=== PATIENT | male | born 1935 | race African-American/Black ===

== ENCOUNTER 2019-01-09 16:48 | Observation (INO) | payer OTHER ==
--- NOTE | 2019-01-09 17:31 | ER ---
Nurse's Notes [facility] Name: Cliff Aguilar Age: 83 yrs Sex: Male : 1935 Arrival Date: 01/09/2019 Time: 16:55 Bed 5 Private MD: Festus Vences Diagnosis: Weakness;Fever, unspecified;Pneumonia due to other specified bacteria;Cough;Elevated white blood cell count;Unspecified kidney failure;Urinary tract infection, site not specified Presentation: 01/09 17:17 Presenting complaint: states: cough, congestion, fever since yesterday. Transition iw of care: patient was not received from another setting of care. Onset of symptoms was January 08, 2019. Risk Assessment: Do you want to hurt yourself or someone else? Patient reports no desire to harm self or others. Initial Sepsis Screen: Does the patient meet any 2 criteria? Temp <36.0*C (96.8*F)) or > 38.3*C (100.9*F). Initial Sepsis Screen: Does the patient have a suspected source of infection? Yes: Productive cough/pneumonia. Care prior to arrival: None. 17:17 Method Of Arrival: Wheelchair iw 17:17 Acuity: SHA 3 iw Triage Assessment: 17:20 General: Appears in no apparent distress. comfortable, Behavior is cooperative, bp appropriate for age, anxious. Pain: Denies pain. EENT: No deficits noted. Neuro: No deficits noted. Cardiovascular: No deficits noted. Respiratory: No deficits noted. GI: No signs and/or symptoms were reported involving the gastrointestinal system. : No signs and/or symptoms were reported regarding the genitourinary system. Derm: No deficits noted. Musculoskeletal: No deficits noted. Historical: - Allergies: 17:25 No Known Allergies; iw - Home Meds: 17:19 amlodipine 10 mg tab 1 tab once daily [Active]; aspirin 81 mg Oral TbEC 1 tab once iw daily [Active]; chlorthalidone 25 mg Oral tab 1 tab once daily [Active]; Coreg 12.5 mg Oral tab 1 tab 2 times per day [Active]; glipizide 10 mg Oral tab 1 tab once daily [Active]; ranitidine HCl 150 mg Oral cap 1 cap once daily [Active]; tamsulosin 0.4 mg Oral cp24 1 cap twice a day [Active]; - PMHx: 17:19 BPH; Diabetes - NIDDM; GERD; High Cholesterol; Hypertension; iw - PSHx: 17:19 Knee surgery; iw - Immunization history:: Adult Immunizations up to date. - Family history:: not pertinent. - Ebola Screening: : Patient negative for fever greater than or equal to 101.5 degrees Fahrenheit, and additional compatible Ebola Virus Disease symptoms Patient denies exposure to infectious person Patient denies travel to an Ebola-affected area in the 21 days before illness onset No symptoms or risks identified at this time. - Social history:: Smoking status: Patient/guardian denies using tobacco. Screenin:16 Abuse screen: Denies threats or abuse. Denies injuries from another. Nutritional bp screening: No deficits noted. Tuberculosis screening: No symptoms or risk factors identified. Fall Risk None identified. Assessment: 17:20 General: SEE TRIAGE NOTE. bp 18:15 Reassessment: ADMIT IN PROCESS, VS STABLE ON MONITOR. bp 18:50 Reassessment: PER MD, ADMIT ON HOLD FOR LAB RESULTS. bp 19:19 Reassessment: Patient and/or family updated on plan of care and expected duration. Pain tr5 level reassessed. Patient is alert, oriented x 3, equal unlabored respirations, skin warm/dry/pink. 20:27 Reassessment: Patient and/or family updated on plan of care and expected duration. Pain tr5 level reassessed. Patient is alert, oriented x 3, equal unlabored respirations, skin warm/dry/pink. Patient states feeling better. Vital Signs: 17:10 BP 118 / 59 LA Sitting (auto/lg); Pulse 82; Resp 20; Temp 102.8(O); Pulse Ox 99% ; jp3 Weight 106.59 kg (R); Height 5 ft. 10 in. (177.80 cm) (R); Pain 0/10; 18:18 BP 131 / 62; Pulse 70; Resp 22; Pulse Ox 98% ; bp 18:51 BP 122 / 87; Pulse 78; Resp 16; Pulse Ox 98% ; bp 19:55 BP 125 / 52; Pulse 74; Resp 16; Temp 98.6(O); Pulse Ox 100% on R/A; tr5 20:56 BP 122 / 63; Pulse 64; Resp 19; Pulse Ox 99% on R/A; tr5 17:10 Body Mass Index 33.72 (106.59 kg, 177.80 cm) jp3 17:10 patient complains of weakness jp3 ED Course: 16:55 Patient arrived in ED. dl4 16:55 Festus Vences MD is Private Physician. dl4 16:57 Fortino Nielsen MD is Attending Physician. brianna 17:07 Shamir Gonzalez, RAZIA is Primary Nurse. hj 17:11 Patient has correct armband on for positive identification. Placed in gown. Bed in low jp3 position. Call light in reach. Pillow given. Verbal reassurance given. equipment monitor phototypesetting on. Pulse ox on. NIBP on. 17:11 Patient maintains SpO2 saturation greater than 95% on room air. jp3 17:18 Triage completed. iw 17:20 Arm band placed on. bp 17:29 Festus Vences MD is Hospitalizing Provider. brianna 17:56 EKG done, by technician trainee. reviewed by Fortino Nielsen MD. sm3 18:10 Inserted saline lock: 20 gauge in right forearm, using aseptic technique. Blood bp collected. 18:16 No provider procedures requiring assistance completed. Patient admitted, IV remains in bp place. 18:30 Martin Salinas, RN is Primary Nurse. bp 19:19 Awaiting lab results. tr5 19:19 Report received from Martin RANDLE. equipment monitor phototypesetting on. Pulse ox on. NIBP on. tr5 19:40 Straight cath inserted, using sterile technique, 16 Fr. Specimen obtained. lp1 20:27 Report given to Dylan RANDLE. tr5 Administered Medications: 18:10 Drug: NS 0.9% 1000 ml Route: IV; Rate: 1 bolus; Site: right forearm; bp 20:29 Follow up: IV Status: Completed infusion; IV Intake: 1000ml tr5 18:10 Drug: NS 0.9% 1000 ml Route: IV; Rate: 125 ml/hr; Site: right forearm; bp 19:52 Follow up: IV Status: Infusion continued upon admission lp1 20:29 Follow up: IV Status: Infusion continued upon admission tr5 18:49 Drug: Tylenol 650 mg Route: PO; bp 19:52 Follow up: Response: Temperature is decreased lp1 18:50 Drug: NS 0.9% 1000 ml Route: IV; Rate: 1 bolus; Site: right forearm; bp 20:45 Follow up: IV Status: Completed infusion; IV Intake: 800ml lp1 19:45 Drug: Rocephin 2 grams Route: IV; Rate: per protocol; Site: right hand; lp1 20:30 Follow up: Response: No adverse reaction; IV Status: Completed infusion tr5 19:53 Drug: Zithromax 500 mg Route: IVPB; Infused Over: 1 hrs; Site: right hand; lp1 20:30 Follow up: Response: No adverse reaction; IV Status: Completed infusion; IV Intake: tr5 250ml Intake: 20:29 IV: 1000ml; Total: 1000ml. tr5 20:30 IV: 250ml; Total: 1250ml. tr5 20:45 IV: 800ml; Total: 2050ml. lp1 Outcome: 17:30 Decision to Hospitalize by Provider. brianna 19:53 Condition: stable lp1 19:53 Instructed on the need for admit. 20:27 Admitted to Med/surg accompanied by tech, via stretcher, with chart, Report called to trCarlos Richardson RN 21:05 Patient left the ED. tr5 Signatures: Fortino Nielsen MD MD cha Williams, Irene, RN RAZIA iw Lolita De Paz, RAZIA RN lp1 Shamir Gonzalez RN Martin Hernandez RN RN bp Montes, Shakira 3 Rubin Skinner jp3 Brandon Davey dl4 Polo Carnes, RAZIA RN tr5 Corrections: (The following items were deleted from the chart) 19:56 19:55 BP 125 / 52; Pulse 74bpm; Resp 16bpm; Pulse Ox 100% RA; tr5 tr5
--- NOTE | 2019-01-09 17:32 | EDPHYS ---
Physician Documentation [facility] Name: Cliff Aguilar Age: 83 yrs Sex: Male : 1935 Arrival Date: 01/09/2019 Time: 16:55 Bed 5 Private MD: Festus Vences ED Physician Fortino Nielsen HPI: 01/09 17:17 This 83 yrs old Black Male presents to ER via Unassigned with complaints of General brianna Weakness. 17:17 fever and cough. The patient or guardian reports cough. Onset: The symptoms/episode brianna began/occurred 1 day(s) ago. Severity of symptoms: At their worst the symptoms were mild, in the emergency department the symptoms are unchanged. Modifying factors: The symptoms are alleviated by cool environment, the symptoms are aggravated by exertion. The patient reports fever, that was measured at 102 degrees Fahrenheit. Modifying factors: there are no obvious modifying factors. 17:19 Associated signs and symptoms: Pertinent positives: fever. brianna Historical: - Allergies: 17:25 No Known Allergies; iw - Home Meds: 17:19 amlodipine 10 mg tab 1 tab once daily [Active]; aspirin 81 mg Oral TbEC 1 tab once iw daily [Active]; chlorthalidone 25 mg Oral tab 1 tab once daily [Active]; Coreg 12.5 mg Oral tab 1 tab 2 times per day [Active]; glipizide 10 mg Oral tab 1 tab once daily [Active]; ranitidine HCl 150 mg Oral cap 1 cap once daily [Active]; tamsulosin 0.4 mg Oral cp24 1 cap twice a day [Active]; - PMHx: 17:19 BPH; Diabetes - NIDDM; GERD; High Cholesterol; Hypertension; iw - PSHx: 17:19 Knee surgery; iw - Immunization history:: Adult Immunizations up to date. - Family history:: not pertinent. - Ebola Screening: : Patient negative for fever greater than or equal to 101.5 degrees Fahrenheit, and additional compatible Ebola Virus Disease symptoms Patient denies exposure to infectious person Patient denies travel to an Ebola-affected area in the 21 days before illness onset No symptoms or risks identified at this time. - Social history:: Smoking status: Patient/guardian denies using tobacco. ROS: 17:17 Eyes: Negative for injury, pain, redness, and discharge, ENT: Negative for injury, brianna pain, and discharge, Neck: Negative for injury, pain, and swelling, Cardiovascular: Negative for chest pain, palpitations, and edema, Abdomen/GI: Negative for abdominal pain, nausea, vomiting, diarrhea, and constipation, Back: Negative for injury and pain, : Negative for injury, bleeding, discharge, and swelling, MS/Extremity: Negative for injury and deformity, Skin: Negative for injury, rash, and discoloration, Neuro: Negative for headache, weakness, numbness, tingling, and seizure, Psych: Negative for depression, anxiety, suicide ideation, homicidal ideation, and hallucinations, Allergy/Immunology: Negative for hives, rash, and allergies, Endocrine: Negative for neck swelling, polydipsia, polyuria, polyphagia, and marked weight changes, Hematologic/Lymphatic: Negative for swollen nodes, abnormal bleeding, and unusual bruising. 17:17 Constitutional: Positive for body aches, chills, fatigue, fever, malaise. 17:17 Respiratory: Positive for cough, with no reported sputum. Exam: 17:17 Head/Face: Normocephalic, atraumatic. Eyes: Pupils equal round and reactive to light, brianna extra-ocular motions intact. Lids and lashes normal. Conjunctiva and sclera are non-icteric and not injected. Cornea within normal limits. Periorbital areas with no swelling, redness, or edema. ENT: Nares patent. No nasal discharge, no septal abnormalities noted. Tympanic membranes are normal and external auditory canals are clear. Oropharynx with no redness, swelling, or masses, exudates, or evidence of obstruction, uvula midline. Mucous membranes moist. Neck: Trachea midline, no thyromegaly or masses palpated, and no cervical lymphadenopathy. Supple, full range of motion without nuchal rigidity, or vertebral point tenderness. No Meningismus. Chest/axilla: Normal chest wall appearance and motion. Nontender with no deformity. No lesions are appreciated. Cardiovascular: Regular rate and rhythm with a normal S1 and S2. No gallops, murmurs, or rubs. Normal PMI, no JVD. No pulse deficits. Respiratory: Lungs have equal breath sounds bilaterally, clear to auscultation and percussion. No rales, rhonchi or wheezes noted. No increased work of breathing, no retractions or nasal flaring. Abdomen/GI: Soft, non-tender, with normal bowel sounds. No distension or tympany. No guarding or rebound. No evidence of tenderness throughout. Back: No spinal tenderness. No costovertebral tenderness. Full range of motion. Skin: Warm, dry with normal turgor. Normal color with no rashes, no lesions, and no evidence of cellulitis. MS/ Extremity: Pulses equal, no cyanosis. Neurovascular intact. Full, normal range of motion. Neuro: Awake and alert, GCS 15, oriented to person, place, time, and situation. Cranial nerves II-XII grossly intact. Motor strength 5/5 in all extremities. Sensory grossly intact. Cerebellar exam normal. Normal gait. Psych: Awake, alert, with orientation to person, place and time. Behavior, mood, and affect are within normal limits. 17:17 Constitutional: The patient appears febrile, lethargic. Vital Signs: 17:10 BP 118 / 59 LA Sitting (auto/lg); Pulse 82; Resp 20; Temp 102.8(O); Pulse Ox 99% ; jp3 Weight 106.59 kg (R); Height 5 ft. 10 in. (177.80 cm) (R); Pain 0/10; 18:18 BP 131 / 62; Pulse 70; Resp 22; Pulse Ox 98% ; bp 18:51 BP 122 / 87; Pulse 78; Resp 16; Pulse Ox 98% ; bp 19:55 BP 125 / 52; Pulse 74; Resp 16; Temp 98.6(O); Pulse Ox 100% on R/A; tr5 20:56 BP 122 / 63; Pulse 64; Resp 19; Pulse Ox 99% on R/A; tr5 17:10 Body Mass Index 33.72 (106.59 kg, 177.80 cm) jp3 17:10 patient complains of weakness 3 MDM: 16:57 Patient medically screened. [facility] 17:17 Data reviewed: vital signs, nurses notes, lab test result(s), EKG, radiologic studies, [facility] plain films. 01/09 17:16 Order name: Basic Metabolic Panel; Complete Time: 19:01 [facility] 01/09 17:16 Order name: CBC with Diff; Complete Time: 18:29 [facility] 01/09 17:16 Order name: LFT's; Complete Time: 19:01 [facility] 01/09 17:16 Order name: Magnesium; Complete Time: 19:01 [facility] 01/09 17:16 Order name: NT PRO-BNP; Complete Time: 19:01 [facility] 01/09 17:16 Order name: PT-INR; Complete Time: 19: [facility] 01/09 17:16 Order name: Troponin (emerg Dept Use Only); Complete Time: 19:01 [facility] 01/09 17:16 Order name: Blood Culture Adult (2) [facility] 01/09 17:16 Order name: Urine Culture [facility] 01/09 17:16 Order name: Lipase; Complete Time: 19:01 [facility] 01/09 17:16 Order name: Influenza Screen (a \T\ B); Complete Time: 19: [facility] 01/09 17:16 Order name: Lactate; Complete Time: 19: [facility] 01/09 17:16 Order name: Procalcitonin [facility] 01/09 19:43 Order name: Urine Dipstick--Ancillary (enter results) mw2 01/09 17:16 Order name: XRAY Chest (1 view) [facility] 01/09 17:16 Order name: EKG; Complete Time: 17:20 [facility] 01/09 17:16 Order name: Cardiac monitoring; Complete Time: 18:14 [facility] 01/09 17:16 Order name: EKG - Nurse/Tech; Complete Time: 18:14 [facility] 01/09 17:16 Order name: IV Saline Lock; Complete Time: 18:14 [facility] 01/09 17:16 Order name: Labs collected and sent; Complete Time: 18:14 [facility] 01/09 17:16 Order name: O2 Per Protocol; Complete Time: 18:14 [facility] 01/09 17:16 Order name: O2 Sat Monitoring; Complete Time: 18:14 [facility] 01/09 18:12 Order name: RAD; Complete Time: 18:29 [facility] 01/09 20:14 Order name: Urine Dipstick-Ancillary [facility] 01/09 17:16 Order name: Urine Dipstick-Ancillary (obtain specimen); Complete Time: 19:56 [facility] Administered Medications: 18:10 Drug: NS 0.9% 1000 ml Route: IV; Rate: 1 bolus; Site: right forearm; bp 20:29 Follow up: IV Status: Completed infusion; IV Intake: 1000ml tr5 18:10 Drug: NS 0.9% 1000 ml Route: IV; Rate: 125 ml/hr; Site: right forearm; bp 19:52 Follow up: IV Status: Infusion continued upon admission lp1 20:29 Follow up: IV Status: Infusion continued upon admission tr5 18:49 Drug: Tylenol 650 mg Route: PO; bp 19:52 Follow up: Response: Temperature is decreased lp1 18:50 Drug: NS 0.9% 1000 ml Route: IV; Rate: 1 bolus; Site: right forearm; bp 20:45 Follow up: IV Status: Completed infusion; IV Intake: 800ml lp1 19:45 Drug: Rocephin 2 grams Route: IV; Rate: per protocol; Site: right hand; lp1 20:30 Follow up: Response: No adverse reaction; IV Status: Completed infusion tr5 19:53 Drug: Zithromax 500 mg Route: IVPB; Infused Over: 1 hrs; Site: right hand; lp1 20:30 Follow up: Response: No adverse reaction; IV Status: Completed infusion; IV Intake: tr5 250ml Disposition: 01/09/19 17:30 Hospitalization ordered by Festus Vences for Inpatient Admission. Preliminary diagnosis are Weakness, Fever, unspecified, Pneumonia due to other specified bacteria, Cough, Elevated white blood cell count, Unspecified kidney failure, Urinary tract infection, site not specified. - Bed requested for Telemetry/MedSurg (Inpatient). - Status is Inpatient Admission. tr5 - Condition is Stable. - Problem is new. - Symptoms have improved. UTI on Admission? Yes Signatures: Dispatcher [employer] Whitney Ochoa RN RN dw Anderson, Corey, MD MD cha Williams, Irene, RN RN Lolita De Paz RN RN [facility] Martin Salinas RN RN bp Rodriguez, Tommie, RN RN tr5 Corrections: (The following items were deleted from the chart) 17:48 17:30 Hospitalization Ordered by Festus Vences MD for Inpatient Admission. Preliminary dw diagnosis is Weakness; Fever, unspecified; Pneumonia due to other specified bacteria; Cough. Bed requested for Telemetry/MedSurg (Inpatient). Status is Inpatient Admission. Condition is Stable. Problem is new. Symptoms have improved. UTI on Admission? No. brianna 17:52 17:48 01/09/2019 17:30 Hospitalization Ordered by Festus Vences MD for Inpatient Admission. Preliminary diagnosis is Weakness; Fever, unspecified; Pneumonia due to other specified bacteria; Cough. Bed requested for Telemetry/MedSurg (Inpatient). Status is Inpatient Admission. Condition is Stable. Problem is new. Symptoms have improved. UTI on Admission? No. 18:30 17:52 01/09/2019 17:30 Hospitalization Ordered by Festus Vences MD for Inpatient brianna Admission. Preliminary diagnosis is Weakness; Fever, unspecified; Pneumonia due to other specified bacteria; Cough. Bed requested for Telemetry/MedSurg (Inpatient). Status is Inpatient Admission. Condition is Stable. Problem is new. Symptoms have improved. UTI on Admission? No. 18:59 18:30 01/09/2019 17:30 Hospitalization Ordered by Festus Vences MD for Inpatient brianna Admission. Preliminary diagnosis is Weakness; Fever, unspecified; Pneumonia due to other specified bacteria; Cough; Elevated white blood cell count. Bed requested for Telemetry/MedSurg (Inpatient). Status is Inpatient Admission. Condition is Stable. Problem is new. Symptoms have improved. UTI on Admission? No. [facility] 19:42 18:59 01/09/2019 17:30 Hospitalization Ordered by Festus Vences MD for Inpatient brianna Admission. Preliminary diagnosis is Weakness; Fever, unspecified; Pneumonia due to other specified bacteria; Cough; Elevated white blood cell count; Unspecified kidney failure. Bed requested for Telemetry/MedSurg (Inpatient). Status is Inpatient Admission. Condition is Stable. Problem is new. Symptoms have improved. UTI on Admission? No. [facility] 21:05 19:42 01/09/2019 17:30 Hospitalization Ordered by Festus Vences MD for Inpatient tr5 Admission. Preliminary diagnosis is Weakness; Fever, unspecified; Pneumonia due to other specified bacteria; Cough; Elevated white blood cell count; Unspecified kidney failure; Urinary tract infection, site not specified. Bed requested for Telemetry/MedSurg (Inpatient). Status is Inpatient Admission. Condition is Stable. Problem is new. Symptoms have improved. UTI on Admission? Yes. brianna
[2019-01-09] MEDS ORDERED: GLUCAGON 1 MG/VIAL IM PRN (17:38)
[2019-01-09] MEDS ORDERED: D50W 25 GM/50 ML SYRINGE IV PRN (17:38)
--- NOTE | 2019-01-09 18:07 | RAD REPORT ---
EXAM DESCRIPTION: [place] Single View01/09/2019 5:55 pm CLINICAL HISTORY: Cough COMPARISON: December 2017 FINDINGS: The lungs appear clear of acute infiltrate. The heart is mildly enlarged IMPRESSION: No acute abnormalities displayed
[2019-01-09 18:22] LABS: Absolute Lymphocytes (CBC) 3.4 K/uL (0.7-4.9); Basophils % 0.2 % (0-1.3); Hematocrit 38.6 % (39.6-49.0); Lymphocytes % 19.4 % (15.3-44.8); MPV 8.2 fL (7.6-11.3); RBC Red Blood Cell Count 4.27 M/uL (4.33-5.43)
[2019-01-09 18:29] LABS: Protime INR 1.12
[2019-01-09 18:47] LABS: ALT/SGPT 16 U/L (12-78); AST/SGOT 15 U/L (15-37); Albumin 3.7 g/dL (3.4-5.0); Alkaline Phosphatase 93 U/L (45-117); BUN Blood Urea Nitrogen 22 mg/dL (7-18); Bicarbonate 25 mmol/L (21-32); Bilirubin Direct 0.5 mg/dL (0-0.2); Bilirubin Total 2.4 mg/dL (0.2-1.0); Glucose Level 96 mg/dL (74-106); Lipase 111 U/L (73-393); NT PRO-BNP 635 pg/mL (<450); Potassium 4.1 mmol/L (3.5-5.1); Protein, Total 7.9 g/dL (6.4-8.2); Sodium Level 135 mmol/L (136-145); Troponin (Emerg Dept Use Only) < 0.02 ng/mL (0.0-0.045)
[2019-01-09] MEDS ORDERED: NA CHLORIDE 0.9% 2,000 ML ONE (18:55)
[2019-01-09] MEDS ORDERED: ACETAMINOPHEN 325 MG TABLET ONE (18:55)
[2019-01-09] MEDS ORDERED: CEFTRIAXONE/SWI 2gm 2 GM/20 ML SYR IV ONE (19:00)
[2019-01-09] MEDS ORDERED: AZITHROMYCIN IV 500 MG in NA CHLORIDE 0.9% 250 ML IVPB ONE (19:00)
[2019-01-09 20:11] LABS: Urine Blood TRACE (NEG); Urine Glucose NEGATIVE (NEG); Urine Protein 2+ (NEG); Urine pH 5.5 (5.0-7.0)
[2019-01-09] MEDS ORDERED: INSULIN -REGULAR HUMAN 50 UNIT/0.5 ML ML SQ SCH (21:00)
[2019-01-09] MEDS ORDERED: ONDANSETRON 4 MG/2 ML VIAL IV PRN (21:29)
[2019-01-09] MEDS: NA CHLORIDE 0.9% 1,000 ML IV SCH (21:29)
[2019-01-09] MEDS ORDERED: ALBUTEROL 2.5 MG/3 ML NEB SOL NEB PRN (21:29)
[2019-01-09] MEDS ORDERED: MORPHINE 4 MG/ML SYR IV PRN (21:29)
[2019-01-09] MEDS ORDERED: IPRATROPIUM BROM 0.5MG/2.5ML NEB PRN (21:29)
[2019-01-09 22:08] VITALS: BMI 33.1
[2019-01-09] MEDS: FAMOTIDINE 20 MG/2 ML VIAL IV SCH (22:22)
[2019-01-10] MEDS: NA CHLORIDE 0.9% 1,000 ML IV SCH ×3 (05:40→21:07)
[2019-01-10 05:46] LABS: Absolute Lymphocytes (CBC) 3.4 K/uL (0.7-4.9); Basophils % 0.4 % (0-1.3); Hematocrit 34.5 % (39.6-49.0); Lymphocytes % 18.1 % (15.3-44.8); MPV 8.5 fL (7.6-11.3); RBC Red Blood Cell Count 3.85 M/uL (4.33-5.43)
[2019-01-10] MEDS: ACETAMINOPHEN 500 MG TAB PO PRN ×2 (05:47→17:11)
[2019-01-10 06:01] LABS: Potassium 3.9 mmol/L (3.5-5.1)
[2019-01-10] MEDS ORDERED: PNEUMOCOCCAL VACCINE 0.5 ML IMVAC ONE (08:00)
--- NOTE | 2019-01-10 08:31 | RAD REPORT ---
EXAM DESCRIPTION: RAD - Chest Single View - 01/10/2019 6:22 am CLINICAL HISTORY: Chest Pain Chest pain. COMPARISON: Chest Single View dated 01/09/2019; Chest Pa And Lat (2 Views) dated 01/07/2018; Chest Pa And Lat (2 Views) dated 03/26/2017; Chest Single View dated 03/01/2017 FINDINGS: Portable technique limits examination quality. The lungs are grossly clear. The heart is moderately enlarged in size. No displaced fractures.
[2019-01-10] MEDS ORDERED: CEFTRIAXONE 1 GM/NS 50 ML 1 GM/50 ML BAG IV SCH (09:00)
[2019-01-10] MEDS: CEFTRIAXONE/SWI 1gm 1 GM/10 ML SYR IV SCH ×2 (09:00→21:00)
[2019-01-10] MEDS ORDERED: AZITHROMYCIN IV 500 MG in NA CHLORIDE 0.9% 250 ML IVPB SCH ×2 (09:00→21:00)
[2019-01-10] MEDS: FAMOTIDINE 20 MG/2 ML VIAL IV SCH (10:17)
--- NOTE | 2019-01-10 13:35 | EKG ---
Test Date: 2019-01-10 Test Time: 07:59:13 Heel Room Supervisor: RICHA MEASUREMENT RESULTS: Intervals: Rate: 74 NV: 180 QRSD: 92 QT: 408 QTc: 452 [place]: P: 35 NV: 180 QRS: -43 T: 40 INTERPRETIVE STATEMENTS: Normal sinus rhythm Possible Left atrial enlargement Left axis deviation Anterior infarct, age undetermined Abnormal ECG Compared to ECG 01/09/2019 17:49:27 Left-axis deviation now present Left anterior fascicular block no longer present Myocardial infarct finding still present Electronically Signed On 01-10-19 13:34:02 CDT by Noe Brown
--- NOTE | 2019-01-10 13:38 | EKG ---
Test Date: 2019-01-09 Test Time: 17:49:27 [employer] Supervisor: RICHA MEASUREMENT RESULTS: Intervals: Rate: 70 RI: 186 QRSD: 94 QT: 388 QTc: 419 [place]: P: 39 RI: 186 QRS: -54 T: 42 INTERPRETIVE STATEMENTS: Normal sinus rhythm Possible Left atrial enlargement Left anterior fascicular block Inferior infarct, age undetermined Anterior infarct, age undetermined Abnormal ECG Compared to ECG 03/01/2017 00:33:36 Left anterior fascicular block now present Myocardial infarct finding now present Electronically Signed On 01-10-19 13:34:23 CDT by Noe Brown
[2019-01-10] MEDS ORDERED: ALBUTEROL 2.5 MG/3 ML NEB SOL NEB PRN (14:30)
[2019-01-10] MEDS ORDERED: IPRATROPIUM BROM 0.5MG/2.5ML NEB PRN (14:31)
[2019-01-10] MEDS: CARVEDILOL 12.5 MG TAB PO SCH (21:05)
[2019-01-10] MEDS: CIPROFLOXACIN 400mg IV 400 MG/200 ML BAG IV SCH (21:06)
[2019-01-10] MEDS: TAMSULOSIN 0.4 MG SR CAP PO SCH (21:06)
--- NOTE | 2019-01-11 00:11 | PN ---
Date of Progress Note: 01/10/2019 The patient states he feels somewhat better today. His temperature has dropped down, although he sti ll running a low-grade fever. His urinalysis was 4+ E coli. Chest x-ray x2 showed no evidence of pn eumonia and patient states he has a minimal amount of cough. Antibiotics will be changed from Zithro max to Cipro and continue with Rocephin. He was also started on physical therapy. Had a vascular wo rkup, which was scheduled for today will be rescheduled possibly prior to discharge depending on his physical status. HR/MODL Voice ID: [id number] Report ID: [id number]
--- NOTE | 2019-01-11 00:11 | HP ---
Date of Admission: 01/09/2019 Entrance Complaint: Cough, chills, fever. History Of Present Illness: The patient presented to the emergency room with a rather sudden onset o f what was described as shaking, unsteadiness following going to the bathroom. The patient had an im pression that it was congestion and cough and the possibility of this being the source of the fever a nd some general malaise. The patient has had some altered mental status over the past few months and was recently seen in the office where a vascular workup is in process. Past Medical History: As mentioned above significant altered mental status according to family membe rs over the past few months, also has a history of hypertension and has been in relatively good contr ol on medication and has had some renal insufficiency. He has been seen by urologist and nephrologis t for a number of years. Also has an IDDM, which has been in good control on diet and medication. Family History: Noncontributory. Social History: Nonsmoker, nondrinker. Physical Examination: General: He is somewhat disorientated elderly male. Vital Signs: Stable vital signs. Head and Neck: Normocephalic. Pupils equal, reactive to light and accommodation. Fundi negative. Trachea midline. Thyroid not palpable. ENT: Negative. Chest: Occasional high-pitched rhonchi and rales at both bases. Adequate air entry and movement francisca aterally. Cardiovascular: PMI midclavicular line. Heart sounds normal. Peripheral pulses present and equal b ilaterally. Abdomen: No organomegaly. Bowel sounds present. Extremities: Moderately dehydrated. Good tone and movement bilaterally. Reflexes physiologic. Rectal: Deferred. Impression: Fever of unknown origin, possible pneumonitis, possible urinary tract infection. Plan: Patient will be admitted, placed on IV antibiotics. Depending on results of culture, further treatment will be given. HR/MODL Voice ID: [id number]
[2019-01-11 06:39] LABS: Absolute Lymphocytes (CBC) 4.2 K/uL (0.7-4.9); Basophils % 0.2 % (0-1.3); Hematocrit 33.5 % (39.6-49.0); Lymphocytes % 24.2 % (15.3-44.8); MPV 8.5 fL (7.6-11.3); RBC Red Blood Cell Count 3.69 M/uL (4.33-5.43)
[2019-01-11 08:34] LABS: Urine Appearance CLEAR; Urine Bilirubin NEGATIVE (NEG); Urine Blood TRACE (NEG); Urine Color YELLOW; Urine Glucose NEGATIVE (NEG); Urine Protein NEGATIVE (NEG); Urine pH 5.5 (5.0-7.0)
[2019-01-11 08:37] LABS: Urine Microscopic Reflex ORDER UMIC
[2019-01-11 08:49] LABS: Urine RBC <5 /HPF (NONE SEEN)
[2019-01-11 08:50] LABS: Urine Bacteria <20 /HPF (NONE SEEN)
[2019-01-11 08:53] LABS: Urine Culture Reflex Order NOT NEEDED
[2019-01-11] MEDS: CARVEDILOL 12.5 MG TAB PO SCH ×2 (08:58→21:15)
[2019-01-11] MEDS: FAMOTIDINE 20 MG/2 ML VIAL IV SCH (08:58)
[2019-01-11] MEDS: CEFTRIAXONE/SWI 1gm 1 GM/10 ML SYR IV SCH (08:59)
[2019-01-11] MEDS: AMLODIPINE 10 MG TAB PO SCH (08:59)
[2019-01-11] MEDS: TAMSULOSIN 0.4 MG SR CAP PO SCH ×2 (08:59→21:15)
[2019-01-11] MEDS: CIPROFLOXACIN 400mg IV 400 MG/200 ML BAG IV SCH ×2 (08:59→21:15)
--- NOTE | 2019-01-11 15:01 | RAD REPORT ---
EXAM DESCRIPTION: USCarotid Artery Bilateral01/11/2019 2:47 pm CLINICAL HISTORY: Syncope COMPARISON: None FINDINGS: The velocity of the right internal carotid artery equals 353 cm/sec. The right ICA/CCA rat io 3.3 The velocity of the left internal carotid artery equals 114 cm/sec. The left ICA/CCA ratio 0.7 Marked plaque is present within the right internal carotid artery. 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 Mild 0-49% stenosis Moderate 50-69% stenosis Severe 70-99% stenosis
[2019-01-11 20:37] VITALS: O2SAT 98
[2019-01-11] MEDS ORDERED: TEMAZEPAM 15 MG CAP PO PRN (22:50)
[2019-01-12] MEDS: NA CHLORIDE 0.9% 1,000 ML IV SCH (03:05)
[2019-01-12 07:16] LABS: Absolute Lymphocytes (CBC) 3.9 K/uL (0.7-4.9); Basophils % 0.3 % (0-1.3); Hematocrit 35.4 % (39.6-49.0); Lymphocytes % 31.7 % (15.3-44.8); MPV 8.7 fL (7.6-11.3); RBC Red Blood Cell Count 3.94 M/uL (4.33-5.43)
[2019-01-12] MEDS: AMLODIPINE 10 MG TAB PO SCH (08:04)
[2019-01-12] MEDS: FAMOTIDINE 20 MG/2 ML VIAL IV SCH (08:04)
[2019-01-12] MEDS: CIPROFLOXACIN 400mg IV 400 MG/200 ML BAG IV SCH (08:04)
[2019-01-12] MEDS: TAMSULOSIN 0.4 MG SR CAP PO SCH (08:05)
[2019-01-12] MEDS: CARVEDILOL 12.5 MG TAB PO SCH (08:05)
[2019-01-12 14:50] VITALS: BP 138/79; TEMP 97.3
--- NOTE | 2019-01-12 19:18 | PN ---
Patient states he feels a little bit better. For the first time, his white count has dropped and his intake is adequate. I feel he could be discharged safely on Cipro 500 mg twice a day for 10 days, t o follow up in the office in regard to his UTI. During his hospital stay, the carotid Dopplers were done and revealed a significant lesion on the right. Discussion of followup with Cardiology resulted in being referred to the [facility] for carotid angios, and depending on the results, eithe r a surgical procedure in [place], endarterectomy, and/or conservative care. PT was also involved an d the outpatient physical therapy is obviously a possibility for him. This will be discussed with th e family when he is seen in the office next week. He is encouraged for fluid intake, continue on his usual medications with the addition of Cipro. Final Diagnoses: Urosepsis, possibly lower urinary tract; altered mental status; carotid stenosis; n ah-qoxfxya-nprcmyvic diabetes mellitus, good control. HR/MODL Voice ID: [id number] Report ID: [id number]
== END 2019-01-12 16:20 | disposition home or self-care (01) ==
LOC: ER 16:48 → ERHOLD 17:33 → INTOOBSV 17:33 → 2ND 20:29
PROVIDERS: ADMIT Family Medicine; ATTEND Family Medicine
DX: R50.9 Fever, unspecified (principal); R41.82 Altered mental status, unspecified; R53.81 Other malaise; I65.21 Occlusion and stenosis of right carotid artery; E11.9 Type 2 diabetes mellitus without complications
CPT/HCPCS: 96365; 96361; 93005 ×2; 87040 ×4; 87088; 85025 ×4; 87086; 80048 ×3; 36415 ×3; 83735; 85610; 82962 ×11; 80076; 83605; 87077; 87186; 81003; 84484 ×3; 83690; 84145; 83880 ×2; 87804 ×2; 71045 ×2; 93880; 97112 ×3; 97116 ×4; 97161; 97530; 94640; 94760 ×6; 51702; 99285; J0456 ×2; J0696 ×4; J7030 ×5; J0744 ×4; G0378 ×2; 81015

== ENCOUNTER 2019-01-26 06:42 | Day surgery (SDC) | payer OTHER ==
[2019-01-25 14:48] VITALS: BMI 33.1
[2019-01-25 15:32] LABS: Protime INR 1.02
[2019-01-25 15:34] LABS: Potassium 4.1 mmol/L (3.5-5.1)
[2019-01-26] MEDS ORDERED: NA CHLORIDE 0.9% 500 ML ONE (06:50)
[2019-01-26] MEDS ORDERED: HEPA 1000U/500MLS 1,000 UNIT/500 ML BAG IV ONE (07:16)
[2019-01-26] MEDS ORDERED: LIDOCAINE 1% MPF 30 ML VIAL ONE (07:17)
[2019-01-26] MEDS ORDERED: FENTANYL CITR 100 MCG/2 ML ONE (07:23)
[2019-01-26] MEDS ORDERED: MIDAZOLAM HCL 2 MG/2 ML INJ ONE (07:23)
[2019-01-26] MEDS ORDERED: ATROPINE SULF 1 MG/10 ML SYR IV ONE (07:24)
[2019-01-26] MEDS ORDERED: NA CHLORIDE 0.9% 0 ML ONE (07:24)
[2019-01-26] MEDS ORDERED: ACETYLCYST 20% 4 ML VIAL IH ONE (07:26)
[2019-01-26] MEDS ORDERED: ACETYLCYST 20% 800 MG/4 ML VIAL PO ONE (10:00)
[2019-01-26 14:31] VITALS: BP 139/60; TEMP 97.8; O2SAT 97
--- NOTE | 2019-01-27 03:33 | OP ---
Surgeon: Noe Brown MD Job Training Specialist: Di Varma. Procedure: The patient admitted as an outpatient on 01/26/2019, for left heart catheterization with selective coronary arteriogram and selective bilateral carotid angiogram. Indication: Chest pain, positive stress test and abnormal carotid Doppler. Description Of Procedure: The patient was prepped and draped in the routine sterile fashion, given 2 mg of Versed for IV sedation. A 6-Mongolian sheath was introduced in the right common femoral artery. StarClose was used to close the case. Angiography there was normal. A 6-Mongolian left Sia cathet er was introduced first. Coronary arteriography of the left main shows dual ostium for the circumfle x and LAD with diffuse plaquing throughout and no significant focal stenosis. A Sia 6-Mongolian JR4 was used for the right coronary that was basically a small vessel again with tortuosity and plaquing , but no focal stenosis. Sia catheter was then used to select the right common carotid artery an d the left common carotid artery. Angiography there showed about an 80%-90% stenosis in the ostium o f the right internal carotid artery. The left internal carotid artery had about 30% plaque. There w ere no complications. Blood loss was 5 cc. Total conscious sedation was 40 minutes. Final Diagnoses: Severe cerebrovascular disease, mild coronary artery disease. Plan: For referral to [place] for a right carotid end arterectomy. This CD will be given to the sarah lopez. Case was discussed with the family and the patient. SUMI/MELE Voice ID: [id number] Report ID: [id number]
== END 2019-01-26 14:50 | disposition home or self-care (01) ==
LOC: CCL 06:42
DX: I25.10 Atherosclerotic heart disease of native coronary artery without angina pectoris (principal); I65.21 Occlusion and stenosis of right carotid artery; I10 Essential (primary) hypertension; E78.5 Hyperlipidemia, unspecified; R94.31 Abnormal electrocardiogram [ECG] [EKG]; E11.9 Type 2 diabetes mellitus without complications; K21.9 Gastro-esophageal reflux disease without esophagitis; N40.0 Benign prostatic hyperplasia without lower urinary tract symptoms
CPT/HCPCS: 80048; 36415; 85610; 82962 ×2; 85730; 93454; 36222; C1893; J2250; J3010; J0583

== ENCOUNTER 2020-07-03 16:05 | Inpatient (IN) | payer OTHER ==
--- OUTSIDE RECORDS SUMMARY | 2020-07-03 16:07 | XMS REPORT | Clinical Summary ---
:1935 Author Organization [facility] Address [address] [place] [address] Care Team Providers Name Role Phone Festus Vences MD Primary Care Provider Giovanny Ryan Unavailable Allergies No Known Allergies Medications Medication Sig Dispensed Refills Start Date End Date Status amLODIPine Take 10 mg by mouth 0 06/18/2016 Active (NORVASC) 10 MG daily. tablet carvedilol (COREG) Take 12.5 mg by 1 01/05/2019 Active 12.5 MG tablet mouth 2 (two) times daily. lactulose TK 30 ML PO BID PRF 0 07/29/2016 Active (GENERLAC) 10 CONSTIPATION gram/15 mL solution lovastatin Take 20 mg by mouth 0 06/19/2016 Active (MEVACOR) 20 MG every evening. tablet tamsulosin Take 0.4 mg by 3 12/12/2018 Act say (FLOMAX) 0.4 mg mouth 2 (two) times Cap 24 hr capsule daily. glipiZIDE Take 1 tablet (5 mg 30 tablet 1 03/15/2019 Active (GLUCOTROL) 5 MG total) by mouth tablet daily. famotidine Take 1 tablet (20 30 tablet 1 03/15/2019 Active (PEPCID) 20 MG mg total) by mouth tablet daily. aspirin 81 MG EC Take 1 tablet (81 90 tablet 3 02/02/201901/13 tablet mg total) by mouth daily. clopidogrel Take 1 tablet (75 90 tablet 3 02/02/2019 0 (PLAVIX) 75 mg mg total) by mouth tablet daily. losartan (COZAAR) Take 1 tablet (25 30 tablet 1 03/16/201907/2019 25 MG tablet mg total) by mouth daily. Active Problems Problem Noted Date Altered mental status 03/12/2019 Syncope, unspecified syncope type 03/10/2019 Carotid artery stenosis 01/31/2019 Carotid stenosis 01/31/2019 S/P carotid endarterectomy (Levi 01/31) 01/31/2019 Respiratory insufficiency 01/31/2019 Hypertensive urgency 01/31/2019 Diabetes mellitus 01/31/2019 GERD (gastroesophageal reflux disease) 01/31/2019 Hyperlipidemia 01/31/2019 Hypertension 01/31/2019 Carotid artery occlusion Family History Medical History Relation Name Comments Heart disease Brother Heart disease Father Hyperlipidemia Father Hypertension Father Heart disease Mother Hyperlipidemia Mother Hypertension Mother Heart disease Sister Relation Name Status Comments Brother Father Mother Sister Social History Tobacco Use Types Packs/Day Years Used Date Never Smoker Smokeless Tobacco: Never Used Alcohol Use Drinks/Week oz/Week Comments No Alcohol Habits Answer Date Recorded How often do you have a drink containing alcohol? Never 01/30/2019 How many drinks containing alcohol do you have on a typical Not asked day when you are drinking? How often do you have six or more drinks on one occasion? No t asked Sex Assigned at Date Recorded Not on file Last Filed Vital Signs Not on file Plan of Treatment Health Maintenance Due Date Last Done Comments DIABETIC EYE EXAM 1945 DIABETIC FOOT EXAM 1945 PNEUMOCOCCAL 65+ YRS (1 of 1 - [id number]) 1998 MEDICARE ANNUAL WELLNESS (YEAR 2 or FIRST YEAR if no 06/15/2019 IPPE) HEMOGLOBIN A1C 08/04/2019 02/01/2019 URINE MICROALBUMIN 01/10/2020 01/09/2019 INFLUENZA VACCINE (#1) 2020 05/11/2017 Implants Implanted Type Area Rn Transitional Care Device Shelf Model / Identifier Expiration Serial / Lot Date Grft Hemshld Dbl Kaleb 0.3x3.0in [id number] - [id number] NTS Right: GETINGE 07/14/2023 [id number] / Implanted: Qty: 1 on 01/31/2019 by Manan Jenkins MD at [facility] Neck IND:JEANINET:ERICH [id number] / [id number] Results Not on fileafter 07/03/2019 Insurance Payer Benefit Plan / Subscriber ID Effective Dates Phone Addre ss Type Group AETNA - AETNA MEDICARE [id number] 2018-Donald [phone] [address] MEDICARE MGD HMO POS PPO t [id number] CARE [place] [id number] [phone] ([address]) [place] [id number] Advance Directives For more information, please contact: [phone] Code Status Date Activated Date Inactivated Comments Full Code 01/31/2019 5:50 AM 02/02/2019 5:06 PM This code status was determined by: Patient
--- OUTSIDE RECORDS SUMMARY | 2020-07-03 16:08 | XMS REPORT | Continuity of Care Document ---
:1935 Author Organization [facility] t Address [address] [place] [address] Care Team Providers Name Role Phone Festus Vences MD Primary Care Physician Rocky Galo MD, Pavithra Renteria Attending Clinician [phone] Cara AIKEN Attending Clinician Unavailable MAURILIO SIMS Attending Clinician Unavailable Jacqueline BURCH Admitting Clinician Unavailable MAURILIO SIMS Admitting Clinician Unavailable Problems Condition Condition Condition Status Onset Resolution Last Treating Co mments Source Name Details Category Date Date Treatment Clinician Date Altered Altered Disease Active [facility] status status 00:00: Medical 00 [place] Syncope, Syncope, Disease [facility] unspecifie 03-10 Angy kes - d syncope d syncope 00:00: Medi magdalena type type 00 Center Carotid Carotid Disease Active [facility] stenosis stenosis 01-31 [facility] 00 Center S/P S/P Disease Active [facility] carotid carotid 01-31 [facility] - endarterec endarterec 00:00: Me dical gee gee 00 Center (Levi (Levi 01/31) 01/31) Respirator Respirator Disease Active [facility] y y 01-31 [facility] - insufficie insufficie 00:00: Me dical ncy ncy 00 Center Hypertensi Hypertensi Disease Active [facility] ve urgency ve urgency 01-31 Angy kes - 00:00: Medical 00 [place] Diabetes Diabetes Disease Active 2019-0 [facility] mellitus [facility]20 [facility] 00 Center GERD GERD Disease Active [facility] (gastroeso (gastroeso 8- Angy kes - phageal phageal 00:00: Medical reflux reflux 00 Center disease) disease) Hyperlipid Hyperlipid Disease Active [facility] emia emia 20 [facility] 00:[facility] Medical 00 Center Hypertensi Hypertensi Disease Active [facility] on on 01-31 [facility] - 00:00: Medical 00 Center Carotid Carotid Disease Active [facility] artery artery [facility] - occlusion occlusion [facility] Allergies, Adverse Reactions, Alerts This patient has no known allergies or adverse reactions. Family History Family Member Diagnosis Comments Start Date Stop Date Source Natural brother Heart disease [facility] Natural father Heart disease [facility] Natural father Hyperlipidemia [facility] Natural father Hypertension [facility] Natural mother Heart disease [facility] Natural mother Hyperlipidemia [facility] Natural mother Hypertension [facility] Natural sister Heart disease [facility] Social History Social Habit Start Date Stop Date Quantity Comments Source History [facility] - Alcohol Std Drinks [facility] History [facility] Alcohol Binge [facility] ter Sex Assigned At [facility] Tobacco use and 2019-03-10 2019-03-10 Never used [facility] - exposure 00:00:00 00:00:00 [facility] Alcohol intake 2019-03-10 2019-03-10 Current [facility] es - 00:00:00 00:00:00 non-drinker of Medical nter alcohol (finding) History SDID 2019-01-30 2019-01-30 1 [facility] - Alcohol Frequency 00:00:00 00:00:00 [facility] Smoking Status Start Date Stop Date Source Never smoker [facility] edical [place] Medications Ordered Filled Start Stop Current Ordering Indication Dosage Frequency Signature Comments Components Source Medication Medication Date Date Medication? Clinician (SIG) Name Name losartan 2018-06- No 25mg QD Take [address] [facility] (COZAAR) 25 0-03 10-02 tablet (25 L ukes - MG tablet 00:00: 23:59 mg total) Me dical 00 :00 by mouth Center daily. glipiZIDE 2018-06 Yes 5mg QD Take [address] (GLUCOTROL) 0-02 tablet (5 Angely es - 5 MG tablet 00:00: mg total) M edical 00 by mouth Center daily. famotidine 2018-06 Yes 20mg QD Take 1 [facility] (PEPCID) 20 0-02 tablet (20 Angy kes - MG tablet 00:00: mg total) Med ical 00 by mouth Center daily. aspirin 81 2019- No 81mg QD Take [address] MG EC 02-02 tablet (81 [facility] - tablet 00:00: 23:59 mg total) Medic al 00 :00 by mouth Center daily. clopidogrel 2019- No 75mg QD Take [address] (PLAVIX) 75 02-02 tablet (75 L ukes - mg tablet 00:00: 23:59 mg total) Me dical 00 :00 by mouth Center daily. carvedilol Yes 12.5mg Q.5D Take 12.[address] (COREG) 7-25 mg by [facility] - 12.5 MG 00:00: mouth 2 Medical tablet 00 (two) Center times daily. tamsulosin Yes .4mg Q.5D Take 0.[address] (FLOMAX) 7-01 mg by [facility] - 0.4 mg Cap 00:00: mouth 2 Medi magdalena 24 hr 00 (two) Center capsule times daily. lactulose Yes TK [address] (GENERLAC) 2-15 PO BID PRF Angely es - 10 gram/15 00:00: CONSTIPATI M edical mL solution 00 ON Center lovastatin Yes 20mg QD Take [address] (MEVACOR) 1-06 by mouth [facility] - 20 MG 00:00: every Medical tablet 00 evening. Center amLODIPine Yes 10mg QD Take [address] (NORVASC) 1-05 by mouth [facility] - 10 MG 00:00: daily. Medical tablet 00 Center Procedures This patient has no known procedures. Plan of Care Planned Activity Planned Date Details Comments Source Future Scheduled 2020-02-13 INFLUENZA VACCINE (#1) [facility] - Test 00:00:00 [code = INFLUENZA Medical Ce nter VACCINE (#1)] Future Scheduled 2020-01-10 Urine screening for [facility] - Test 00:00:00 protein (procedure) Medical Center [code = 312538524] Future Scheduled 2019-08-[address] Angy kes - Test 00:00:00 measurement Medical Center (procedure) [code = 12227324] Future Scheduled 2019-06-[address] [facility] u[facility] - Test 00:00:00 WELLNESS (YEAR 2 or Medical Center FIRST YEAR if no IPPE) [code = MEDICARE ANNUAL WELLNESS (YEAR 2 or FIRST YEAR if no IPPE)] Future Scheduled 1998 PNEUMOCOCCAL 65+ [facility]RS [facility] - Test 00:00:00 (1 of 1 - Medical Center [id number]) [code = PNEUMOCOCCAL 65+ YRS (1 of 1 - [id number] PCV13)] Future Scheduled 1943 DIABETIC EYE EXAM [facility] - Test 00:00:00 [code = DIABETIC EYE Medical Center EXAM] Future Scheduled [address] Angely es - Test 00:00:00 examination Medical Center (regime/therapy) [code = 455113831] Encounters Start End Encounter Admission Attending Care Care Encounter Source Date/Time Date/Time Type Type Clinicians Facility Department ID 2019-10-04 2019-10-04 Office Rocky BILLINGS [id number] 13:53:57 14:23:57 Visit [facility], AMBULATOR [id number] Pavithra Y [id number] Myra [id number] Results Test Description Test Time Test Comments Results Result Comments Source POCT-GLUCOSE METER 2019-03-15 12:05:00 Test Item Value Reference Range Interpretation Comme nts POC-GLUCOSE METER (2359 Media) (test 140 mg/dL 70-110 H TESTED AT [facility] [address] [facility] code = 1538) [facility] 7[address] 0 POCT-GLUCOSE [id number] 09:37:00 Test Item Value Reference Range Interpretation Comments POC-GLUCOSE METER 133 mg/dL 70-110 H TESTED AT [facility] 6720 (2359 Media) (test code = ASYA R [facility] 1538) [address] BASIC METABOLIC [id number] 06:58:00 Test Item Value Reference Range Interpretation Comments SODIUM (BEAKER) 135 meq/L 136-145 L (test code = 381) POTASSIUM (BEAKER) 3.9 meq/L 3.5-5.1 (test code = 379) CHLORIDE (BEAKER) 105 meq/L 98-107 (test code = 382) CO2 (BEAKER) (test 22 meq/L 22-29 code = 355) BLOOD UREA NITROGEN 27 mg/dL 7-21 H (BEAKER) (test code = 354) CREATININE (BEAKER) 1.61 mg/dL 0.57-1.25 H (test code = 358) GLUCOSE RANDOM 116 mg/dL 70-105 H (BEAKER) (test code = 652) CALCIUM (BEAKER) 9.2 mg/dL 8.4-10.2 (test code = 697) EGFR (BEAKER) (test 50 mL/min/1.73 ESTIMA SAAD GFR IS code = 1092) sq m NOT ACCURATE CREATININE CLEARANCE IN PREDICTING GLOMERULAR FILTRATION RATE . ESTIMATED GFR I S NOT APPLICABLE FOR DIALYSIS PATIEN TS. POCT-GLUCOSE [id number] 21:04:00 Test Item Value Reference Range Interpretation Comments POC-GLUCOSE METER 161 mg/dL 70-110 H TESTED AT [facility] 6720 (BEAKER) (test code = AS[place] 1538) [address] EEG AWAKE AND [id number] 18:24:00Reason for exam:->CEREBROVASCULAR ACCIDENTDate(s) of EE03/14/2019 DATE OF REPORT: 03/14/2019 ACC: [id number] EEG Number: [id number] TestLocation: Inpatient Room Start time: 03/14/2019 09:03 Stop time: 03/14/2019 09:24 ICD-10: R41.82, R55 CPT Code: 84309 HISTORY: 83 y.o. male with hypertension, chronic kidney disease, right carotid stenosis status post right CEA who presented with syncope and altered mental status. MEDICATIONS THAT COULD AFFECT EEG: Amlodipine, Atorvastatin, Carvedilol, Famotidine, Losartan, Tamsulosin TECHNICAL SUMMARY: This is a digital video-EEG recorded with 32 input channels reviewed with bipolar and referential montages using the modified combinatorial system nomenclature. DESCRIPTION OF RECORD: During the maximally alert state a 8.5 Hz posterior dominant rhythm was seen that was symmetric, reactive to eye opening and well regulated. More anteriorly, low voltage frontocentral beta predominated. Drowsiness was characterized by decreased eye blinks, alpha attenuation, increased frontocentral theta, and increased frontocentral delta. Stage 2 sleep was not reached. SIGNIFICANT VIDEO EVENTS: None SIGNIFICANT ELECTROCARDIOGRAM EVENTS: None HV: Hyperventilation was not performed. PH OTIC STIMULATION: Photic stimulation was done from 3-30 Hz; no photic driving was seen; photoparoxysmal responses were absent. IMPRESSION: Normal Awake and Drowsy EEG CLINICAL CORRELATION: An EEGwithout epileptiform discharges does not exclude the possibility of epilepsy. If the clinical suspicion of epilepsy remains, consider additional EEG recordings. Archie Salter MD NeurophysiologyFellow I have reviewed the electroencephalogram and this report and agree with its interpretation. Ceasar Lerner MD Neurophysiology Attending POCT- GLUCOSE [id number] 18:04:00 Test Item Value Reference Range Interpretation Comments POC-GLUCOSE METER 111 mg/dL 70-110 H TESTED AT [place] [address] ([facility]) (test code = [facility] 1538) [id number] POCT-GLUCOSE [id number] 14:11:00 Test Item Value Reference Range Interpretation Comments POC-GLUCOSE METER 113 mg/dL 70-110 H TESTED AT [place] [address] ([facility]) (test code = [facility] 1538) [id number] POCT-GLUCOSE [id number] 08:00:00 Test Item Value Reference Range Interpretation Comments POC-GLUCOSE METER 107 mg/dL 70-110 TESTED AT [place] [address] ([facility]) (test code = [facility] 1538) [address] BASIC METABOLIC [id number] 07:50:00 Test Item Value Reference Range Interpretation Comments SODIUM (BEAKER) 137 meq/L 136-145 (test code = 381) POTASSIUM (BEAKER) 3.8 meq/L 3.5-5.1 (test code = 379) CHLORIDE (BEAKER) 104 meq/L 98-107 (test code = 382) CO2 (BEAKER) (test 25 meq/L 22-29 code = 355) BLOOD UREA NITROGEN 34 mg/dL 7-21 H ([facility]) (test code = 354) CREATININE (BEAKER) 1.90 mg/dL 0.57-1.25 H (test code = 358) GLUCOSE RANDOM 104 mg/dL 70-105 (BEAKER) (test code = 652) CALCIUM (BEAKER) 9.2 mg/dL 8.4-10.2 (test code = 697) EGFR (BEAKER) (test 41 mL/min/1.73 ESTIMA SAAD GFR IS code = 1092) sq m NOT ACCURATE CREATININE CLEARANCE IN PREDICTING GLOMERULAR FILTRATION RATE . ESTIMATED GFR I S NOT APPLICABLE FOR DIALYSIS PATIEN TS. CBC (HEMOGRAM ONLY)2019-03-14 07:24:00 Test Item Value Reference Range Interpretation Comments WHITE BLOOD CELL COUNT (BEAKER) 10.0 K/ L 3.5-10.5 (test code = 775) RED BLOOD CELL COUNT (BEAKER) 3.68 M/ L 4.63-6.08 L (test code = 761) HEMOGLOBIN (BEAKER) (test code = 11.3 GM/DL 13.7-17.5 L 410) HEMATOCRIT (BEAKER) (test code = 33.6 % 40.1-51.0 L 411) MEAN CORPUSCULAR VOLUME (BEAKER) 91.3 fL 79.0-92.2 (test code = 753) MEAN CORPUSCULAR HEMOGLOBIN 30.7 pg 25.7-32.2 (BEAKER) (test code = 751) MEAN CORPUSCULAR HEMOGLOBIN CONC 33.6 GM/DL 32.3-36.5 (BEAKER) (test code = 752) RED CELL DISTRIBUTION WIDTH 13.7 % 11.6-14.4 (BEAKER) (test code = 412) PLATELET COUNT (BEAKER) (test 198 K/CU MM 150-450 code = 756) MEAN PLATELET VOLUME (BEAKER) 10.6 fL 9.4-12.4 (test code = 754) NUCLEATED RED BLOOD CELLS 0 /100 WBC 0-0 (BEAKER) (test code = 413) POCT-GLUCOSE [id number] 21:38:00 Test Item Value Reference Range Interpretation Comments POC-GLUCOSE METER 110 mg/dL 70-110 TESTED AT [facility] 67[address] (BEAKER) (test code = AS[place] 1538) [id number] POCT-GLUCOSE [id number] 17:14:00 Test Item Value Reference Range Interpretation Comments POC-GLUCOSE METER 146 mg/dL 70-110 H TESTED AT [place] [address] ([facility]) (test code = ASYA Modi [facility] 1538) [id number] POCT-GLUCOSE [id number] 12:23:00 Test Item Value Reference Range Interpretation Comments POC-GLUCOSE METER 139 mg/dL 70-110 H TESTED AT [place] [address] ([facility]) (test code = ASYA Modi [facility] 1538) [address] POCT-GLUCOSE [id number] 10:11:00 Test Item Value Reference Range Interpretation Comments POC-GLUCOSE METER 118 mg/dL 70-110 H TESTED AT [place] [address] ([facility]) (test code = ASYA Modi [facility] 1538) [id number] POCT-GLUCOSE [id number] 20:41:00 Test Item Value Reference Range Interpretation Comments POC-GLUCOSE METER 118 mg/dL 70-110 H TESTED AT [place] [address] ([facility]) (test code = ASYA Modi [facility] 1538) [id number] POCT-GLUCOSE [id number] 18:31:00 Test Item Value Reference Range Interpretation Comments POC-GLUCOSE METER 110 mg/dL 70-110 TESTED AT [place] [address] ([facility]) (test code = ASYA Modi [facility] 1538) [id number] POCT-GLUCOSE [id number] 14:25:00 Test Item Value Reference Range Interpretation Comments POC-GLUCOSE METER 101 mg/dL 70-110 TESTED AT [place] [address] ([facility]) (test code = FREDDYAL Ly [facility] 1538) [id number] 12:15:00 Test Item Value Reference Range Interpretation Comments RPR SCREEN ([facility]) (test code = Nonreactive Nonreactive 420) POCT-GLUCOSE [id number] 10:11:00 Test Item Value Reference Range Interpretation Comments POC-GLUCOSE METER 98 mg/dL 70-110 TESTED AT [place] [address] ([facility]) (test code = [facility] Ly [facility] [id number] 1538) BASIC METABOLIC [id number] 06:57:00 Test Item Value Reference Range Interpretation Comments SODIUM (BEAKER) 138 meq/L 136-145 (test code = 381) POTASSIUM (BEAKER) 4.2 meq/L 3.5-5.1 (test code = 379) CHLORIDE (BEAKER) 104 meq/L 98-107 (test code = 382) CO2 (BEAKER) (test 25 meq/L 22-29 code = 355) BLOOD UREA NITROGEN 24 mg/dL 7-21 H (BEAKER) (test code = 354) CREATININE (BEAKER) 1.82 mg/dL 0.57-1.25 H (test code = 358) GLUCOSE RANDOM 104 mg/dL 70-105 (BEAKER) (test code = 652) CALCIUM (BEAKER) 9.9 mg/dL 8.4-10.2 (test code = 697) EGFR (BEAKER) (test 43 mL/min/1.73 ESTIMA SAAD GFR IS code = 1092) sq m NOT ACCURATE CREATININE CLEARANCE IN PREDICTING GLOMERULAR FILTRATION RATE . ESTIMATED GFR I S NOT APPLICABLE FOR DIALYSIS PATIEN TS. CBC (HEMOGRAM ONLY)2019-03-12 06:35:00 Test Item Value Reference Range Interpretation Comments WHITE BLOOD CELL COUNT (BEAKER) 7.9 K/ L 3.5-10.5 (test code = 775) RED BLOOD CELL COUNT (BEAKER) 3.92 M/ L 4.63-6.08 L (test code = 761) HEMOGLOBIN (BEAKER) (test code = 11.8 GM/DL 13.7-17.5 L 410) HEMATOCRIT (BEAKER) (test code = 36.6 % 40.1-51.0 L 411) MEAN CORPUSCULAR VOLUME (BEAKER) 93.4 fL 79.0-92.2 H (test code = 753) MEAN CORPUSCULAR HEMOGLOBIN 30.1 pg 25.7-32.2 (BEAKER) (test code = 751) MEAN CORPUSCULAR HEMOGLOBIN CONC 32.2 GM/DL 32.3-36.5 L (BEAKER) (test code = 752) RED CELL DISTRIBUTION WIDTH 13.6 % 11.6-14.4 (BEAKER) (test code = 412) PLATELET COUNT (BEAKER) (test 214 K/CU MM 150-450 code = 756) MEAN PLATELET VOLUME (BEAKER) 10.6 fL 9.4-12.4 (test code = 754) NUCLEATED RED BLOOD CELLS 0 /100 WBC 0-0 (BEAKER) (test code = 413) POCT-GLUCOSE [id number] 21:33:00 Test Item Value Reference Range Interpretation Comments POC-GLUCOSE METER 91 mg/dL 70-110 TESTED AT [facility] 67[address] (BEAKER) (test code = ASYA Modi [facility] [address] 1538) POCT-GLUCOSE [id number] 17:12:00 Test Item Value Reference Range Interpretation Comments POC-GLUCOSE METER 128 mg/dL 70-110 H TESTED AT [facility] 67[address] (BEAKER) (test code = ASYA Modi [facility] 1538) [address] POCT-GLUCOSE [id number] 17:08:00 Test Item Value Reference Range Interpretation Comments POC-GLUCOSE METER 115 mg/dL 70-110 H TESTED AT [facility] 67[address] (BEAKER) (test code = ASYA Modi [facility] 1538) [address] BASIC METABOLIC [id number] 08:50:00 Test Item Value Reference Range Interpretation Comments SODIUM (BEAKER) 136 meq/L 136-145 (test code = 381) POTASSIUM (BEAKER) 4.3 meq/L 3.5-5.1 Specimen slightly (test code = 379) hemolyzed CHLORIDE (BEAKER) 103 meq/L 98-107 (test code = 382) CO2 (BEAKER) (test 24 meq/L 22-29 code = 355) BLOOD UREA NITROGEN 21 mg/dL 7-21 (BEAKER) (test code = 354) CREATININE (BEAKER) 1.64 mg/dL 0.57-1.25 H Specimen slightly (test code = 358) hemolyzed GLUCOSE RANDOM 113 mg/dL 70-105 H (BEAKER) (test code = 652) CALCIUM (BEAKER) 9.7 mg/dL 8.4-10.2 (test code = 697) EGFR (BEAKER) (test 49 mL/min/1.73 ESTIMA SAAD GFR IS code = 1092) sq m NOT ACCURATE CREATININE CLEARANCE IN PREDICTING GLOMERULAR FILTRATION RATE . ESTIMATED GFR I S NOT APPLICABLE FOR DIALYSIS PATIEN TS. CBC (HEMOGRAM ONLY)2019-03-11 08:36:00 Test Item Value Reference Range Interpretation Comments WHITE BLOOD CELL COUNT (BEAKER) 9.0 K/ L 3.5-10.5 (test code = 775) RED BLOOD CELL COUNT (BEAKER) 4.20 M/ L 4.63-6.08 L (test code = 761) HEMOGLOBIN (BEAKER) (test code = 12.6 GM/DL 13.7-17.5 L 410) HEMATOCRIT (BEAKER) (test code = 39.2 % 40.1-51.0 L 411) MEAN CORPUSCULAR VOLUME (BEAKER) 93.3 fL 79.0-92.2 H (test code = 753) MEAN CORPUSCULAR HEMOGLOBIN 30.0 pg 25.7-32.2 (BEAKER) (test code = 751) MEAN CORPUSCULAR HEMOGLOBIN CONC 32.1 GM/DL 32.3-36.5 L (BEAKER) (test code = 752) RED CELL DISTRIBUTION WIDTH 13.7 % 11.6-14.4 (BEAKER) (test code = 412) PLATELET COUNT (BEAKER) (test 214 K/CU MM 150-450 code = 756) MEAN PLATELET VOLUME (BEAKER) 10.1 fL 9.4-12.4 (test code = 754) NUCLEATED RED BLOOD CELLS 0 /100 WBC 0-0 (BEAKER) (test code = 413) MR, BRAIN, WITHOUT [id number] 06:09:00Reason for exam:- >CEREBROVASCULAR ACCIDENTFINAL REPORT MRI Brain without contrast CLINICAL HISTORY: Dementia, vascular suspectedCEREBROVASCULAR ACCIDENT Technique: MRI of the brain utilizing axial T2, FLAIR, GRE, DWI; sag ittal and coronal T1-weighted images. Comparisons: CT head March 10, 2019 Findings: There is no evidence of acute infarct or hemorrhage. There is no midline shift. There are no extra-axial fluid collections. The craniocervical junction is preserved. Punctate chronic microhemorrhage involving the left cerebellar hemisphere and posterior left temporal lobe. Moderate parenchymal volume loss with temporal lobe predominance. Lateral ventriculomegaly present. Confluent cerebral white matter T2 FLAIR hyperintensities. 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 Chronic ischemic changes of the thalami also noted. The orbits and globes are unremarkable. Mild paranasal sinus mucosal thickening. Diminutive right vertebral artery, and hypoplastic V4 segment flow void, likely hypoplastic. IMPRESSION: No acute infarct. Moderate chronic microangiopathic ischemic changes. Lateral ventriculomegaly likely related to moderate parenchymal atrophy. However, a component of normal pressure hydrocephalus is not excluded by imaging appearance. Small foci of chronic microhemorrhageinvolving the cerebellum and left temporal lobe. Signed: Maximiliano Castañeda MDReport Verified Date/Time: 03/11/2019 06:09:32 TSH/FREE T4 IF [id number] 19:42:00 Test Item Value Reference Range Interpretation Comments THYROID STIMULATING HORMONE 1.98 uIU/mL 0.35-4.94 (BEAKER) (test code = 772) VITAMIN B12 AND [id number] 19:42:00 Test Item Value Reference Range Interpretation Comments VITAMIN B12 (BEAKER) (test code = 243 pg/mL 213-816 774) FOLATE (BEAKER) (test code = 362) 9.3 ng/mL >=7.0 URINALYSIS W/ REFLEX URINE [id number] 19:07:00 Test Item Value Reference Range Interpretation Comments COLOR (BEAKER) (test code = 470) Yellow CLARITY (BEAKER) (test code = 469) Clear SPECIFIC GRAVITY UA (BEAKER) (test 1.016 1.001-1.035 code = 468) PH UA (BEAKER) (test code = 467) 6.5 5.0-8.0 PROTEIN UA (BEAKER) (test code = 50 mg/dL Negative A 464) GLUCOSE UA (BEAKER) (test code = Negative Negative 365) KETONES UA (BEAKER) (test code = Negative Negative 371) BILIRUBIN UA (BEAKER) (test code = Negative Negative 462) BLOOD UA (BEAKER) (test code = 461) Negative Negative NITRITE UA (BEAKER) (test code = Negative Negative 465) LEUKOCYTE ESTERASE UA (BEAKER) Negative Negative (test code = 466) UROBILINOGEN UA (BEAKER) (test code 6.0 mg/dL 0.2-1.0 H = 463) RBC UA (BEAKER) (test code = 519) 0 /HPF WBC UA (BEAKER) (test code = 520) 1 /HPF SQUAMOUS EPITHELIAL (BEAKER) (test 1 /HPF code = 516) HYALINE CASTS (BEAKER) (test code = 2 /LPF 514) SOURCE(BEAKER) (test code = 2795) POCT-GLUCOSE [id number] 19:04:00 Test Item Value Reference Range Interpretation Comments POC-GLUCOSE METER 100 mg/dL 70-110 TESTED AT [facility] 6720 (BEAKER) (test code = [place] 1538) [id number] 14:38:00 Test Item Value Reference Range Interpretation Comments PROTIME (BEAKER) (test code = 13.5 seconds 11.9-14.2 759) INR (BEAKER) (test code = 370) 1.1 <=5.9 PARTIAL THROMBOPLASTIN TIME 24.1 seconds 22.5-36.0 (BEAKER) (test code = 760) Effective 11/09/2018: PT Reference Range ChangeNew: 11.9-14.2 Previous: 11.7- 14.7RECOMMENDED COUMADIN/WARFARIN INR THERAPY RANGESSTANDARD DOSE: 2.0-3.0 Includes: PROPHYLAXIS for venous thrombosis, systemic embolization; TREATMENT for venous thrombosis and/or pulmonary embolus.HIGH RISK: Target INR is2.5-3.5 for patients wiht mechanical heart valves.CBC W/PLT COUNT & AUTO [id number] 14:23:00 Test Item Value Reference Range Interpretation Comments WHITE BLOOD CELL COUNT (BEAKER) 8.3 K/ L 3.5-10.5 (test code = 775) RED BLOOD CELL COUNT (BEAKER) 3.73 M/ L 4.63-6.08 L (test code = 761) HEMOGLOBIN (BEAKER) (test code = 11.3 GM/DL 13.7-17.5 L 410) HEMATOCRIT (BEAKER) (test code = 34.5 % 40.1-51.0 L 411) MEAN CORPUSCULAR VOLUME (BEAKER) 92.5 fL 79.0-92.2 H (test code = 753) MEAN CORPUSCULAR HEMOGLOBIN 30.3 pg 25.7-32.2 (BEAKER) (test code = 751) MEAN CORPUSCULAR HEMOGLOBIN CONC 32.8 GM/DL 32.3-36.5 (BEAKER) (test code = 752) RED CELL DISTRIBUTION WIDTH 13.6 % 11.6-14.4 (BEAKER) (test code = 412) PLATELET COUNT (BEAKER) (test 192 K/CU MM 150-450 code = 756) MEAN PLATELET VOLUME (BEAKER) 10.4 fL 9.4-12.4 (test code = 754) NUCLEATED RED BLOOD CELLS 0 /100 WBC 0-0 (BEAKER) (test code = 413) NEUTROPHILS RELATIVE PERCENT 43 % (BEAKER) (test code = 429) LYMPHOCYTES RELATIVE PERCENT 46 % (BEAKER) (test code = 430) MONOCYTES RELATIVE PERCENT 9 % (BEAKER) (test code = 431) EOSINOPHILS RELATIVE PERCENT 1 % (BEAKER) (test code = 432) BASOPHILS RELATIVE PERCENT 1 % (BEAKER) (test code = 437) NEUTROPHILS ABSOLUTE COUNT 3.57 K/ L 1.78-5.38 (BEAKER) (test code = 670) LYMPHOCYTES ABSOLUTE COUNT 3.84 K/ L 1.32-3.57 H (BEAKER) (test code = 414) MONOCYTES ABSOLUTE COUNT (BEAKER) 0.73 K/ L 0.30-0.82 (test code = 415) EOSINOPHILS ABSOLUTE COUNT 0.10 K/ L 0.04-0.54 (BEAKER) (test code = 416) BASOPHILS ABSOLUTE COUNT (BEAKER) 0.04 K/ L 0.01-0.08 (test code = 417) IMMATURE GRANULOCYTES-RELATIVE 0 % 0-1 PERCENT (BEAKER) (test code = 2801) TROPONIN [id number] 14:13:00 Test Item Value Reference Range Interpretation Comments TROPONIN I (BEAKER) (test code = 0.02 ng/mL 0.00-0.03 397) Troponin I (TnI) levels must be interpreted in the context of the presenting symptoms and the clinical findings. Elevated TnI levels indicate myocardial damage, but are not specific for ischemic heart disease. Elevated TnI levels are seen in patients with other cardiac conditions (including myocarditis and congestive heart failure), and slight TnI elevations occur in patients with other conditions, including sepsis, renal failure, acidosis, acute neurological disease, and persistent tachyarrhythmia.[id number] 14:07:00 Test Item Value Reference Range Interpretation Comments MAGNESIUM (BEAKER) (test code = 2.0 mg/dL 1.6-2.6 627) BASIC METABOLIC [id number] 14:07:00 Test Item Value Reference Range Interpretation Comments SODIUM (BEAKER) 140 meq/L 136-145 (test code = 381) POTASSIUM (BEAKER) 4.2 meq/L 3.5-5.1 (test code = 379) CHLORIDE (BEAKER) 106 meq/L 98-107 (test code = 382) CO2 (BEAKER) (test 29 meq/L 22-29 code = 355) BLOOD UREA NITROGEN 23 mg/dL 7-21 H (BEAKER) (test code = 354) CREATININE (BEAKER) 1.79 mg/dL 0.57-1.25 H (test code = 358) GLUCOSE RANDOM 121 mg/dL 70-105 H (BEAKER) (test code = 652) CALCIUM (BEAKER) 10.0 mg/dL 8.4-10.2 (test code = 697) EGFR (BEAKER) (test 44 mL/min/1.73 ESTIMA SAAD GFR IS code = 1092) sq m NOT ACCURATE CREATININE CLEARANCE IN PREDICTING GLOMERULAR FILTRATION RATE . ESTIMATED GFR I S NOT APPLICABLE FOR DIALYSIS PATIEN TS. RAD, CHEST, 1 VIEW, NON [id number] 14:01:00Reason for exam:->strokeFINAL REPORT Clinical History: stroke Comparison Study: None Findings: The heart and lungs are within normal limits. The pleural spaces are clear. There is no pneumothorax. Degenerative changes are seen. Impression: No active cardiopulmonary disease. Signed: Dean Telloeport Verified Date/Time: 03/10/2019 14:01:41 Reading Location: [facility] Radiology Reading Room [facility], BRAIN/STROKE [id number] 13:28:00Reason for exam:->AMSWhat is the patient's sedation requirement?->No SedationFINAL REPORT CT Head without contrast CLINICAL HISTORY: Decreased alertnessAMS TECHNIQUE: Contiguous axial images through the head without contrast. This exam was performed according to the departmental dose optimization program which includes automated exposure control, adjustment of the mA and/or kV according to the patient size, and/or use of an iterative reconstruction technique. COMPARISON: None FINDINGS: There is no CT evidence of acute infarct. There is no intracranial hemorrhage. There is nonspecific white matter disease. There is generalized parenchymal volume loss with slightly disproportionate ventriculomegaly. There is no midline shift. There are atherosclerotic c alcifications of the intracranial circulation. There are no extra-axial fluid collections. The skullis intact. The paranasal sinuses are well-aerated. IMPRESSION: There is no CT evidence of acute infarct or intracranial hemorrhage. Mild ventriculomegaly, for which clinical correlation for communicating hydrocephalus is recommended. The findings were discussed with the stroke neurologist at 1:30 PM. Signed: Ayesha Abarca MDReport Verified Date/Time: 03/10/2019 13:28:27 Reading Location: [facility] C0[facility] Neuro Reading Room TISSUE EXAM 2019-02-08 17:52:00Surgical Pathology Report Case: [id number] Authorizing Provider: Manan Sims, Collected: 01/31/2019 0829 OrderingLocation: [facility] Received: 01/31/2019 0938 PERIOPERATIVE SERVICES Pathologist: Montana Kaufman MD Specimen: Plaque, right carotid plaque ARTERY, RIGHT CAROTID, ENDARTERECTOMY:CALCIFIC ATHEROSCLEROTIC PLAQUE Signing Pathologist Direct Phone Line: [phone]; [phone] carotid plaque The specimen is received in formalin and consists of a portion of fibrotic, calcified, vasculartissue measuring 3.5 x 1.1 x 0.5 cm. Flag Decorator sections are submitted in one cassette for decalcification. CB/ewPerformedPOCT-GLUCOSE [id number] 17:51:00 Test Item Value Reference Range Interpretation Comments POC-GLUCOSE METER 129 mg/dL 70-110 H TESTED AT [facility] 6720 (2359 Media) (test code = ASYA Modi [facility] 1538) [id number] POCT-GLUCOSE [id number] 08:26:00 Test Item Value Reference Range Interpretation Comments POC-GLUCOSE METER 136 mg/dL 70-110 H TESTED AT [facility] 6720 (2359 Media) (test code = ASYA Modi [facility] 1538) [address] [id number] 06:14:00 Test Item Value Reference Range Interpretation Comments MAGNESIUM (2359 Media) (test code = 2.0 mg/dL 1.6-2.6 627) BASIC METABOLIC [id number] 06:14:00 Test Item Value Reference Range Interpretation Comments SODIUM (BEAKER) 132 meq/L 136-145 L (test code = 381) POTASSIUM (BEAKER) 3.9 meq/L 3.5-5.1 (test code = 379) CHLORIDE (BEAKER) 99 meq/L 98-107 (test code = 382) CO2 (BEAKER) (test 24 meq/L 22-29 code = 355) BLOOD UREA NITROGEN 34 mg/dL 7-21 H (BEAKER) (test code = 354) CREATININE (BEAKER) 1.81 mg/dL 0.57-1.25 H (test code = 358) GLUCOSE RANDOM 138 mg/dL 70-105 H (BEAKER) (test code = 652) CALCIUM (BEAKER) 10.1 mg/dL 8.4-10.2 (test code = 697) EGFR (BEAKER) (test 43 mL/min/1.73 ESTIMA SAAD GFR IS code = 1092) sq m NOT ACCURATE CREATININE CLEARANCE IN PREDICTING GLOMERULAR FILTRATION RATE . ESTIMATED GFR I S NOT APPLICABLE FOR DIALYSIS PATIEN TS. CBC (HEMOGRAM ONLY)2019-02-02 05:58:00 Test Item Value Reference Range Interpretation Comments WHITE BLOOD CELL COUNT (BEAKER) 12.8 K/ L 3.5-10.5 H (test code = 775) RED BLOOD CELL COUNT (BEAKER) 3.73 M/ L 4.63-6.08 L (test code = 761) HEMOGLOBIN (BEAKER) (test code = 11.1 GM/DL 13.7-17.5 L 410) HEMATOCRIT (BEAKER) (test code = 33.9 % 40.1-51.0 L 411) MEAN CORPUSCULAR VOLUME (BEAKER) 90.9 fL 79.0-92.2 (test code = 753) MEAN CORPUSCULAR HEMOGLOBIN 29.8 pg 25.7-32.2 (BEAKER) (test code = 751) MEAN CORPUSCULAR HEMOGLOBIN CONC 32.7 GM/DL 32.3-36.5 (BEAKER) (test code = 752) RED CELL DISTRIBUTION WIDTH 14.0 % 11.6-14.4 (BEAKER) (test code = 412) PLATELET COUNT (BEAKER) (test 160 K/CU MM 150-450 code = 756) MEAN PLATELET VOLUME (BEAKER) 10.3 fL 9.4-12.4 (test code = 754) NUCLEATED RED BLOOD CELLS 0 /100 WBC 0-0 (BEAKER) (test code = 413) POCT-GLUCOSE [id number] 18:44:00 Test Item Value Reference Range Interpretation Comments POC-GLUCOSE METER 148 mg/dL 70-110 H TESTED AT [place] [address] (BEAKER) (test code = ASYA Modi [place] 1538) [id number] POCT-GLUCOSE [id number] 14:58:00 Test Item Value Reference Range Interpretation Comments POC-GLUCOSE METER 138 mg/dL 70-110 H [facility] AT [place] [address] [facility] (test code = ASYA Modi [place] 1538) [address] HEMOGLOBIN [id number] 11:52:00 Test Item Value Reference Range Interpretation Comments HEMOGLOBIN A1C (BEAKER) (test code = 6.4 % 4.3-6.1 H 368) POCT-GLUCOSE [id number] 08:45:00 Test Item Value Reference Range Interpretation Comments POC-GLUCOSE METER 144 mg/dL 70-110 H TESTED AT [place] [address] (BEAKER) (test code = ASYA Modi [place] 1538) [address] [id number] 04:50:00 Test Item Value Reference Range Interpretation Comments PHOSPHORUS (BEAKER) (test code = 5.2 mg/dL 2.3-4.7 H 604) [id number] 04:50:00 Test Item Value Reference Range Interpretation Comments MAGNESIUM (BEAKER) (test code = 2.0 mg/dL 1.6-2.6 627) BASIC METABOLIC [id number] 04:50:00 Test Item Value Reference Range Interpretation Comments SODIUM (BEAKER) 136 meq/L 136-145 (test code = 381) POTASSIUM (BEAKER) 4.7 meq/L 3.5-5.1 (test code = 379) CHLORIDE (BEAKER) 104 meq/L 98-107 (test code = 382) CO2 (BEAKER) (test 24 meq/L 22-29 code = 355) BLOOD UREA NITROGEN 36 mg/dL 7-21 H (BEAKER) (test code = 354) CREATININE (BEAKER) 1.98 mg/dL 0.57-1.25 H (test code = 358) GLUCOSE RANDOM 145 mg/dL 70-105 H (BEAKER) (test code = 652) CALCIUM (BEAKER) 9.5 mg/dL 8.4-10.2 (test code = 697) EGFR (BEAKER) (test 39 mL/min/1.73 ESTIMA SAAD GFR IS code = 1092) sq m NOT ACCURATE CREATININE CLEARANCE IN PREDICTING GLOMERULAR FILTRATION RATE . ESTIMATED GFR I S NOT APPLICABLE FOR DIALYSIS PATIEN TS. CBC (HEMOGRAM ONLY)2019-02-01 04:29:00 Test Item Value Reference Range Interpretation Comments WHITE BLOOD CELL COUNT (BEAKER) 12.4 K/ L 3.5-10.5 H (test code = 775) RED BLOOD CELL COUNT (BEAKER) 3.90 M/ L 4.63-6.08 L (test code = 761) HEMOGLOBIN (BEAKER) (test code = 11.6 GM/DL 13.7-17.5 L 410) HEMATOCRIT (BEAKER) (test code = 35.8 % 40.1-51.0 L 411) MEAN CORPUSCULAR VOLUME (BEAKER) 91.8 fL 79.0-92.2 (test code = 753) MEAN CORPUSCULAR HEMOGLOBIN 29.7 pg 25.7-32.2 (BEAKER) (test code = 751) MEAN CORPUSCULAR HEMOGLOBIN CONC 32.4 GM/DL 32.3-36.5 (BEAKER) (test code = 752) RED CELL DISTRIBUTION WIDTH 14.4 % 11.6-14.4 (BEAKER) (test code = 412) PLATELET COUNT (BEAKER) (test 187 K/CU MM 150-450 code = 756) MEAN PLATELET VOLUME (BEAKER) 9.6 fL 9.4-12.4 (test code = 754) NUCLEATED RED BLOOD CELLS 0 /100 WBC 0-0 (BEAKER) (test code = 413) BLOOD GAS, [id number] 04:27:00 Test Item Value Reference Range Interpretation Comments PH ARTERIAL (BEAKER) (test code = 7.36 7.35-7.45 383) PCO2 ARTERIAL (BEAKER) (test code 45 mmHg 35-45 = 384) PO2 ARTERIAL (BEAKER) (test code 120 mmHg 80-90 H = 385) O2 SATURATION ARTERIAL (BEAKER) 98.3 % 96.0-97.0 H (test code = 386) HCO3 ARTERIAL (BEAKER) (test code 25 mmol/L 21-29 = 388) BASE EXCESS ARTERIAL (BEAKER) -0.9 mmol/L -2.0-3.0 (test code = 387) PATIENT TEMPERATURE (BEAKER) 36.6 C (test code = 1818) FIO2 (BEAKER) (test code = 1819) 28.0 % CALCIUM, [id number] 04:26:00 Test Item Value Reference Range Interpretation Comments CALCIUM IONIZED (BEAKER) (test 1.26 mmol/L 1.12-1.27 code = 698) PH, BLOOD (BEAKER) (test code = 7.35 1810) POCT-GLUCOSE [id number] 00:57:00 Test Item Value Reference Range Interpretation Comments POC-GLUCOSE METER 110 mg/dL 70-110 TESTED AT [place] [address] ([facility] (test code = [facility] 1538) [id number] POCT-GLUCOSE [id number] 18:45:00 Test Item Value Reference Range Interpretation Comments POC-GLUCOSE METER 122 mg/dL 70-110 H TESTED AT [place] [address] ([facility] (test code = [facility] 1538) [address] [id number] 11:33:00 Test Item Value Reference Range Interpretation Comments PHOSPHORUS (BEAKER) (test code = 3.6 mg/dL 2.3-4.7 604) [id number] 11:33:00 Test Item Value Reference Range Interpretation Comments MAGNESIUM (BEAKER) (test code = 2.0 mg/dL 1.6-2.6 627) BASIC METABOLIC [id number] 11:33:00 Test Item Value Reference Range Interpretation Comments SODIUM (BEAKER) 137 meq/L 136-145 (test code = 381) POTASSIUM (BEAKER) 4.1 meq/L 3.5-5.1 (test code = 379) CHLORIDE (BEAKER) 105 meq/L 98-107 (test code = 382) CO2 (BEAKER) (test 26 meq/L 22-29 code = 355) BLOOD UREA NITROGEN 33 mg/dL 7-21 H (BEAKER) (test code = 354) CREATININE (BEAKER) 1.81 mg/dL 0.57-1.25 H (test code = 358) GLUCOSE RANDOM 148 mg/dL 70-105 H (BEAKER) (test code = 652) CALCIUM (BEAKER) 9.5 mg/dL 8.4-10.2 (test code = 697) EGFR (BEAKER) (test 43 mL/min/1.73 ESTIMA SAAD GFR IS code = 1092) sq m NOT ACCURATE CREATININE CLEARANCE IN PREDICTING GLOMERULAR FILTRATION RATE . ESTIMATED GFR I S NOT APPLICABLE FOR DIALYSIS PATIEN TS. HEPATIC FUNCTION [id number] 11:33:00 Test Item Value Reference Range Interpretation Comments TOTAL PROTEIN (BEAKER) (test code = 7.7 gm/dL 6.0-8.3 770) ALBUMIN (BEAKER) (test code = 1145) 4.1 g/dL 3.5-5.0 BILIRUBIN TOTAL (BEAKER) (test code 1.1 mg/dL 0.2-1.2 = 377) BILIRUBIN DIRECT (BEAKER) (test 0.5 mg/dL 0.1-0.5 code = 706) ALKALINE PHOSPHATASE (BEAKER) (test 76 U/L 40-150 code = 346) AST (SGOT) (BEAKER) (test code = 18 U/L 5-34 353) ALT (SGPT) (BEAKER) (test code = 13 U/L 6-55 347) [id number] 11:03:00 Test Item Value Reference Range Interpretation Comments PROTIME (BEAKER) (test code = 14.7 seconds 11.9-14.2 H 759) INR (BEAKER) (test code = 370) 1.2 <=5.9 PARTIAL THROMBOPLASTIN TIME 29.7 seconds 22.5-36.0 (BEAKER) (test code = 760) Effective 11/09/2018: PT Reference Range ChangeNew: 11.9-14.2 Previous: 11.7- 14.7RECOMMENDED COUMADIN/WARFARIN INR THERAPY RANGESSTANDARD DOSE: 2.0-3.0 Includes: PROPHYLAXIS for venous thrombosis, systemic embolization; TREATMENT for venous thrombosis and/or pulmonary embolus.HIGH RISK: Target INR is2.5-3.5 for patients wiht mechanical heart valves.CBC (HEMOGRAM ONLY)2019-01-31 10:55:00 Test Item Value Reference Range Interpretation Comments WHITE BLOOD CELL COUNT (BEAKER) 11.7 K/ L 3.5-10.5 H (test code = 775) RED BLOOD CELL COUNT (BEAKER) 4.01 M/ L 4.63-6.08 L (test code = 761) HEMOGLOBIN (BEAKER) (test code = 12.0 GM/DL 13.7-17.5 L 410) HEMATOCRIT (BEAKER) (test code = 36.6 % 40.1-51.0 L 411) MEAN CORPUSCULAR VOLUME (BEAKER) 91.3 fL 79.0-92.2 (test code = 753) MEAN CORPUSCULAR HEMOGLOBIN 29.9 pg 25.7-32.2 (BEAKER) (test code = 751) MEAN CORPUSCULAR HEMOGLOBIN CONC 32.8 GM/DL 32.3-36.5 (BEAKER) (test code = 752) RED CELL DISTRIBUTION WIDTH 13.9 % 11.6-14.4 (BEAKER) (test code = 412) PLATELET COUNT (BEAKER) (test 193 K/CU MM 150-450 code = 756) MEAN PLATELET VOLUME (BEAKER) 9.5 fL 9.4-12.4 (test code = 754) NUCLEATED RED BLOOD CELLS 0 /100 WBC 0-0 (BEAKER) (test code = 413) BLOOD GAS, [id number] 10:50:00 Test Item Value Reference Range Interpretation Comments PH ARTERIAL (BEAKER) (test code = 7.37 7.35-7.45 383) PCO2 ARTERIAL (BEAKER) (test code 42 mmHg 35-45 = 384) PO2 ARTERIAL (BEAKER) (test code 106 mmHg 80-90 H = 385) O2 SATURATION ARTERIAL (BEAKER) 97.8 % 96.0-97.0 H (test code = 386) HCO3 ARTERIAL (BEAKER) (test code 24 mmol/L 21-29 = 388) BASE EXCESS ARTERIAL (BEAKER) -1.7 mmol/L -2.0-3.0 (test code = 387) PATIENT TEMPERATURE (BEAKER) 36.5 C (test code = 1818) FIO2 (BEAKER) (test code = 1819) 28.0 % GLUCOSE-STAT [id number] 10:50:00 Test Item Value Reference Range Interpretation Comments GLUCOSE RANDOM (BEAKER) (test code 146 mg/dL 70-110 H = 652) HGB/HCT (H&H) - STAT [id number] 10:50:00 Test Item Value Reference Range Interpretation Comments HEMOGLOBIN (BEAKER) (test code = 12.6 g/dL 13.0-16.8 L 410) HEMATOCRIT (BEAKER) (test code = 37.0 % 40.0-50.0 L 411) CALCIUM, [id number] 10:50:00 Test Item Value Reference Range Interpretation Comments CALCIUM IONIZED (BEAKER) (test 1.23 mmol/L 1.12-1.27 code = 698) PH, BLOOD (BEAKER) (test code = 7.36 1810) SODIUM NA-STAT [id number] 10:49:00 Test Item Value Reference Range Interpretation Comments SODIUM (BEAKER) (test code = 381) 138 meq/L 135-148 POTASSIUM-STAT [id number] 10:49:00 Test Item Value Reference Range Interpretation Comments POTASSIUM (BEAKER) (test code = 4.2 meq/L 3.6-5.5 379) POCT-GLUCOSE [id number] 06:30:00 Test Item Value Reference Range Interpretation Comments POC-GLUCOSE METER 125 mg/dL 70-110 H TESTED AT [facility] 6720 (BEAKER) (test code = AS[place] 1538) [address] CBC W/PLT COUNT & AUTO [id number] 15:40:00 Test Item Value Reference Range Interpretation Comments WHITE BLOOD CELL COUNT (BEAKER) 10.6 K/ L 3.5-10.5 H (test code = 775) RED BLOOD CELL COUNT (BEAKER) 4.18 M/ L 4.63-6.08 L (test code = 761) HEMOGLOBIN (BEAKER) (test code = 12.6 GM/DL 13.7-17.5 L 410) HEMATOCRIT (BEAKER) (test code = 38.3 % 40.1-51.0 L 411) MEAN CORPUSCULAR VOLUME (BEAKER) 91.6 fL 79.0-92.2 (test code = 753) MEAN CORPUSCULAR HEMOGLOBIN 30.1 pg 25.7-32.2 (BEAKER) (test code = 751) MEAN CORPUSCULAR HEMOGLOBIN CONC 32.9 GM/DL 32.3-36.5 (BEAKER) (test code = 752) RED CELL DISTRIBUTION WIDTH 14.0 % 11.6-14.4 (BEAKER) (test code = 412) PLATELET COUNT (BEAKER) (test 214 K/CU MM 150-450 code = 756) MEAN PLATELET VOLUME (BEAKER) 9.2 fL 9.4-12.4 L (test code = 754) NUCLEATED RED BLOOD CELLS 0 /100 WBC 0-0 (BEAKER) (test code = 413) (CELLAVISION MANUAL DIFF)2019-01-30 15:40:00 Test Item Value Reference Range Interpretation Comments NEUTROPHILS - REL 30 % (CELLAVISION)(BEAKER) (test code = 2816) LYMPHOCYTES - REL 58 % (CELLAVISION)(BEAKER) (test code = 2817) MONOCYTES - REL 4 % (CELLAVISION)(BEAKER) (test code = 2818) EOSINOPHILS - REL 1 % (CELLAVISION)(BEAKER) (test code = 2819) BASOPHILS - REL 2 % (CELLAVISION)(BEAKER) (test code = 2820) ATYPICAL LYMPHOCYTES - REL 5 % 0-0 H (CELLAVISION)(BEAKER) (test code = 2829) NEUTROPHILS - ABS 3.18 K/ul 1.78-5.38 (CELLAVISION)(BEAKER) (test code = 2830) LYMPHOCYTES - ABS 6.15 K/ul 1.32-3.57 H (CELLAVISION)(BEAKER) (test code = 2831) MONOCYTES - ABS 0.42 K/uL 0.30-0.82 (CELLAVISION)(BEAKER) (test code = 2832) EOSINOPHILS - ABS 0.11 K/uL 0.04-0.54 (CELLAVISION)(BEAKER) (test code = 2834) BASOPHILS - ABS 0.21 K/uL 0.01-0.08 H (CELLAVISION)(BEAKER) (test code = 2835) ATYPICAL LYMPHOCYTES - ABS 0.53 K/uL 0.00-0.00 H (CELLAVISION)(BEAKER) (test code = 2858) TOTAL COUNTED (BEAKER) (test code 100 = 1351) PLT MORPHOLOGY (BEAKER) (test Normal code = 486) SMUDGE CELLS (BEAKER) (test code Present = 1371) POLYCHROMATOPHILLIC RBCS(BEAKER) 3+ many (test code = 478) ANISOCYTOSIS (BEAKER) (test code 1+ few = 961) MICROCYTES (BEAKER) (test code = 1+ few 965) POIKILOCYTES (BEAKER) (test code 2+ moderate = 966) PLATELET CONCENTRATION Adequate (CELLAVISION)(BEAKER) (test code = 3438) Received comment: User comments: Slide comments:BASIC METABOLIC [id number] 13:49:00 Test Item Value Reference Range Interpretation Comments SODIUM (BEAKER) 138 meq/L 136-145 (test code = 381) POTASSIUM (BEAKER) 4.8 meq/L 3.5-5.1 (test code = 379) CHLORIDE (BEAKER) 104 meq/L 98-107 (test code = 382) CO2 (BEAKER) (test 27 meq/L 22-29 code = 355) BLOOD UREA NITROGEN 36 mg/dL 7-21 H (BEAKER) (test code = 354) CREATININE (BEAKER) 1.96 mg/dL 0.57-1.25 H (test code = 358) GLUCOSE RANDOM 78 mg/dL 70-105 (BEAKER) (test code = 652) CALCIUM (BEAKER) 9.9 mg/dL 8.4-10.2 (test code = 697) EGFR (BEAKER) (test 40 mL/min/1.73 ESTIMA SAAD GFR IS code = 1092) sq m NOT ACCURATE CREATININE CLEARANCE IN PREDICTING GLOMERULAR FILTRATION RATE . ESTIMATED GFR I S NOT APPLICABLE FOR DIALYSIS PATIEN TS. Specimen slightly [id number] 13:46:00 Test Item Value Reference Range Interpretation Comments PARTIAL THROMBOPLASTIN TIME 27.1 seconds 22.5-36.0 (BEAKER) (test code = 760) PROTHROMBIN [id number] 13:45:00 Test Item Value Reference Range Interpretation Comments PROTIME (BEAKER) (test code = 13.4 seconds 11.9-14.2 759) INR (BEAKER) (test code = 370) 1.1 <=5.9 Effective 11/09/2018: PT Reference Range ChangeNew: 11.9-14.2 Previous: 11.7- 14.7RECOMMENDED COUMADIN/WARFARIN INR THERAPY RANGESSTANDARD DOSE: 2.0-3.0 Includes: PROPHYLAXIS for venous thrombosis, systemic embolization; TREATMENT for venous thrombosis and/or pulmonary embolus.HIGH RISK: Target INR is2.5-3.5 for patients wiht mechanical heart valves.
--- NOTE | 2020-07-03 16:55 | RAD REPORT ---
EXAM DESCRIPTION: CT - Head Brain Wo Cont - 07/03/2020 4:45 pm CLINICAL HISTORY: CONFUSED Headache, drowsiness COMPARISON: Chest Single View dated 01/10/2019 TECHNIQUE: All CT scans are performed using dose optimization technique as appropriate and may inclu de automated exposure control or mA/KV adjustment according to patient size. FINDINGS: The exam is degraded by patient motion artifact. There is significant brain atrophy and vo lume loss.Moderate periventricular and deep white matter chronic microvascular ischemic changes.No gr oss midline shift. There is increased density along the falx noted which probably is related to motion artifact. No defi nitive bleed seen. Particular system is prominent likely related to atrophy changes. The paranasal sinuses and mastoids are clear. The calvarium is intact. IMPRESSION: Examination is limited by motion artifact. Within this limitation no gross acute abnorma lity is suspected. However, if patient symptomology persists or progresses repeat CT head or MRI bra in would be recommended.
--- NOTE | 2020-07-03 17:14 | RAD REPORT ---
EXAM DESCRIPTION: RAD - Chest Single View - 07/03/2020 5:08 pm CLINICAL HISTORY: COUGH Chest pain. COMPARISON: Chest Single View dated 01/10/2019; Chest Single View dated 01/09/2019; Chest Pa And Lat ( 2 Views) dated 01/07/2018; Chest Pa And Lat (2 Views) dated 03/26/2017 FINDINGS: Portable technique limits examination quality. The lungs are grossly clear. The heart is upper limit normal in size. No displaced fractures. IMPRESSION: No acute intrathoracic process suspected.
[2020-07-03 17:41] LABS: Absolute Lymphocytes (CBC) 2.5 K/uL (0.7-4.9); Basophils % 0.2 % (0-1.3); Hematocrit 37.7 % (39.6-49.0); Lymphocytes % 30.3 % (15.3-44.8); MPV 8.5 fL (7.6-11.3); RBC Red Blood Cell Count 4.27 M/uL (4.33-5.43)
[2020-07-03 18:04] LABS: Potassium 4.1 mmol/L (3.5-5.1)
--- NOTE | 2020-07-03 18:57 | ER ---
Nurse's Notes [facility] Name: Cliff Aguilar Age: 85 yrs Sex: Male : 1935 Arrival Date: 07/03/2020 Time: 16:16 Bed 19 Private MD: Diagnosis: Dehydration;Fever of other and unknown origin;Weakness Presentation: 07/03 16:16 Chief complaint: EMS states: called out for AMS, pt A\T\Ox2, BGL 106, on scene BP 94/52, em no symptoms of covid or fever. Coronavirus screen: Client denies travel out of the [place] in the last 14 days. Ebola Screen: Patient negative for fever greater than or equal to 101.5 degrees Fahrenheit, and additional compatible Ebola Virus Disease symptoms Patient denies exposure to infectious person. Patient denies travel to an Ebola-affected area in the 21 days before illness onset. No symptoms or risks identified at this time. Initial Sepsis Screen: Does the patient meet any 2 criteria? No. Patient's initial sepsis screen is negative. Does the patient have a suspected source of infection? No. Patient's initial sepsis screen is negative. Risk Assessment: Do you want to hurt yourself or someone else? Patient reports no desire to harm self or others. Onset of symptoms was July 03, 2020. 16:16 Method Of Arrival: EMS: [facility] em 16:16 Acuity: SHA 3 em Historical: - Allergies: 16:19 No Known Allergies; em - PMHx: 16:19 BPH; Diabetes - NIDDM; GERD; High Cholesterol; Hypertension; em 19:53 Dementia; rr5 - PSHx: 16:19 Knee surgery; em - Immunization history:: Adult Immunizations unknown. - Social history:: Smoking status: unknown. - Family history:: not pertinent. - Hospitalizations: : No recent hospitalization is reported. Screenin:19 Abuse screen: Denies threats or abuse. Nutritional screening: No deficits noted. em Tuberculosis screening: No symptoms or risk factors identified. Fall Risk None identified. Assessment: 16:16 General: Appears in no apparent distress. comfortable, Behavior is calm, cooperative, em appropriate for age. Pain: Denies pain. Neuro: Level of Consciousness is awake, alert, obeys commands, Oriented to person, place. Cardiovascular: Capillary refill < 3 seconds Patient's skin is warm and dry. Respiratory: Airway is patent Respiratory effort is even, unlabored, Respiratory pattern is regular, symmetrical. Derm: Skin is intact, is fragile, is thin, Skin is pink, warm \T\ dry. Musculoskeletal: Capillary refill < 3 seconds, Range of motion: intact in all extremities. 17:43 Reassessment: Patient appears in no apparent distress at this time. Patient is em alert/active/playful, equal unlabored respirations, skin warm/dry/pink. 18:20 Reassessment: pt unable to void, attempted once in urinal, provider notified, received em VO for straight cath. x 1. 19:40 General: Appears in no apparent distress. comfortable, Behavior is calm, cooperative. rr5 Neuro: Level of Consciousness is awake, alert, confused, Oriented to person. Cardiovascular: Capillary refill < 3 seconds Patient's skin is warm and dry. Respiratory: Airway is patent Respiratory effort is even, unlabored, Respiratory pattern is regular, symmetrical. GI: No signs and/or symptoms were reported involving the gastrointestinal system. : No signs and/or symptoms were reported regarding the genitourinary system. EENT: No signs and/or symptoms were reported regarding the EENT system. Derm: Skin is intact, Skin temperature is warm. Musculoskeletal: Capillary refill < 3 seconds. 19:51 Reassessment: [id number] daughter. 5 19:51 Reassessment: Patient appears in no apparent distress at this time. Patient and/or rr5 family updated on plan of care and expected duration. Pain level reassessed. daughter updated on the phone. 20:30 Reassessment: Patient appears in no apparent distress at this time. No changes from 5 previously documented assessment. 21:10 Reassessment: Patient appears in no apparent distress at this time. awaiting for room rr5 assignment, calm, obeys command, not getting out of bed. 21:46 Reassessment: Patient appears in no apparent distress at this time. for transfer to [facility] room 401. awake laertvital signs taken and recorded. Vital Signs: 16:16 BP 141 / 64; Pulse 67; Resp 14; Temp 99.6; Pulse Ox 100% ; Pain 0/10; em 17:30 BP 128 / 68; Pulse 68; Resp 16; Pulse Ox 100% on R/A; em 18:52 BP 141 / 74; Pulse 66; Resp 18; Pulse Ox 99% on R/A; Pain 0/10; em 19:41 BP 140 / 79; Pulse 60; Resp 16; Temp 98; Pulse Ox 98% ; rr5 20:30 BP 135 / 62; Pulse 62; Resp 17; Pulse Ox 98% ; rr5 21:30 BP 137 / 74; Pulse 65; Resp 19; Temp 98.2; Pulse Ox 99% ; rr5 [place] Coma Score: 19:41 Eye Response: spontaneous(4). Verbal Response: confused(4). Motor Response: obeys rr5 commands(6). Total: 14. 20:30 Eye Response: spontaneous(4). Verbal Response: confused(4). Motor Response: obeys rr5 commands(6). Total: 14. 21:30 Eye Response: spontaneous(4). Verbal Response: confused(4). Motor Response: obeys rr5 commands(6). Total: 14. ED Course: 16:16 Patient arrived in ED. em 16:16 Maintain EMS IV. Dressing intact. Good blood return noted. Site clean \T\ dry. Gauge \T\ em site: 20 RAC. 16:18 Triage completed. em 16:18 Pawel Ngo MD is Attending Physician. rn 16:19 Arm band placed on. em 16:19 Patient has correct armband on for positive identification. Placed in gown. Bed in low em position. Call light in reach. Side rails up X2. bus driver/monitor on. Pulse ox on. NIBP on. 16:28 Víctor Lawrence, RN is Primary Nurse. em 16:29 Warm blanket given. Verbal reassurance given. jp3 16:29 Patient maintains SpO2 saturation greater than 95% on room air. jp3 16:46 CT Head Brain wo Cont In Process Unspecified. EDMS 17:09 XRAY Chest (1 view) In Process Unspecified. EDMS 18:30 Straight cath inserted, using sterile technique, 18 Fr. Specimen obtained. Returned em clear yellow urine. Patient tolerated well. 18:35 Urine collected: clean catch specimen, clear. em 18:55 Festus Vences MD is Hospitalizing Provider. rn 21:30 No provider procedures requiring assistance completed. Patient admitted, IV remains in rr5 place. intact, No redness/swelling at site. Administered Medications: 17:07 Drug: NS 0.9% 500 ml Route: IV; Rate: bolus; Site: right antecubital; em 17:47 Follow up: IV Status: Completed infusion; IV Intake: 500ml em 19:28 Drug: Rocephin 1 grams Route: IV; Rate: calculated rate; Site: right antecubital; rr5 20:00 Follow up: Response: No adverse reaction; IV Status: Completed infusion; IV Intake: [id number] Intake: 17:47 IV: 500ml; Total: 500ml. em 20:00 IV: 10ml; Total: 510ml. rr5 Outcome: 18:56 Decision to Hospitalize by Provider. rn 21:30 Admitted to Tele accompanied by tech, via stretcher, room 401, with chart, Report rr5 called to elvi 21:30 Condition: stable 21:30 Instructed on the need for admit. 22:24 Patient left the ED. rr5 Signatures: Dispatcher [employer] Víctor Hampton RN RN Pawel Ngo MD MD rn Pisarski, Jacob 3 Jarrod Troncoso RN RN rr5 Corrections: (The following items were deleted from the chart) 21:44 21:30 Admitted to Tele accompanied by tech, via stretcher, room 401, rr5 rr5
--- NOTE | 2020-07-03 18:57 | EDPHYS ---
Physician Documentation [facility] Name: Cliff Aguilar Age: 85 yrs Sex: Male : 1935 Arrival Date: 07/03/2020 Time: 16:16 Bed 19 Private MD: ED Physician Pawel Ngo HPI: 07/03 16:37 This 85 yrs old Black Male presents to ER via EMS with complaints of Altered Mental rn Status. 16:37 The patient presents with decreased mental status. Onset: The symptoms/episode rn began/occurred at an unknown time. Possible causes: unknown. Current symptoms: In the emergency department the patient's symptoms have improved. It is unknown whether or not the patient has had similar symptoms in the past. The patient has not recently seen a physician. Per EMS, 911 called for AMS, patient cooperative and joking, denies any problems. No fall. Reports cough 2 days ago. No fever. No abd pain/vomiting/diarrhea. States eating and drinking fine. . Historical: - Allergies: 16:19 No Known Allergies; em - PMHx: 16:19 BPH; Diabetes - NIDDM; GERD; High Cholesterol; Hypertension; em 19:53 Dementia; rr5 - PSHx: 16:19 Knee surgery; em - Immunization history:: Adult Immunizations unknown. - Social history:: Smoking status: unknown. - Family history:: not pertinent. - Hospitalizations: : No recent hospitalization is reported. ROS: 16:37 Constitutional: Negative for fever, chills, and weight loss, Eyes: Negative for injury, rn pain, redness, and discharge, Neck: Negative for injury, pain, and swelling, Cardiovascular: Negative for chest pain, palpitations, and edema, Respiratory: Negative for shortness of breath, cough, wheezing, and pleuritic chest pain, Abdomen/GI: Negative for abdominal pain, nausea, vomiting, diarrhea, and constipation, Back: Negative for injury and pain, MS/Extremity: Negative for injury and deformity, Skin: Negative for injury, rash, and discoloration, Neuro: Negative for headache, weakness, numbness, tingling, and seizure. Exam: 16:37 Constitutional: This is a well developed, well nourished patient who is awake, alert rn Head/Face: Normocephalic, atraumatic. Cardiovascular: Regular rate and rhythm. No pulse deficits. Respiratory: No increased work of breathing, no retractions or nasal flaring. Abdomen/GI: soft, non-tender Skin: Warm, dry MS/ Extremity: Pulses equal, no cyanosis. Neuro: Awake and alert, GCS 15, oriented to person and place. Moves all 4 ext, sensation grossly intact. Vital Signs: 16:16 BP 141 / 64; Pulse 67; Resp 14; Temp 99.6; Pulse Ox 100% ; Pain 0/10; em 17:30 BP 128 / 68; Pulse 68; Resp 16; Pulse Ox 100% on R/A; em 18:52 BP 141 / 74; Pulse 66; Resp 18; Pulse Ox 99% on R/A; Pain 0/10; em 19:41 BP 140 / 79; Pulse 60; Resp 16; Temp 98; Pulse Ox 98% ; rr5 20:30 BP 135 / 62; Pulse 62; Resp 17; Pulse Ox 98% ; rr5 21:30 BP 137 / 74; Pulse 65; Resp 19; Temp 98.2; Pulse Ox 99% ; rr5 [place] Coma Score: 19:41 Eye Response: spontaneous(4). Verbal Response: confused(4). Motor Response: obeys rr5 commands(6). Total: 14. 20:30 Eye Response: spontaneous(4). Verbal Response: confused(4). Motor Response: obeys rr5 commands(6). Total: 14. 21:30 Eye Response: spontaneous(4). Verbal Response: confused(4). Motor Response: obeys rr5 commands(6). Total: 14. MDM: 16:18 Patient medically screened. rn 18:52 Differential Diagnosis: pneumonia, UTI, volume depletion. Differential Diagnosis: rn electrolyte abnormality. Data reviewed: vital signs, nurses notes. Data reviewed: lab test result(s), EKG, radiologic studies, plain films, and as a result, I will admit patient. Counseling: I had a detailed discussion with the patient and/or guardian regarding: the historical points, exam findings, and any diagnostic results supporting the discharge/admit diagnosis, lab results, radiology results, the need for further work-up and treatment in the hospital. Admission orders: after a detailed discussion of the patient's condition and case, the admit orders are written by me. ED course: Spoke with family member, seems called 911 for hypotension, not so much confusion, does not seem confued here, but hypotension and low grade temperature concerning given no source of infection found yet, COVID pending, spoke with Dr. Vences, will admit for observation.. 07/03 16:26 Order name: CBC with Diff; Complete Time: 18:17 rn 07/03 16:26 Order name: Basic Metabolic Panel; Complete Time: 18:17 rn 07/03 16:26 Order name: Urine Culture rn 07/03 16:26 Order name: Urine Microscopic Only; Complete Time: 19:14 rn 07/03 16:26 Order name: Procalcitonin; Complete Time: 19:14 rn 07/03 16:26 Order name: XRAY Chest (1 view); Complete Time: 17:16 rn 07/03 16:26 Order name: Blood Culture Adult (2) rn 07/03 16:26 Order name: CT Head Brain wo Cont; Complete Time: 17:16 rn 07/03 16:37 Order name: Lactate; Complete Time: 18:40 07/03 18:52 Order name: Urine Dipstick--Ancillary (enter results); Complete Time: 19:14 07/03 19:28 Order name: SARS-COV-2 RT PCR EDIA 07/03 16:26 Order name: IV Start; Complete Time: 16:37 rn 07/03 16:26 Order name: Urine Dipstick-Ancillary (obtain specimen); Complete Time: 19:06 rn 07/03 16:26 Order name: EKG; Complete Time: 16:27 rn 07/03 16:26 Order name: EKG - Nurse/Tech; Complete Time: 19:06 rn Administered Medications: 17:07 Drug: NS 0.9% 500 ml Route: IV; Rate: bolus; Site: right antecubital; em 17:47 Follow up: IV Status: Completed infusion; IV Intake: 500ml em 19:28 Drug: Rocephin 1 grams Route: IV; Rate: calculated rate; Site: right antecubital; rr5 20:00 Follow up: Response: No adverse reaction; IV Status: Completed infusion; IV Intake: [id number] Disposition: 07/03/20 18:56 Hospitalization ordered by Festus Vences for Observation. Preliminary diagnosis are Dehydration, Fever of other and unknown origin, Weakness. - Bed requested for Telemetry/MedSurg (observation). - Status is Observation. rr5 - Condition is Stable. - Problem is new. - Symptoms have improved. Signatures: Dispatcher [employer] Whitney Ochoa RN RN dw Munoz, Edgar, RN Pawel Christina MD MD rn Roque, Raymond, RN RN rr5 Corrections: (The following items were deleted from the chart) 18:29 16:27 CORONAVIRUS+MR.LAB.BRZ ordered. [facility] 20:09 18:56 Hospitalization Ordered by Festus Vences MD for Observation. Preliminary diagnosis is Dehydration; Fever of other and unknown origin; Weakness. Bed requested for Telemetry/MedSurg (observation). Status is Observation. Condition is Stable. Problem is new. Symptoms have improved. rn 22:24 20:09 07/03/2020 18:56 Hospitalization Ordered by Festus Vences MD for Observation. rr5 Preliminary diagnosis is Dehydration; Fever of other and unknown origin; Weakness. Bed requested for Telemetry/MedSurg (observation). Status is Observation. Condition is Stable. Problem is new. Symptoms have improved. dw
[2020-07-03 19:05] LABS: Urine Blood 1+ (NEG); Urine Glucose NEGATIVE (NEG); Urine Protein 2+ (NEG); Urine Specific Gravity 1.025 (1.005-1.030)
[2020-07-03 19:13] LABS: Urine Amorphous Sediment 2+ /HPF (NONE SEEN); Urine Bacteria >50 /HPF (NONE SEEN); Urine Mucus 2+ /HPF (NONE SEEN)
[2020-07-03] MEDS ORDERED: CEFTRIAXONE/SWI 1gm 1 GM/10 ML SYR ONE (19:39)
[2020-07-04] MEDS: NA CHLORIDE 0.9% 1,000 ML IV SCH ×2 (04:24→13:36)
[2020-07-04 04:30] LABS: Absolute Lymphocytes (CBC) 2.1 K/uL (0.7-4.9); Basophils % 0.2 % (0-1.3); Hematocrit 36.4 % (39.6-49.0); Lymphocytes % 26.9 % (15.3-44.8); MPV 8.7 fL (7.6-11.3); RBC Red Blood Cell Count 4.13 M/uL (4.33-5.43)
[2020-07-04 04:47] LABS: Potassium 4.2 mmol/L (3.5-5.1)
[2020-07-04 08:43] LABS: C-Reactive Protein 99.3 mg/L (<3.00); Ferritin 208.8 ng/mL (26-388)
[2020-07-04] MEDS: carvediloL 12.5 MG TAB PO SCH (14:09)
[2020-07-04] MEDS: CEFTRIAXONE/SWI 2gm 2 GM/20 ML SYR IVP SCH (16:04)
--- NOTE | 2020-07-04 18:24 | P.HP ---
Certification for Inpatient Patient admitted to: Inpatient With expected LOS: >2 Midnights Practitioner: I am a practitioner with admitting privileges, knowledge of patient current condition, hospital course, and medical plan of care. Services: Services provided to patient in accordance with Admission requirements found in Title 42 Section 412.3 of the Code of Federal Regulations Patient History Date of Service: 07/04/20 Reason for admission: Altered mental status, weakness, UTI History of Present Illness: 85yo M, PMH: HTN, DM 2, GERD, dementia was brought into the ED due to altered mental status and weakness. Family reports the patient has not been acting himself lately, was noted to be hypotensive at home 90s/60s. They report he has been complaining of a headache behind his right eye intermittently over the past few days. Family were concerned so they brought the patient in. Workup in ED notable for elevated creatinine at 2.27, elevated pro calcitonin 1.29, UA suggestive of urinary tract infection, COVID +. No leukocytosis Patient is alert and oriented himself only, unable to provide any history. History obtained from patient's daughter. Daughter reports that the patient has some dementia but mostly has a " sharp mind". Spoke with patient's PCP, reports patient's cognitive function and it has been slowly declining over the past year or so as well. Allergies No Known Allergies Allergy (Verified 07/03/20 22:36) Home Medications: Amlodipine [Norvasc] 10 mg PO DAILY 07/04/20 Carvedilol [Coreg] 12.5 mg PO DAILY 07/04/20 Chlorthalidone [Hygroton 25mg Tab] 25 mg PO DAILY 07/04/20 Clopidogrel Bisulfate [Plavix] 75 mg PO DAILY 07/04/20 Glipizide [Glipizide ER] 5 mg PO BID 07/04/20 Lovastatin 20 mg PO DAILY 07/04/20 Quetiapine Fumarate [Seroquel] 25 mg PO BID 07/04/20 Tamsulosin [Flomax] 0.4 mg PO BEDTIME 07/04/20 - Past Medical/Surgical History Has patient received pneumonia vaccine in the past: No Diabetic: Yes -: HTN -: DM Type 2 -: GERD -: HYPERLIPIDEMIA -: BPH -: KIDNEY PROBLEMS -: dementia -: [place] -: APPENDECTOMY - Family History Brother -: Heart disease, Hypertension Sister -: Heart disease, Hypertension - Social History Smoking Status: Never smoker Alcohol use: No CD- Drugs: No Caffeine use: No Place of Residence: Home Review of Systems 10-point ROS is otherwise unremarkable Physical Examination - Vital Signs Temperature: 100.2 F Blood Pressure: 150/63 Pulse: 68 Respirations: 20 Pulse Ox (%): 95 - Physical Exam General: Alert, In no apparent distress, Oriented x1, Other (pleasantly confused) HEENT: Normocephalic, PERRLA Neck: Supple Respiratory: Clear to auscultation bilaterally, Normal air movement Cardiovascular: No edema, Regular rate/rhythm Gastrointestinal: Soft and benign, Non-distended, No tenderness Musculoskeletal: No erythema, No tenderness Integumentary: No rashes, No significant lesion Neurological: Normal speech, Normal strength at 5/5 x4 extr, Cranial nerves 3-12 intact, Normal affect Assessment and Plan - Advance Directives Does patient have a Living Will: No Does patient have a Durable POA for Healthcare: No Physician Review Additional Text: Metabolic encephalopathy secondary to UTI Generalized weakness. Hypertension DM 2 GERD BPH Dementia metabolic encephalopathy likely secondary to UTI, pt with fever at home, elevated procalcitonin does not meet sepsis criteria continue rocephin PT/OT consulted CT Brain - negative for acute process, Notable for significant brain atrophy and volume loss. Moderate periventricular and deep white matter chronic microvascular ischemic changes. Patient likely no reserve given his chronic microvascular changes, at risk of metabolic encephalopathy Patient without any nuchal rigidity, no current headache at this time, no photophobia, and do not suspect meningitis at this time f/u urine culture VTE: lovenox Dispo: Anticipate dc home in ~48hrs, pending improvement of mentation, if not, may need SNF Time Spent Managing Pts Care (In Minutes): 60
[2020-07-04] MEDS ORDERED: HOME MED 1 EA UNK (Quetiapine Fumarate [Seroquel] 50 MG Tablet) PO SCH (21:00)
[2020-07-04] MEDS: QUETIAPINE 25 MG TAB PO SCH (22:21)
[2020-07-04] MEDS: TAMSULOSIN 0.4 MG SR CAP PO SCH (22:21)
[2020-07-05] MEDS: ACETAMINOPHEN 500 MG TAB PO PRN ×2 (00:34→17:20)
[2020-07-05] MEDS: NA CHLORIDE 0.9% 1,000 ML IV SCH ×2 (01:14→14:34)
[2020-07-05 04:41] LABS: Absolute Lymphocytes (CBC) 2.9 K/uL (0.7-4.9); Basophils % 0.4 % (0-1.3); Hematocrit 36.4 % (39.6-49.0); Lymphocytes % 34.9 % (15.3-44.8); MPV 8.8 fL (7.6-11.3)
[2020-07-05 05:42] LABS: Albumin 3.3 g/dL (3.4-5.0); Bilirubin Total 0.8 mg/dL (0.2-1.0); Ferritin 273.6 ng/mL (26-388); Magnesium 2.6 mg/dL (1.8-2.4); Protein, Total 7.7 g/dL (6.4-8.2)
[2020-07-05] MEDS: ENOXAPARIN 30 MG/0.3 ML SQ SCH (08:03)
[2020-07-05] MEDS: CEFTRIAXONE/SWI 2gm 2 GM/20 ML SYR IVP SCH (08:03)
[2020-07-05] MEDS: CHLORTHALIDONE 25 MG TAB PO SCH (08:04)
[2020-07-05] MEDS: carvediloL 12.5 MG TAB PO SCH (08:04)
[2020-07-05] MEDS: QUETIAPINE 25 MG TAB PO SCH ×2 (08:04→23:32)
[2020-07-05] MEDS: CLOPIDOGREL 75 MG TABLET PO SCH (08:04)
[2020-07-05] MEDS: TAMSULOSIN 0.4 MG SR CAP PO SCH (21:00)
--- NOTE | 2020-07-05 22:59 | P.PN ---
Subjective Date of Service: 07/05/20 Chief Complaint: Altered mental status, weakness, UTI Subjective: No new changes (slightly more awake/alert. pleasantly confused. oriented to self only. has been scratching at his scrotum and caused skin tear, no erythema, no skin lesions seen. Unable to tell me if scrotum itches or has been hurting. noted long nails. pt without complaints) Review of Systems 10-point ROS is otherwise unremarkable Physical Examination - Vital Signs Temperature: 99.3 F Blood Pressure: 168/82 Pulse: 77 Respirations: 19 Pulse Ox (%): 95 - Studies Laboratory Data (last 24 hrs) 07/05/20 04:24: Sodium 137, Potassium 4.0, BUN 39 H, Creatinine 1.94 H, Glucose 119 H, Magnesium 2.6 H D, Total Bilirubin 0.8, AST 69 H, ALT 26, Alkaline Phosphatase 76 07/05/20 04:24: WBC 8.2, Hgb 12.0 L, Hct 36.4 L, Plt Count 163 Assessment & Plan Physician Review Additional Text: Metabolic encephalopathy secondary to UTI Generalized weakness. Hypertension DM 2 GERD BPH Dementia metabolic encephalopathy likely secondary to UTI, pt with fever at home, elevated procalcitonin UA suggestive of UTI, however urine culture negative continue rocephin procal improving mentation about the same - may take longer as patient has minimal reserve given his significant brain atrophy and microvascular ischemic changes PT/OT consulted Patient without any nuchal rigidity, no current headache at this time, no photophobia, and do not suspect meningitis at this time apply antifungal to scrotum for now, monitor patient closely to not scratch at scrotum and tear more skin, constant need for redirection, may need mittens VTE: lovenox Dispo: PT recommending SNF Time Spent Managing Pts Care (In Minutes): 35
[2020-07-06] MEDS: NA CHLORIDE 0.9% 1,000 ML IV SCH ×2 (06:03→17:03)
[2020-07-06 06:43] LABS: Absolute Lymphocytes (CBC) 2.5 K/uL (0.7-4.9); Basophils % 0.4 % (0-1.3); Hematocrit 36.7 % (39.6-49.0); Lymphocytes % 31.8 % (15.3-44.8); MPV 8.8 fL (7.6-11.3); RBC Red Blood Cell Count 4.18 M/uL (4.33-5.43)
[2020-07-06 07:17] LABS: Albumin 3.1 g/dL (3.4-5.0); Bilirubin Total 0.8 mg/dL (0.2-1.0); Ferritin 371.6 ng/mL (26-388); Magnesium 2.6 mg/dL (1.8-2.4); Potassium 3.7 mmol/L (3.5-5.1); Protein, Total 7.7 g/dL (6.4-8.2)
--- NOTE | 2020-07-06 08:13 | RAD REPORT ---
EXAM DESCRIPTION: [place] Single View07/06/2020 12:25 am CLINICAL HISTORY: Fever COMPARISON: July 03, 2020 FINDINGS: [id number] bilateral pulmonary opacities unchanged. Heart remains enlarged IMPRESSION: Mild to moderate bilateral pulmonary opacities likely pneumonia
[2020-07-06] MEDS: AMLODIPINE 10 MG TAB PO SCH (10:31)
[2020-07-06] MEDS: QUETIAPINE 25 MG TAB PO SCH ×2 (10:31→21:00)
[2020-07-06] MEDS: carvediloL 12.5 MG TAB PO SCH (10:31)
[2020-07-06] MEDS: CLOPIDOGREL 75 MG TABLET PO SCH (10:31)
[2020-07-06] MEDS: ENOXAPARIN 30 MG/0.3 ML SQ SCH (10:32)
[2020-07-06] MEDS: CHLORTHALIDONE 25 MG TAB PO SCH (10:32)
[2020-07-06] MEDS: CEFTRIAXONE/SWI 2gm 2 GM/20 ML SYR IVP SCH (10:34)
--- NOTE | 2020-07-06 10:48 | RAD REPORT ---
EXAM DESCRIPTION: MRI - Brain Wo Cont - 07/05/2020 9:02 pm CLINICAL HISTORY: Syncope COMPARISON: July 03, [address] TECHNIQUE: Axial, sagittal, and coronal magnetic images of the brain were obtained. Contrast was not requested FINDINGS: Images are degraded by patient motion artifact. Mild to moderate signal within periventricular, deep and subcortical white matter likely ischemic brianna nges secondary to small vessel disease. Cerebral atrophy is present. Prominence of ventricles probably related to white matter atrophy Diffusion-weighted/ADC mapping does not reveal evidence of acute infarction. An extra-axial fluid collection is not present Fluid within the sinuses/mastoids is not noted IMPRESSION: No acute abnormality is displayed
[2020-07-06] MEDS: ACETAMINOPHEN 500 MG TAB PO PRN ×2 (11:17→21:36)
--- NOTE | 2020-07-06 11:31 | RAD REPORT ---
EXAM DESCRIPTION: CT - Abdomen Pelvis Wo Contrast - 07/06/2020 7:03 am CLINICAL HISTORY: Abdominal pain COMPARISON: 2018 TECHNIQUE: Computed axial tomography of the abdomen and pelvis was obtained. IV and oral contrast we re not requested. All CT scans are performed using dose optimization technique as appropriate and may include automated exposure control or mA/KV adjustment according to patient size. FINDINGS: The evaluation of solid organs, vessels and bowel is limited secondary to the lack of con trast administration. Some images are degraded by patient motion artifact [id number] bibasilar ground-glass opacities within the lungs. Cholelithiasis. The gallbladder is contracted. Gallbladder wall does not appear thickened The liver, spleen, pancreas, and adrenals appear grossly normal. Bilateral renal cysts. The prostate gland is mildly enlarged. Small bilateral inguinal hernias. There is no evidence of diverticulitis. No right hip joint effusion. Femoral fracture is not visualized IMPRESSION: Mild to moderate bilateral ground-glass opacities within the lungs likely Covid pneumoni a. Cholelithiasis. Gallbladder wall does not appear thickened
[2020-07-06 14:09] LABS: Urine Appearance CLOUDY; Urine Bilirubin NEGATIVE (NEG); Urine Blood 2+ (NEG); Urine Color YELLOW; Urine Glucose NEGATIVE (NEG); Urine Protein 3+ (NEG); Urine Urobilinogen 0.2 mg/dL (0.2-1.0); Urine pH 5.5 (5.0-7.0)
[2020-07-06 14:11] LABS: Urine Microscopic Reflex ORDER UMIC
[2020-07-06 14:22] LABS: Urine Bacteria <20 /HPF (NONE SEEN); Urine RBC <5 /HPF (NONE SEEN)
--- NOTE | 2020-07-06 14:45 | P.PN ---
Subjective Date of Service: 07/06/20 Chief Complaint: Altered mental status, weakness, UTI Subjective: Other (remains AAOx1, pleasantly confused. unable to have meaningful conversation, seems to have pain of R leg, points from hip to calf.) Review of Systems 10-point ROS is otherwise unremarkable Physical Examination - Vital Signs Temperature: 98.9 F Blood Pressure: 98/52 Pulse: 70 Respirations: 18 Pulse Ox (%): 94 - Studies Microbiology Data (last 24 hrs): 07/03/20 18:30 Clean Catch Urine [place] Count - Final No growth. 07/03/20 18:30 Clean Catch Urine - Final No growth. Assessment & Plan Physician Review Additional Text: Physical Exam: Gen: AAOx1 HEENT: normal conjunctiva CV: RRR, no edema Pulm: CTAB, dimished at bases slightly Abd: soft, NTND Ext: TTP at R trochanter and R calf. Calf pt with dorsiflexion of R foot. b/l legs warm/well-perfused Metabolic encephalopathy secondary to UTI Generalized weakness. s/p fall at home R leg pain Hypertension DM 2 GERD BPH Dementia metabolic encephalopathy likely secondary to UTI, pt with fever at home, elevated procalcitonin Patient without any nuchal rigidity, no current headache at this time, no photophobia, and do not suspect meningitis at this time UA suggestive of UTI, however urine culture negative; procal trending down, will continue rocephin for now mentation about the same - may take longer as patient has minimal reserve given his significant brain atrophy and microvascular ischemic changes now developing COVID-19 pneumonia signs on CXR, breathing comfortably on RA, CRP and ferritin increasing, will start solumedrol, give ivermectin as well PT/OT consulted Daughter reports R leg pain from hip to calf since fall at home ~1 week ago R calf tenderness on exam r/o DVT, get x-rays of R leg discussed with radiology CT without evidence of fracture of R femur continue antifungal cream to scrotum - patient scratched and tore skin VTE: lovenox Dispo: PT recommending SNF Daughter reports baseline is walking slowly, AAOx3, with "bad" short term memory Time Spent Managing Pts Care (In Minutes): 35
--- NOTE | 2020-07-06 16:53 | RAD REPORT ---
EXAM DESCRIPTION: USExtremity Venous [employer]07/06/2020 4:24 pm CLINICAL HISTORY: Right leg pain COMPARISON: 2009 FINDINGS: Right common femoral, superficial femoral, popliteal and right posterior tibial veins are compressible and demonstrate augmentation. Doppler demonstrates good flow. IMPRESSION: No evidence of deep venous thrombosis involving the right lower extremity.
--- NOTE | 2020-07-06 16:58 | RAD REPORT ---
EXAM DESCRIPTION: RAD - Femur Right - 07/06/2020 4:34 pm CLINICAL HISTORY: Leg pain FINDINGS: No fracture is seen. Bones appear osteoporotic
--- NOTE | 2020-07-06 16:59 | RAD REPORT ---
EXAM DESCRIPTION: RAD - Knee Right 2 View - 07/06/2020 4:34 pm CLINICAL HISTORY: Right knee pain FINDINGS: No fracture or dislocation seen. Right the prosthesis is in good position without evidence of loosening
--- NOTE | 2020-07-06 17:00 | RAD REPORT ---
EXAM DESCRIPTION: RAD - Tib Fib Right - 07/06/2020 4:34 pm CLINICAL HISTORY: Right leg pain FINDINGS: No fracture is seen.
[2020-07-06] MEDS: TAMSULOSIN 0.4 MG SR CAP PO SCH (21:34)
[2020-07-06] MEDS: METHYLPREDNISOLONE 40 MG INJ IV SCH (21:35)
[2020-07-06] MEDS: LIDOCAINE 4% PATCH TOP SCH (21:43)
[2020-07-07 04:11] LABS: Absolute Lymphocytes (CBC) 1.5 K/uL (0.7-4.9); Basophils % 0.4 % (0-1.3); Hematocrit 34.6 % (39.6-49.0); Lymphocytes % 20.9 % (15.3-44.8); MPV 8.6 fL (7.6-11.3); RBC Red Blood Cell Count 3.92 M/uL (4.33-5.43)
[2020-07-07 04:54] LABS: Ferritin 466.3 ng/mL (26-388); Magnesium 2.7 mg/dL (1.8-2.4); Phosphorus 3.4 mg/dL (2.5-4.9); Potassium 3.9 mmol/L (3.5-5.1)
[2020-07-07] MEDS ORDERED: IVERMECTIN 3 MG TABLET PO ONE (08:00)
[2020-07-07] MEDS: LIDOCAINE 4% PATCH TOP SCH (09:00)
[2020-07-07] MEDS: METHYLPREDNISOLONE 40 MG INJ IV SCH ×2 (09:47→22:52)
[2020-07-07] MEDS: AMLODIPINE 10 MG TAB PO SCH (09:47)
[2020-07-07] MEDS: CLOPIDOGREL 75 MG TABLET PO SCH (09:47)
[2020-07-07] MEDS: ENOXAPARIN 30 MG/0.3 ML SQ SCH (09:47)
[2020-07-07] MEDS: carvediloL 12.5 MG TAB PO SCH (09:48)
[2020-07-07] MEDS: CEFTRIAXONE/SWI 2gm 2 GM/20 ML SYR IVP SCH (09:48)
[2020-07-07] MEDS: QUETIAPINE 25 MG TAB PO SCH ×2 (09:49→22:51)
--- NOTE | 2020-07-07 11:50 | P.PN ---
Subjective Date of Service: 07/07/20 Chief Complaint: Altered mental status, weakness, UTI Subjective: Improving (More alert and oriented today. Able to have a conversation. Reports pain in her right calf. Denies shortness of breath or cough. Denies abdominal pain. without complaints) Review of Systems 10-point ROS is otherwise unremarkable Physical Examination - Vital Signs Temperature: 97.7 F Blood Pressure: 135/65 Pulse: 62 Respirations: 17 Pulse Ox (%): 93 - Studies Microbiology Data (last 24 hrs): 07/03/20 18:30 Clean Catch Urine [place] Count - Final No growth. 07/03/20 18:30 Clean Catch Urine - Final No growth. Assessment & Plan Physician Review Additional Text: Physical Exam: Gen: AAOx2, more conversive HEENT: normal conjunctiva CV: RRR, no edema Pulm: CTAB, diminished at bases slightly, on RA Abd: soft, NTND Ext: TTP R calf. b/l legs warm/well-perfused Problem List: Metabolic encephalopathy secondary to UTI Generalized weakness. s/p fall at home R leg pain Hypertension DM 2 GERD BPH Dementia metabolic encephalopathy likely secondary to UTI, pt with fever at home, elevated procalcitonin UA suggestive of UTI, however urine culture negative; procal trending down, will continue rocephin for now Mentation moderately improved today, patient has minimal reserve given his significant brain atrophy and microvascular ischemic changes now developing COVID-19 pneumonia signs on CXR, breathing comfortably on RA, CRP and ferritin increasing, Given 1st dose of liver mass done on 07/06, increase Solu-Medrol from 60 mg to 80 mg b.i.d., will start remdesevir PT/OT consulted Xrays and RLE U/S negative for fracture or DVT discussed with radiology CT without evidence of fracture of R femur continue antifungal cream to scrotum - patient scratched and tore skin VTE: lovenox Dispo: PT recommending SNF. anticipate patient will be ready for dc in 24- 48hrs, high risk for complication with COVID as well Daughter reports baseline is walking slowly, AAOx3, with "bad" short term memory. getting closer to his baseline CRP/ferritin increasing, will trend and continue to monitor. Time Spent Managing Pts Care (In Minutes): 35
[2020-07-07] MEDS: TAMSULOSIN 0.4 MG SR CAP PO SCH (22:51)
[2020-07-08 04:28] LABS: Hematocrit 33.6 % (39.6-49.0); RBC Red Blood Cell Count 3.81 M/uL (4.33-5.43)
[2020-07-08 04:54] LABS: Ferritin 518.2 ng/mL (26-388); Magnesium 2.7 mg/dL (1.8-2.4); Potassium 3.9 mmol/L (3.5-5.1)
[2020-07-08] MEDS: LIDOCAINE 4% PATCH TOP SCH (08:59)
[2020-07-08] MEDS: CEFTRIAXONE/SWI 2gm 2 GM/20 ML SYR IVP SCH (09:02)
[2020-07-08] MEDS: AMLODIPINE 10 MG TAB PO SCH (09:03)
[2020-07-08] MEDS: CLOPIDOGREL 75 MG TABLET PO SCH (09:03)
[2020-07-08] MEDS: METHYLPREDNISOLONE 40 MG INJ IV SCH (09:04)
[2020-07-08] MEDS: QUETIAPINE 25 MG TAB PO SCH ×2 (09:04→21:37)
[2020-07-08] MEDS: carvediloL 12.5 MG TAB PO SCH (09:04)
[2020-07-08] MEDS: ENOXAPARIN 30 MG/0.3 ML SQ SCH (09:04)
[2020-07-08] MEDS: CHLORTHALIDONE 25 MG TAB PO SCH (13:52)
--- NOTE | 2020-07-08 14:39 | P.PN ---
Subjective Date of Service: 07/08/20 Chief Complaint: Altered mental status, weakness, UTI Subjective: Improving (More alert and oriented, more conversive today, reports having a cough) Review of Systems 10-point ROS is otherwise unremarkable Physical Examination - Vital Signs Temperature: 97.5 F Blood Pressure: 133/62 Pulse: 60 Respirations: 16 Pulse Ox (%): 94 Assessment & Plan Physician Review Additional Text: Physical Exam: Gen: AAOx2, pleasant, still with confusion HEENT: normal conjunctiva CV: RRR, no edema Pulm: diminished at bases slightly, on RA Abd: soft, NTND Ext: mild TTP at R calf and R hip Problem List: Metabolic encephalopathy secondary to UTI Generalized weakness. s/p fall at home R leg pain Hypertension DM 2 GERD BPH Dementia metabolic encephalopathy likely secondary to UTI, pt with fever at home, elevated procalcitonin UA suggestive of UTI, however urine culture negative; procal trending down, will continue rocephin for now Possible prostatitis, patient refused rectal exam, reported no difficulty stooling or urinating Mentation has improved, getting close to baseline; patient has minimal reserve given his significant brain atrophy and microvascular ischemic changes now developing COVID-19 pneumonia signs on CXR, breathing comfortably on RA, ferritin increasing, CRP down today, +cough Given 1st dose of ivermectin done on 07/07, increased Solu-Medrol from 60 mg to 80 mg b.i.d. on 07/07 PT/OT consulted Xrays and RLE U/S negative for fracture or DVT discussed with radiology CT without evidence of fracture of R femur continue antifungal cream to scrotum - patient scratched and tore skin when he was confused VTE: lovenox Dispo: PT recommending SNF. to work with patient again today. anticipate he will be ready in 24 hrs. SS/CM consulted for assistance with SNF placement Daughter reports baseline is walking slowly, AAOx3, with "bad" short term memory. getting closer to his baseline ferritin increasing, CRP improving will trend and continue to monitor. Time Spent Managing Pts Care (In Minutes): 35
[2020-07-08] MEDS: TAMSULOSIN 0.4 MG SR CAP PO SCH (21:37)
[2020-07-08] MEDS: METHYLPREDNISOLONE 125 MG INJ IV SCH (21:37)
[2020-07-08] MEDS: ACETAMINOPHEN 500 MG TAB PO PRN (21:38)
[2020-07-09 04:18] LABS: Hematocrit 34.2 % (39.6-49.0); MPV 9.1 fL (7.6-11.3)
[2020-07-09 04:52] LABS: C-Reactive Protein 95.6 mg/L (<3.00); Ferritin 521.2 ng/mL (26-388); Potassium 3.9 mmol/L (3.5-5.1)
[2020-07-09] MEDS ORDERED: IVERMECTIN 3 MG TABLET PO ONE (09:00)
[2020-07-09] MEDS: carvediloL 12.5 MG TAB PO SCH (09:34)
[2020-07-09] MEDS: CEFTRIAXONE/SWI 2gm 2 GM/20 ML SYR IVP SCH (09:34)
[2020-07-09] MEDS: QUETIAPINE 25 MG TAB PO SCH ×2 (09:34→21:08)
[2020-07-09] MEDS: METHYLPREDNISOLONE 125 MG INJ IV SCH ×2 (09:35→21:08)
[2020-07-09] MEDS: CLOPIDOGREL 75 MG TABLET PO SCH (09:35)
[2020-07-09] MEDS: AMLODIPINE 10 MG TAB PO SCH (09:35)
[2020-07-09] MEDS: LIDOCAINE 4% PATCH TOP SCH (09:35)
[2020-07-09] MEDS: ENOXAPARIN 30 MG/0.3 ML SQ SCH (09:36)
[2020-07-09] MEDS: CHLORTHALIDONE 25 MG TAB PO SCH (13:17)
[2020-07-09] MEDS: ENSURE HIGH PROTEIN 237 ML CAN PO SCH (21:00)
[2020-07-09] MEDS: BENZONATATE 100 MG CAP PO PRN (21:07)
[2020-07-09] MEDS: TAMSULOSIN 0.4 MG SR CAP PO SCH (21:08)
[2020-07-10 03:58] LABS: Absolute Lymphocytes (CBC) 1.1 K/uL (0.7-4.9); Basophils % 0.3 % (0-1.3); Hematocrit 34.8 % (39.6-49.0); Lymphocytes % 5.5 % (15.3-44.8); RBC Red Blood Cell Count 3.97 M/uL (4.33-5.43)
[2020-07-10 04:31] LABS: Albumin 2.5 g/dL (3.4-5.0); Bilirubin Total 0.5 mg/dL (0.2-1.0); Ferritin 674.9 ng/mL (26-388); Magnesium 3.2 mg/dL (1.8-2.4); Phosphorus 2.8 mg/dL (2.5-4.9); Potassium 3.9 mmol/L (3.5-5.1); Protein, Total 7.2 g/dL (6.4-8.2)
[2020-07-10] MEDS: BENZONATATE 100 MG CAP PO PRN ×3 (05:30→20:26)
[2020-07-10 07:58] LABS: Blood Morphology Comment NOT SEEN (NOT SEEN); Platelet Estimate ADEQ; White Blood Cell Scan OK (OK)
[2020-07-10] MEDS: CEFTRIAXONE/SWI 2gm 2 GM/20 ML SYR IVP SCH (08:58)
[2020-07-10] MEDS: CHLORTHALIDONE 25 MG TAB PO SCH (08:58)
[2020-07-10] MEDS: CLOPIDOGREL 75 MG TABLET PO SCH (08:59)
[2020-07-10] MEDS: AMLODIPINE 10 MG TAB PO SCH (08:59)
[2020-07-10] MEDS: QUETIAPINE 25 MG TAB PO SCH ×2 (08:59→20:27)
[2020-07-10] MEDS: ENOXAPARIN 30 MG/0.3 ML SQ SCH (08:59)
[2020-07-10] MEDS ORDERED: PNEUMOCOCCAL VACCINE 0.5 ML IMVAC ONE (09:00)
[2020-07-10] MEDS: METHYLPREDNISOLONE 125 MG INJ IV SCH ×2 (09:00→20:27)
[2020-07-10] MEDS: carvediloL 12.5 MG TAB PO SCH (09:00)
[2020-07-10] MEDS: ENSURE HIGH PROTEIN 237 ML CAN PO SCH ×2 (09:01→20:30)
[2020-07-10] MEDS: LIDOCAINE 4% PATCH TOP SCH (09:01)
--- NOTE | 2020-07-10 09:42 | P.PN ---
Subjective Date of Service: 07/09/20 Patient with dementia. He does not really answer any of my questions appropriately. Patient remains hypoxic and was placed on high-flow according to the nurses today. Patient will be monitored closely. Family is not wanting him to go to a nursing facility. Review of Systems 10-point ROS is otherwise unremarkable Physical Examination - Vital Signs Temperature: 97 F Blood Pressure: 151/67 Pulse: 60 Respirations: 22 Pulse Ox (%): 95 - Physical Exam General: Alert, In no apparent distress, Oriented x3 Respiratory: Clear to auscultation bilaterally, Normal air movement Cardiovascular: Regular rate/rhythm, Normal S1 S2, No murmurs Gastrointestinal: Normal bowel sounds, Soft and benign, Non-distended, No tenderness Musculoskeletal: No clubbing, No swelling, No tenderness Neurological: Sensation intact, Cranial nerves 3-12 intact - Studies Medications List Reviewed: Yes Assessment & Plan - Problems (Diagnosis) (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 Continue supportive care with high-flow oxygen 2. IV steroids 3. Repeat chest x-ray is symptoms are progressively worsening 4. Continue with Pulmonary consultation 5. GI and DVT prophylaxis Discharge Plan: Home Plan to discharge in: Greater than 2 days - Advance Directives Does patient have a Living Will: No Does patient have a Durable POA for Healthcare: No - Code Status/Comfort Care Code Status Assessed: Yes Code Status: Full Code Critical Care: No Time Spent Managing PTS Care (In Minutes): 35
[2020-07-10] MEDS: TAMSULOSIN 0.4 MG SR CAP PO SCH (20:27)
[2020-07-11] MEDS: ENOXAPARIN 30 MG/0.3 ML SQ SCH (09:28)
[2020-07-11] MEDS: CHLORTHALIDONE 25 MG TAB PO SCH (09:28)
[2020-07-11] MEDS: CLOPIDOGREL 75 MG TABLET PO SCH (09:28)
[2020-07-11] MEDS: METHYLPREDNISOLONE 125 MG INJ IV SCH ×2 (09:28→21:24)
[2020-07-11] MEDS: QUETIAPINE 25 MG TAB PO SCH ×2 (09:28→21:24)
[2020-07-11] MEDS: carvediloL 12.5 MG TAB PO SCH (09:28)
[2020-07-11] MEDS: AMLODIPINE 10 MG TAB PO SCH (09:29)
[2020-07-11] MEDS: LIDOCAINE 4% PATCH TOP SCH (09:29)
[2020-07-11] MEDS: ENSURE HIGH PROTEIN 237 ML CAN PO SCH ×2 (09:30→21:00)
[2020-07-11] MEDS: BENZONATATE 100 MG CAP PO PRN (21:23)
[2020-07-11] MEDS: TAMSULOSIN 0.4 MG SR CAP PO SCH (21:24)
[2020-07-12] MEDS: ACETAMINOPHEN 500 MG TAB PO PRN ×2 (00:49→20:27)
[2020-07-12 06:57] LABS: Absolute Lymphocytes (CBC) 0.9 K/uL (0.7-4.9); Basophils % 0.1 % (0-1.3); Hematocrit 35.7 % (39.6-49.0); MPV 9.1 fL (7.6-11.3); RBC Red Blood Cell Count 4.03 M/uL (4.33-5.43)
[2020-07-12 07:07] LABS: Albumin 2.2 g/dL (3.4-5.0); Bilirubin Total 0.7 mg/dL (0.2-1.0); Ferritin 855.5 ng/mL (26-388); Magnesium 3.1 mg/dL (1.8-2.4); Phosphorus 3.7 mg/dL (2.5-4.9); Protein, Total 7.4 g/dL (6.4-8.2)
--- NOTE | 2020-07-12 07:25 | P.PN ---
Date of Service: 07/10/20 Subjective Patient's oxygen requirements increased significantly. Continue to monitor closely. 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 Onset Date: 03/01/17 Current Visit: No Status: Acute (3) Weakness generalized Onset Date: 03/01/17 Current Visit: No Status: Acute (4) Hypertension Current Visit: Yes Status: Acute (5) Type 2 diabetes mellitus Current Visit: Yes Status: Acute (6) Pneumonia due to COVID-19 virus Current Visit: Yes Status: Acute - Plan 1. Continue supportive care with high-flow oxygen 2. IV steroids 3. Repeat chest x-ray is symptoms are progressively worsening 4. Continue with antibiotic therapy at this time. If cultures are negative then will discontinue 5. Placement concerns with family 6. GI and DVT prophylaxis
--- NOTE | 2020-07-12 07:29 | P.PN ---
Date of Service: 07/11/20 Subjective Patient still with hypoxemia. Still pleasantly confused. Follows my commands. 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 Onset Date: 03/01/17 Current Visit: No Status: Acute (3) Weakness generalized Onset Date: 03/01/17 Current Visit: No Status: Acute (4) Hypertension Current Visit: Yes Status: Acute (5) Type 2 diabetes mellitus Current Visit: Yes Status: Acute (6) Pneumonia due to COVID-19 virus Current Visit: Yes Status: Acute - Plan 1. Continue supportive care with high-flow oxygen 2. Continue with IV steroids 3. Repeat chest x-ray if symptoms are progressively worsening 4. Continue with antibiotic therapy at this time. Plan and Dc in 48 hr if no positive cultures 5. Placement concerns with family; social media job titles discussing with them. At this time possibility of going home 6. GI and DVT prophylaxis
[2020-07-12 07:37] LABS: Blood Morphology Comment NOT SEEN (NOT SEEN); Platelet Estimate ADEQ
[2020-07-12 07:40] LABS: White Blood Cell Scan OK (OK)
--- NOTE | 2020-07-12 08:30 | P.PN ---
Date of Service: 07/12/20 Patient's condition declining. Requiring more and more oxygen at this time. Currently on high-flow at 100%. Also has a face mask on top of that. Spoke with daughter and she is his medical power of manager instrumentation if patient is a do not attempt resuscitation. Will continue with current plan of care. Family may need to consider palliative care if patient's condition worsens. They do want to come and visit him as his prognosis is poor.
[2020-07-12] MEDS: ENOXAPARIN 100 MG/ML SYR SQ SCH ×2 (09:22→20:27)
[2020-07-12] MEDS: AMLODIPINE 10 MG TAB PO SCH (09:22)
[2020-07-12] MEDS: CHLORTHALIDONE 25 MG TAB PO SCH (09:22)
[2020-07-12] MEDS: CLOPIDOGREL 75 MG TABLET PO SCH (09:22)
[2020-07-12] MEDS: QUETIAPINE 25 MG TAB PO SCH ×2 (09:22→20:30)
[2020-07-12] MEDS: carvediloL 12.5 MG TAB PO SCH (09:22)
[2020-07-12] MEDS: LIDOCAINE 4% PATCH TOP SCH (09:23)
[2020-07-12] MEDS: METHYLPREDNISOLONE 125 MG INJ IV SCH ×2 (09:25→20:28)
[2020-07-12] MEDS: ENSURE HIGH PROTEIN 237 ML CAN PO SCH ×2 (09:25→20:28)
[2020-07-12] MEDS ORDERED: BACLOFEN 10 MG TAB PO ONE (16:15)
[2020-07-12] MEDS ORDERED: SODIUM CHLORIDE 0.9% 10ML INJ IV PRN (16:16)
[2020-07-12] MEDS ORDERED: PANTOPRAZOLE 40 MG INJ IVP ONE (16:16)
[2020-07-12] MEDS: BENZONATATE 100 MG CAP PO PRN (20:27)
[2020-07-12] MEDS: TAMSULOSIN 0.4 MG SR CAP PO SCH (20:27)
[2020-07-12] MEDS: PANTOPRAZOLE 40 MG INJ IVP SCH (20:50)
[2020-07-13] MEDS: LIDOCAINE 4% PATCH TOP SCH (08:49)
[2020-07-13] MEDS: CHLORTHALIDONE 25 MG TAB PO SCH (08:49)
[2020-07-13] MEDS: ENOXAPARIN 100 MG/ML SYR SQ SCH ×2 (08:49→20:33)
[2020-07-13] MEDS: METHYLPREDNISOLONE 125 MG INJ IV SCH ×2 (08:50→20:34)
[2020-07-13] MEDS: CLOPIDOGREL 75 MG TABLET PO SCH (08:50)
[2020-07-13] MEDS: QUETIAPINE 25 MG TAB PO SCH ×2 (08:50→20:32)
[2020-07-13] MEDS: AMLODIPINE 10 MG TAB PO SCH (08:50)
[2020-07-13] MEDS: carvediloL 12.5 MG TAB PO SCH (08:50)
[2020-07-13] MEDS: ENSURE HIGH PROTEIN 237 ML CAN PO SCH ×2 (08:52→20:31)
[2020-07-13] MEDS: PANTOPRAZOLE 40 MG INJ IVP SCH ×2 (09:00→20:32)
[2020-07-13] MEDS: ACETAMINOPHEN 500 MG TAB PO PRN (12:32)
[2020-07-13] MEDS ORDERED: INSULIN GLARGINE 100 UNITS/ML SQ ONE (17:57)
[2020-07-13] MEDS: TAMSULOSIN 0.4 MG SR CAP PO SCH (20:32)
[2020-07-14] MEDS: ENSURE HIGH PROTEIN 237 ML CAN PO SCH ×2 (09:00→21:52)
[2020-07-14] MEDS: ENOXAPARIN 100 MG/ML SYR SQ SCH ×2 (09:00→21:50)
[2020-07-14] MEDS: PANTOPRAZOLE 40MG TABLET PO SCH ×2 (09:19→17:09)
[2020-07-14] MEDS: LIDOCAINE 4% PATCH TOP SCH (09:20)
[2020-07-14] MEDS: carvediloL 12.5 MG TAB PO SCH (09:20)
[2020-07-14] MEDS: METHYLPREDNISOLONE 125 MG INJ IV SCH ×2 (09:21→21:48)
[2020-07-14] MEDS: QUETIAPINE 25 MG TAB PO SCH ×2 (09:21→21:51)
[2020-07-14] MEDS: AMLODIPINE 10 MG TAB PO SCH (09:21)
[2020-07-14] MEDS: CHLORTHALIDONE 25 MG TAB PO SCH (09:21)
[2020-07-14] MEDS: CLOPIDOGREL 75 MG TABLET PO SCH (09:21)
--- NOTE | 2020-07-14 14:59 | P.PN ---
Subjective Date of Service: 07/13/20 Patient remains very hypoxic. However, patient is more awake. Patient more alert as well. Family did come to visit with patient. Patient's wishes were to be a DNR, and we have continued this. Continue to monitor patient closely. Review of Systems 10-point ROS is otherwise unremarkable Physical Examination - Vital Signs Temperature: 98.3 F Blood Pressure: 140/64 Pulse: 63 Respirations: 22 Pulse Ox (%): 96 - Physical Exam General: Alert, In no apparent distress, Oriented x3 Respiratory: Diminished, Rhonchi/gurgles Cardiovascular: Regular rate/rhythm, Normal S1 S2, No murmurs Gastrointestinal: Normal bowel sounds, Soft and benign, Non-distended, No tenderness Musculoskeletal: No clubbing, No swelling, No tenderness Neurological: Sensation intact, Cranial nerves 3-12 intact - Studies Medications List Reviewed: Yes Assessment & Plan - Problems (Diagnosis) (1) Dementia in Alzheimer's disease Current Visit: Yes Status: Acute (2) UTI (urinary tract infection) Onset Date: 03/01/17 Current Visit: No Status: Acute (3) Weakness generalized Onset Date: 03/01/17 Current Visit: No Status: Acute (4) Hypertension Current Visit: Yes Status: Acute (5) Type 2 diabetes mellitus Current Visit: Yes Status: Acute (6) Pneumonia due to COVID-19 virus Current Visit: Yes Status: Acute - Plan Continue with plan of care as mentioned below 1. Continue supportive care with high-flow oxygen; continue to wean down the oxygen slowly 2. IV steroids; may wean down over the next few days his symptoms continued to improve 3. Patient is a do not resuscitate 4. Monitor labs closely 5. GI and DVT prophylaxis - Advance Directives Does patient have a Living Will: No Does patient have a Durable POA for Healthcare: No - Code Status/Comfort Care Code Status: Full Code
--- NOTE | 2020-07-14 15:03 | P.PN ---
Subjective Date of Service: 07/14/20 Patient doing better. He has started to eat more. Continue with the supportive care. Family has made him a do not resuscitate. Repeat inflammatory markers. Review of Systems 10-point ROS is otherwise unremarkable Physical Examination - Vital Signs Temperature: 98.3 F Blood Pressure: 140/64 Pulse: 63 Respirations: 22 Pulse Ox (%): 96 - Physical Exam General: Alert, In no apparent distress, Demented (Pleasantly), Confused Respiratory: Diminished, Crackles/rales Cardiovascular: Regular rate/rhythm, Normal S1 S2, No murmurs Gastrointestinal: Soft and benign, Non-distended, No tenderness Musculoskeletal: No clubbing, No swelling, No tenderness Neurological: Sensation intact, Cranial nerves 3-12 intact - Studies Medications List Reviewed: Yes Assessment & Plan - Problems (Diagnosis) (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 Continue supportive care with high-flow oxygen; still on 100% FiO2. Hopefully, we will be able to continue to wean down the oxygen slowly 2. IV steroids; may wean down over the next few days his symptoms continued to improve 3. Patient is a do not resuscitate 4. Monitor labs closely 5. GI and DVT prophylaxis Discharge Plan: Home Plan to discharge in: Greater than 2 days - Advance Directives Does patient have a Living Will: No Does patient have a Durable POA for Healthcare: No - Code Status/Comfort Care Code Status: Full Code Critical Care: No Time Spent Managing PTS Care (In Minutes): 35
[2020-07-14 17:07] LABS: Absolute Lymphocytes (CBC) 0.7 K/uL (0.7-4.9); Basophils % 0.2 % (0-1.3); Hematocrit 34.1 % (39.6-49.0); Lymphocytes % 3.6 % (15.3-44.8); RBC Red Blood Cell Count 3.93 M/uL (4.33-5.43)
[2020-07-14 17:23] LABS: Potassium 4.2 mmol/L (3.5-5.1)
[2020-07-14] MEDS: TAMSULOSIN 0.4 MG SR CAP PO SCH (21:51)
[2020-07-15] MEDS: BENZONATATE 100 MG CAP PO PRN (04:17)
[2020-07-15 04:23] LABS: Absolute Lymphocytes (CBC) 0.7 K/uL (0.7-4.9); Basophils % 0.1 % (0-1.3); Hematocrit 37.1 % (39.6-49.0); Lymphocytes % 4.1 % (15.3-44.8); MPV 9.2 fL (7.6-11.3); RBC Red Blood Cell Count 4.22 M/uL (4.33-5.43)
[2020-07-15 04:43] LABS: Albumin 2.2 g/dL (3.4-5.0); Bilirubin Total 0.8 mg/dL (0.2-1.0); C-Reactive Protein 73.1 mg/L (<3.00); Magnesium 3.4 mg/dL (1.8-2.4); Potassium 4.3 mmol/L (3.5-5.1); Protein, Total 7.1 g/dL (6.4-8.2)
[2020-07-15] MEDS: CLOPIDOGREL 75 MG TABLET PO SCH (08:50)
[2020-07-15] MEDS: PANTOPRAZOLE 40MG TABLET PO SCH ×2 (08:50→16:34)
[2020-07-15] MEDS: AMLODIPINE 10 MG TAB PO SCH (08:51)
[2020-07-15] MEDS: ENOXAPARIN 100 MG/ML SYR SQ SCH (08:51)
[2020-07-15] MEDS: carvediloL 12.5 MG TAB PO SCH (08:51)
[2020-07-15] MEDS: ENSURE HIGH PROTEIN 237 ML CAN PO SCH ×2 (08:51→20:36)
[2020-07-15] MEDS: CHLORTHALIDONE 25 MG TAB PO SCH (08:51)
[2020-07-15] MEDS: LIDOCAINE 4% PATCH TOP SCH (08:51)
[2020-07-15] MEDS: QUETIAPINE 25 MG TAB PO SCH ×2 (08:51→20:37)
[2020-07-15] MEDS: METHYLPREDNISOLONE 125 MG INJ IV SCH ×2 (08:52→20:36)
[2020-07-15 14:25] VITALS: BMI 30.7
--- NOTE | 2020-07-15 16:23 | P.PN ---
Subjective Date of Service: 07/15/20 Chief Complaint: Altered mental status, weakness, UTI Subjective: Other (Patient on non-rebreather. Overall stable. Patient with dementia) Physical Examination - Vital Signs Temperature: 98.1 F Blood Pressure: 164/75 Pulse: 63 Respirations: 24 Pulse Ox (%): 97 - Physical Exam General: Alert, Demented HEENT: Atraumatic Neck: Supple Respiratory: Other (Patient on non-rebreather. Patient appears stable.) Cardiovascular: Normal pulses, Regular rate/rhythm Neurological: Normal strength at 5/5 x4 extr, Dementia - Studies Medications List Reviewed: Yes Assessment & Plan Discharge Plan: Home Plan to discharge in: Greater than 2 days Physician Review Additional Text: Impression: Acute respiratory failure with hypoxia secondary to bilateral COVID 19 pneumonia Alzheimer dementia HTN DM Type 2 Plan: Acute respiratory failure with hypoxia secondary to bilateral COVID 19 pneumonia: Patient on non-rebreather. Continue with IV steroids and supplementation. Patient with underlying dementia but stable. Continue to wean off oxygen. Encourage incentive spirometer. Will discuss with respiratory. Will discuss with pulmonology as well. Will discuss with family about plan of care. Alzheimer dementia: Overall stable. Continue with mood stabilizers. HTN: Continue medication DM Type 2: Continue Accu-Cheks. restart oral medication. Maintain adequate control of blood sugar. Time Spent Managing Pts Care (In Minutes): 55
[2020-07-15] MEDS: ATORVASTATIN 10 MG TAB PO SCH (20:37)
[2020-07-15] MEDS: TAMSULOSIN 0.4 MG SR CAP PO SCH (20:37)
[2020-07-16] MEDS: GLIPIZIDE S.A. 5 MG TAB PO SCH ×2 (08:00→16:18)
[2020-07-16] MEDS: LIDOCAINE 4% PATCH TOP SCH (08:50)
[2020-07-16] MEDS: METHYLPREDNISOLONE 125 MG INJ IV SCH ×3 (08:51→20:46)
[2020-07-16] MEDS: PANTOPRAZOLE 40MG TABLET PO SCH ×2 (08:57→16:18)
[2020-07-16] MEDS: CLOPIDOGREL 75 MG TABLET PO SCH (08:58)
[2020-07-16] MEDS ORDERED: HOME MED 1 EA UNK (Lovastatin [Lovastatin] 20 MG Tablet) PO SCH (09:00)
[2020-07-16] MEDS: carvediloL 12.5 MG TAB PO SCH (09:00)
[2020-07-16] MEDS: QUETIAPINE 25 MG TAB PO SCH ×2 (09:00→20:46)
[2020-07-16] MEDS: CHLORTHALIDONE 25 MG TAB PO SCH (09:01)
[2020-07-16] MEDS: AMLODIPINE 10 MG TAB PO SCH (09:02)
[2020-07-16] MEDS: ENSURE HIGH PROTEIN 237 ML CAN PO SCH ×2 (09:04→20:47)
--- NOTE | 2020-07-16 12:41 | P.PN ---
Subjective Date of Service: 07/16/20 Chief Complaint: Altered mental status, weakness, UTI Subjective: Other (Patient more alert today. Patient with dementia) Physical Examination - Vital Signs Temperature: 96.7 F Blood Pressure: 144/66 Pulse: 56 Respirations: 18 Pulse Ox (%): 90 - Physical Exam General: Alert, Demented, Other (More alert today) Neck: Supple Respiratory: Other (On non-rebreather. Without significant distress) Cardiovascular: Normal pulses, Regular rate/rhythm Neurological: Normal speech, Normal strength at 5/5 x4 extr, Normal tone, Dementia - Studies Medications List Reviewed: Yes Assessment & Plan Discharge Plan: Home Plan to discharge in: Greater than 2 days Physician Review Additional Text: Impression: Acute respiratory failure with hypoxia secondary to bilateral COVID 19 pneumonia Alzheimer dementia HTN DM Type 2 BPH Hyperlipidemia Plan: Acute respiratory failure with hypoxia secondary to bilateral COVID 19 pneumonia: Slow improvement noted. Patient more alert today. Patient on non- rebreather. Will have respiratory try to wean off and trial with nasal cannula. Continue with IV steroids and supplementation. Patient with underlying dementia but stable. Encourage incentive spirometer. Will discuss with respiratory and pulmonology as well. Will discuss with family about plan of care. Alzheimer dementia: Overall stable. Continue with mood stabilizers. HTN: Continue medication DM Type 2: Continue Accu-Cheks. Continue to adjust medication. Maintain adequate control of blood sugar. BPH: Continue medication Hyperlipidemia: continue medication Time Spent Managing Pts Care (In Minutes): 55
[2020-07-16] MEDS: ASCORBIC ACID 500 MG TABLET PO SCH ×2 (13:40→20:46)
[2020-07-16] MEDS: ACETAMINOPHEN 500 MG TAB PO PRN (15:24)
[2020-07-16] MEDS: MELATONIN 5 MG TABLET PO SCH (20:45)
[2020-07-16] MEDS: TAMSULOSIN 0.4 MG SR CAP PO SCH (20:45)
[2020-07-16] MEDS: THIAMINE HCL 100 MG TABLET PO SCH (20:46)
[2020-07-16] MEDS: ENOXAPARIN 40 MG/0.4 ML SQ SCH (20:46)
[2020-07-16] MEDS: ATORVASTATIN 10 MG TAB PO SCH (20:46)
[2020-07-17 04:51] LABS: C-Reactive Protein 25.4 mg/L (<3.00); Ferritin 928.3 ng/mL (26-388)
[2020-07-17] MEDS: ENSURE HIGH PROTEIN 237 ML CAN PO SCH ×2 (08:33→20:58)
[2020-07-17] MEDS: ASCORBIC ACID 500 MG TABLET PO SCH ×3 (08:33→20:53)
[2020-07-17] MEDS: LIDOCAINE 4% PATCH TOP SCH (08:33)
[2020-07-17] MEDS: VITAMIN D 1000 UNIT TAB PO SCH (08:33)
[2020-07-17] MEDS: AMLODIPINE 10 MG TAB PO SCH (08:33)
[2020-07-17] MEDS: FOLIC ACID 1 MG TABLET PO SCH (08:33)
[2020-07-17] MEDS: PANTOPRAZOLE 40MG TABLET PO SCH ×2 (08:36→16:11)
[2020-07-17] MEDS: METHYLPREDNISOLONE 125 MG INJ IV SCH ×3 (08:36→20:55)
[2020-07-17] MEDS: QUETIAPINE 25 MG TAB PO SCH ×2 (08:37→20:54)
[2020-07-17] MEDS: THIAMINE HCL 100 MG TABLET PO SCH ×2 (08:37→20:54)
[2020-07-17] MEDS: ZINC SULFATE 220 MG CAP PO SCH (08:37)
[2020-07-17] MEDS: GLIPIZIDE S.A. 5 MG TAB PO SCH ×2 (08:37→16:11)
[2020-07-17] MEDS: CLOPIDOGREL 75 MG TABLET PO SCH (08:37)
[2020-07-17] MEDS: CHLORTHALIDONE 25 MG TAB PO SCH (08:38)
[2020-07-17] MEDS: carvediloL 12.5 MG TAB PO SCH (08:39)
--- NOTE | 2020-07-17 08:55 | RAD REPORT ---
EXAM DESCRIPTION: RAD - Chest Single View - 07/17/2020 6:45 am CLINICAL HISTORY: follow up COVID Chest pain. COMPARISON: Chest Single View dated 07/06/2020; Chest Single View dated 07/03/2020; Chest Single View dated 01/10/2019; Chest Single View dated 01/09/2019 FINDINGS: Portable technique limits examination quality. Moderate bilateral pulmonary opacities are noted, slightly worse on the left. The findings appear mod erately worse since comparative study. The heart is moderately enlarged. No displaced fractures. IMPRESSION: Moderate worsening in lung aeration is seen since comparative study.
--- NOTE | 2020-07-17 12:42 | P.PN ---
Subjective Date of Service: 07/17/20 Chief Complaint: Altered mental status, weakness, UTI Subjective: Demented (Still requiring non-rebreather), Other (Patient more alert.) Physical Examination - Vital Signs Temperature: 97.6 F Blood Pressure: 165/76 Pulse: 58 Respirations: 22 Pulse Ox (%): 95 - Physical Exam General: Alert, Demented HEENT: Atraumatic Neck: Supple Respiratory: Other (Patient on non-rebreather. No significant respiratory distress noted) Cardiovascular: Normal pulses Neurological: Normal speech, Normal strength at 5/5 x4 extr, Normal tone, Ed ntia - Studies Medications List Reviewed: Yes Assessment & Plan Discharge Plan: Home Plan to discharge in: 72 Hours Physician Review Additional Text: Impression: Acute respiratory failure with hypoxia secondary to bilateral COVID 19 pneumonia Alzheimer dementia HTN DM Type 2 BPH Hyperlipidemia Plan: Acute respiratory failure with hypoxia secondary to bilateral COVID 19 pneumonia: Slow improvement noted. Patient continues to be more alert. Will have respiratory try to wean off non-rebreather and trial on nasal cannula. Physical therapy ordered. Encourage incentive spirometer. Will discuss with family about discharge planning. Continue with IV steroids and supplementation. Alzheimer dementia: Overall stable. Continue with mood stabilizers. HTN: Continue medication DM Type 2: Continue Accu-Cheks. Continue to adjust medication. Maintain adequate control of blood sugar. BPH: Continue medication Hyperlipidemia: continue medication Time Spent Managing Pts Care (In Minutes): 55
[2020-07-17] MEDS: ENOXAPARIN 40 MG/0.4 ML SQ SCH (20:53)
[2020-07-17] MEDS: TAMSULOSIN 0.4 MG SR CAP PO SCH (20:54)
[2020-07-17] MEDS: ATORVASTATIN 10 MG TAB PO SCH (20:54)
[2020-07-17] MEDS: MELATONIN 5 MG TABLET PO SCH (20:55)
[2020-07-18 04:45] LABS: C-Reactive Protein 15.5 mg/L (<3.00); Ferritin 793.3 ng/mL (26-388)
[2020-07-18] MEDS: VITAMIN D 1000 UNIT TAB PO SCH (09:48)
[2020-07-18] MEDS: LIDOCAINE 4% PATCH TOP SCH (09:48)
[2020-07-18] MEDS: CHLORTHALIDONE 25 MG TAB PO SCH (09:48)
[2020-07-18] MEDS: CLOPIDOGREL 75 MG TABLET PO SCH (09:49)
[2020-07-18] MEDS: ZINC SULFATE 220 MG CAP PO SCH (09:49)
[2020-07-18] MEDS: ASCORBIC ACID 500 MG TABLET PO SCH ×3 (09:49→20:56)
[2020-07-18] MEDS: GLIPIZIDE S.A. 5 MG TAB PO SCH ×2 (09:49→16:50)
[2020-07-18] MEDS: METHYLPREDNISOLONE 125 MG INJ IV SCH ×3 (09:49→21:01)
[2020-07-18] MEDS: PANTOPRAZOLE 40MG TABLET PO SCH ×2 (09:50→16:50)
[2020-07-18] MEDS: THIAMINE HCL 100 MG TABLET PO SCH ×2 (09:50→20:56)
[2020-07-18] MEDS: AMLODIPINE 10 MG TAB PO SCH (09:50)
[2020-07-18] MEDS: FOLIC ACID 1 MG TABLET PO SCH (09:50)
[2020-07-18] MEDS: carvediloL 12.5 MG TAB PO SCH (09:50)
[2020-07-18] MEDS: ENSURE HIGH PROTEIN 237 ML CAN PO SCH ×2 (09:51→21:00)
[2020-07-18] MEDS: QUETIAPINE 25 MG TAB PO SCH ×2 (09:54→20:53)
--- NOTE | 2020-07-18 17:16 | P.PN ---
Subjective Date of Service: 07/18/20 Chief Complaint: Altered mental status, weakness, UTI Subjective: Other (Stable. More activity noted. On NRB.) Physical Examination - Vital Signs Temperature: 97.4 F Blood Pressure: 149/73 Pulse: 63 Respirations: 24 Pulse Ox (%): 91 - Studies Medications List Reviewed: Yes Assessment & Plan Discharge Plan: Home Plan to discharge in: 72 Hours Physician Review Additional Text: Physical Exam: Patient is alert. Dementia noted. Heart: normal rythym Lung: he is nonrebreather. GI: soft, nontender, nondistended EXT: good range of motion. Impression: Acute respiratory failure with hypoxia secondary to bilateral COVID 19 pneumonia Alzheimer dementia HTN DM Type 2 BPH Hyperlipidemia Plan: Acute respiratory failure with hypoxia secondary to bilateral COVID 19 pneumonia: Slow improvement noted. Patient continues to be more alert. Will have respiratory try to wean off non-rebreather and trial on nasal cannula. Physical therapy ordered. Encourage incentive spirometer. Discussed with family. Family wants for patient to return back at discharge. Continue with IV steroids and supplementation. Anticipate home in the next 72 hours. Alzheimer dementia: Overall stable. Continue with mood stabilizers. HTN: Continue medication DM Type 2: Continue Accu-Cheks. Continue to adjust medication. Maintain adequate control of blood sugar. BPH: Continue medication Hyperlipidemia: continue medication Time Spent Managing Pts Care (In Minutes): 55
[2020-07-18] MEDS: ENOXAPARIN 40 MG/0.4 ML SQ SCH (20:53)
[2020-07-18] MEDS: ATORVASTATIN 10 MG TAB PO SCH (20:55)
[2020-07-18] MEDS: MELATONIN 5 MG TABLET PO SCH (20:55)
[2020-07-18] MEDS: TAMSULOSIN 0.4 MG SR CAP PO SCH (20:56)
[2020-07-19 05:11] LABS: C-Reactive Protein 10.5 mg/L (<3.00); Ferritin 675.2 ng/mL (26-388); Potassium 4.4 mmol/L (3.5-5.1)
[2020-07-19] MEDS: VITAMIN D 1000 UNIT TAB PO SCH (08:34)
[2020-07-19] MEDS: ASCORBIC ACID 500 MG TABLET PO SCH ×3 (08:34→20:09)
[2020-07-19] MEDS: FOLIC ACID 1 MG TABLET PO SCH (08:34)
[2020-07-19] MEDS: THIAMINE HCL 100 MG TABLET PO SCH ×2 (08:34→20:09)
[2020-07-19] MEDS: GLIPIZIDE S.A. 5 MG TAB PO SCH ×2 (08:34→16:28)
[2020-07-19] MEDS: QUETIAPINE 25 MG TAB PO SCH ×2 (08:39→20:09)
[2020-07-19] MEDS: AMLODIPINE 10 MG TAB PO SCH (08:39)
[2020-07-19] MEDS: carvediloL 12.5 MG TAB PO SCH (08:40)
[2020-07-19] MEDS: CLOPIDOGREL 75 MG TABLET PO SCH (08:40)
[2020-07-19] MEDS: CHLORTHALIDONE 25 MG TAB PO SCH (08:40)
[2020-07-19] MEDS: PANTOPRAZOLE 40MG TABLET PO SCH ×2 (08:40→16:28)
[2020-07-19] MEDS: ENSURE HIGH PROTEIN 237 ML CAN PO SCH ×2 (08:41→20:09)
[2020-07-19] MEDS: METHYLPREDNISOLONE 125 MG INJ IV SCH ×2 (08:41→20:08)
[2020-07-19] MEDS: LIDOCAINE 4% PATCH TOP SCH (08:41)
[2020-07-19] MEDS: ZINC SULFATE 220 MG CAP PO SCH (08:42)
--- NOTE | 2020-07-19 11:26 | P.CNS ---
Date of Consult: 07/19/20 Reason for Consult: Respiratory failure from coronal wire lather Complaint: Respiratory failure from [place] virus History of Present Illness: Patient is 85 years of age multiple medical problems admitted with altered mental status he has been hypotensive hypoxic he still requiring a lot of oxygen his carr[place] virus positive very alert responsive cooperative Allergies No Known Allergies Allergy (Verified 07/03/20 22:36) Home Medications: Amlodipine [Norvasc] 10 mg PO DAILY 07/04/20 Carvedilol [Coreg] 12.5 mg PO DAILY 07/04/20 Chlorthalidone [Hygroton 25mg Tab] 25 mg PO DAILY 07/04/20 Clopidogrel Bisulfate [Plavix] 75 mg PO DAILY 07/04/20 Glipizide [Glipizide ER] 5 mg PO BID 07/04/20 Lovastatin 20 mg PO DAILY 07/04/20 Quetiapine Fumarate [Seroquel] 25 mg PO BID 07/04/20 Tamsulosin [Flomax] 0.4 mg PO BEDTIME 07/04/20 - Past Medical/Surgical History Diabetic: Yes -: HTN -: DM Type 2 -: GERD -: HYPERLIPIDEMIA -: BPH -: KIDNEY PROBLEMS -: dementia -: [place]Y -: APPENDECTOMY - Family History Brother Medical History: Heart disease, Hypertension Sister Medical History: Heart disease, Hypertension - Social History Smoking Status: Unknown if ever smoked Alcohol use: No CD- Drugs: No Caffeine use: No Place of Residence: Home Review of Systems Respiratory: Shortness of Breath Physical Examination Temp Pulse Resp BP Pulse Ox 97.5 F 72 17 178/74 H 97 07/19/20 08:00 07/19/20 08:40 07/19/20 08:00 07/19/20 08:40 07/19/20 08:00 General: Alert, Cooperative Respiratory: Clear to auscultation bilaterally Cardiovascular: No edema, Regular rate/rhythm - Problems (1) Acute respiratory failure due to severe acute respiratory syndrome coronavirus 2 (SARS-CoV-2) infection Current Visit: Yes Status: Acute Plan: Patient is 85 years of age admitted with respiratory failure from carr[place] virus oxygen requirements are declining continue to wean down on the FiO2 white count declining kidney function is improving patient has had some ivermectin patient's cultures are negative patient has bilateral pneumonia recommend IV Lasix white count is declining reduce dose of Solu-Medrol
[2020-07-19] MEDS: FUROSEMIDE 40 MG/4 ML VIAL IV SCH (12:00)
--- NOTE | 2020-07-19 14:53 | P.PN ---
Subjective Date of Service: 07/19/20 Chief Complaint: Respiratory failure from carrillo virus Physical Examination - Vital Signs Temperature: 97.2 F Blood Pressure: 164/77 Pulse: 59 Respirations: 16 Pulse Ox (%): 96 - Studies Medications List Reviewed: Yes Assessment & Plan Physician Review Additional Text: Physical Exam: Patient is alert. Dementia noted. Heart: normal rythym Lung: he is nonrebreather. GI: soft, nontender, nondistended EXT: good range of motion. Impression: Acute respiratory failure with hypoxia secondary to bilateral COVID 19 pneumonia Alzheimer dementia HTN DM Type 2 BPH Hyperlipidemia Plan: Acute respiratory failure with hypoxia secondary to bilateral COVID 19 pneumonia: Slow improvement noted. Patient continues to be more alert. Will have respiratory try to wean off non-rebreather and trial on nasal cannula. Physical therapy ordered. Encourage incentive spirometer. Discussed with family. Family wants for patient to return back at discharge. Continue with IV steroids and supplementation. Anticipate home in the next 72 hours. Family requests repeat COVID. Alzheimer dementia: Overall stable. Continue with mood stabilizers. HTN: Continue medication DM Type 2: Continue Accu-Cheks. Continue to adjust medication. Maintain adequate control of blood sugar. BPH: Continue medication Hyperlipidemia: continue medication Time Spent Managing Pts Care (In Minutes): 55
[2020-07-19] MEDS: ATORVASTATIN 10 MG TAB PO SCH (20:09)
[2020-07-19] MEDS: TAMSULOSIN 0.4 MG SR CAP PO SCH (20:09)
[2020-07-19] MEDS: MELATONIN 5 MG TABLET PO SCH (20:09)
[2020-07-19] MEDS: APIXABAN 5 MG TABLET PO SCH (20:09)
[2020-07-20] MEDS: LIDOCAINE 4% PATCH TOP SCH (08:48)
[2020-07-20] MEDS: FOLIC ACID 1 MG TABLET PO SCH (08:49)
[2020-07-20] MEDS: CLOPIDOGREL 75 MG TABLET PO SCH (08:49)
[2020-07-20] MEDS: ASCORBIC ACID 500 MG TABLET PO SCH ×3 (08:49→20:14)
[2020-07-20] MEDS: PANTOPRAZOLE 40MG TABLET PO SCH ×2 (08:49→16:34)
[2020-07-20] MEDS: APIXABAN 5 MG TABLET PO SCH ×2 (08:49→20:12)
[2020-07-20] MEDS: VITAMIN D 1000 UNIT TAB PO SCH (08:49)
[2020-07-20] MEDS: THIAMINE HCL 100 MG TABLET PO SCH ×2 (08:49→20:13)
[2020-07-20] MEDS: GLIPIZIDE S.A. 5 MG TAB PO SCH ×2 (08:50→16:34)
[2020-07-20] MEDS: AMLODIPINE 10 MG TAB PO SCH (08:50)
[2020-07-20] MEDS: ZINC SULFATE 220 MG CAP PO SCH (08:50)
[2020-07-20] MEDS: QUETIAPINE 25 MG TAB PO SCH ×2 (08:50→20:14)
[2020-07-20] MEDS: ENSURE HIGH PROTEIN 237 ML CAN PO SCH ×2 (08:51→21:00)
[2020-07-20] MEDS: carvediloL 12.5 MG TAB PO SCH (08:51)
[2020-07-20] MEDS: METHYLPREDNISOLONE 125 MG INJ IV SCH ×2 (08:51→20:13)
[2020-07-20] MEDS: FUROSEMIDE 40 MG/4 ML VIAL IV SCH (08:51)
--- NOTE | 2020-07-20 10:46 | P.PN ---
Subjective Date of Service: 07/20/20 Chief Complaint: Respiratory failure from carrillo virus Subjective: Improving (Patient is improving oxygen requirements are somewhat better although he is on high-flow and non-rebreather) Review of Systems General: Weakness Respiratory: Shortness of Breath Physical Examination - Vital Signs Temperature: 98.4 F Blood Pressure: 158/78 Pulse: 61 Respirations: 20 Pulse Ox (%): 98 - Studies Medications List Reviewed: Yes Assessment & Plan - Problems (Diagnosis) (1) Acute respiratory failure due to severe acute respiratory syndrome coron avirus 2 (SARS-CoV-2) infection Current Visit: Yes Status: Acute Plan: Respiratory failure continue to titrate oxygen down blood pressure mildly elevated continue with Lasix labs reviewed blood sugar is reasonably controlled
--- NOTE | 2020-07-20 16:05 | P.PN ---
Subjective Date of Service: 07/20/20 Chief Complaint: Respiratory failure from carrillo virus Subjective: Other (slow improvement noted. remains on nonrebreather.) Physical Examination - Vital Signs Temperature: 97.9 F Blood Pressure: 150/70 Pulse: 60 Respirations: 23 Pulse Ox (%): 93 - Studies Medications List Reviewed: Yes Assessment & Plan Discharge Plan: Home Plan to discharge in: Greater than 2 days Physician Review Additional Text: Physical Exam: Patient is alert. Dementia noted. Heart: normal rythym Lung: he is on nonrebreather. GI: soft, nontender, nondistended EXT: good range of motion. Impression: Acute respiratory failure with hypoxia secondary to bilateral COVID 19 pneumonia Alzheimer dementia HTN DM Type 2 BPH Hyperlipidemia Plan: Acute respiratory failure with hypoxia secondary to bilateral COVID 19 pneumonia: Slow improvement noted. Patient continues to be more alert. Will have respiratory continue to try to wean off non-rebreather and trial on nasal cannula. Physical therapy ordered. Encourage incentive spirometer. Will discuss with Pulmonary. Discussed with family. Family wants for patient to return back at discharge. Continue with IV steroids and supplementation. Anticipate home in the next 72 hours. Family requests repeat COVID. Alzheimer dementia: Overall stable. Continue with mood stabilizers. HTN: Continue medication DM Type 2: Continue Accu-Cheks. Continue to adjust medication. Maintain adequate control of blood sugar. BPH: Continue medication Hyperlipidemia: continue medication Time Spent Managing Pts Care (In Minutes): 55
[2020-07-20] MEDS: LACTULOSE 20 GM/30 ML UCUP PO PRN (17:26)
[2020-07-20] MEDS: MELATONIN 5 MG TABLET PO SCH (20:12)
[2020-07-20] MEDS: ATORVASTATIN 10 MG TAB PO SCH (20:12)
[2020-07-20] MEDS: TAMSULOSIN 0.4 MG SR CAP PO SCH (20:12)
[2020-07-21 07:40] LABS: Absolute Lymphocytes (CBC) 0.5 K/uL (0.7-4.9); Basophils % 0.2 % (0-1.3); Hematocrit 37.6 % (39.6-49.0); Lymphocytes % 2.9 % (15.3-44.8); MPV 9.6 fL (7.6-11.3); RBC Red Blood Cell Count 4.26 M/uL (4.33-5.43)
[2020-07-21 08:03] LABS: C-Reactive Protein 8.15 mg/L (<3.00); Potassium 4.5 mmol/L (3.5-5.1)
[2020-07-21] MEDS: PANTOPRAZOLE 40MG TABLET PO SCH ×2 (08:59→16:44)
[2020-07-21] MEDS: DOCUSATE NA 100 MG CAP PO SCH (08:59)
[2020-07-21] MEDS: FOLIC ACID 1 MG TABLET PO SCH (08:59)
[2020-07-21] MEDS: carvediloL 12.5 MG TAB PO SCH (08:59)
[2020-07-21] MEDS: METHYLPREDNISOLONE 125 MG INJ IV SCH ×2 (08:59→20:02)
[2020-07-21] MEDS: ASCORBIC ACID 500 MG TABLET PO SCH ×3 (08:59→20:01)
[2020-07-21] MEDS: CLOPIDOGREL 75 MG TABLET PO SCH (08:59)
[2020-07-21] MEDS: VITAMIN D 1000 UNIT TAB PO SCH (09:00)
[2020-07-21] MEDS: THIAMINE HCL 100 MG TABLET PO SCH ×2 (09:00→20:01)
[2020-07-21] MEDS: ZINC SULFATE 220 MG CAP PO SCH (09:00)
[2020-07-21] MEDS: LIDOCAINE 4% PATCH TOP SCH (09:00)
[2020-07-21] MEDS: FUROSEMIDE 40 MG/4 ML VIAL IV SCH (09:00)
[2020-07-21] MEDS: QUETIAPINE 25 MG TAB PO SCH ×2 (09:00→20:00)
[2020-07-21] MEDS: GLIPIZIDE S.A. 5 MG TAB PO SCH ×2 (09:00→16:43)
[2020-07-21] MEDS: ENSURE HIGH PROTEIN 237 ML CAN PO SCH ×2 (09:01→20:01)
[2020-07-21] MEDS: APIXABAN 5 MG TABLET PO SCH ×2 (09:05→20:01)
[2020-07-21] MEDS: AMLODIPINE 10 MG TAB PO SCH (09:07)
[2020-07-21 10:32] LABS: Blood Morphology Comment NOT SEEN (NOT SEEN); Platelet Estimate ADEQ
--- NOTE | 2020-07-21 11:42 | RAD REPORT ---
EXAM DESCRIPTION: RAD - Chest Single View - 07/21/2020 7:20 am CLINICAL HISTORY: follow up covid Chest pain. COMPARISON: Chest Single View dated 07/17/2020; Chest Single View dated 07/06/2020; Chest Single View d ated 07/03/2020; Chest Single View dated 01/10/2019 FINDINGS: Portable technique limits examination quality. Extensive bilateral pulmonary opacities are again noted, mildly improved since the comparative study. The heart is mildly enlarged in size. No displaced fractures. IMPRESSION: Mild improvement lung aeration since comparative study.
--- NOTE | 2020-07-21 12:20 | P.PN ---
Subjective Date of Service: 07/21/20 Chief Complaint: Respiratory failure from carrillo virus Subjective: Doing well, Demented Physical Examination - Vital Signs Temperature: 96.9 F Blood Pressure: 168/82 Pulse: 73 Respirations: 23 Pulse Ox (%): 92 - Studies Medications List Reviewed: Yes Assessment & Plan Discharge Plan: Home Plan to discharge in: Greater than 2 days Physician Review Additional Text: Initial chief complaint: Shortness of breath secondary to COVID 19 Physical Exam: Patient is alert. Dementia noted. Heart: normal rythym Lung: he is on nonrebreather. GI: soft, nontender, nondistended EXT: good range of motion. Impression: Acute respiratory failure with hypoxia secondary to bilateral COVID 19 pneumonia Alzheimer dementia HTN DM Type 2 BPH Hyperlipidemia Plan: Acute respiratory failure with hypoxia secondary to bilateral COVID 19 pneumonia: Patient continues to show slow improvement. Chest x-ray shows improvement. Patient on BiPAP at 55% FiO2. Respiratory to continue to wean off. Patient had been on non-rebreather. Plan is for high-flow then transition to nasal cannula. Pulmonology added Lasix. Physical therapy ordered. Encourage incentive spirometer. Family wants for patient to return back at discharge. Family does not desire for him to go to a skilled facility. Continue with IV steroids and supplementation. Anticipate home in the next 72 hr. I will turn the service over to the hospitalist team tomorrow. I will go plan of care with him. Alzheimer dementia: Overall stable. Continue with mood stabilizers. HTN: Continue medication DM Type 2: Continue Accu-Cheks. Continue to adjust medication. Maintain adequate control of blood sugar. BPH: Continue medication Hyperlipidemia: continue medication Time Spent Managing Pts Care (In Minutes): 55
[2020-07-21] MEDS: MELATONIN 5 MG TABLET PO SCH (20:00)
[2020-07-21] MEDS: TAMSULOSIN 0.4 MG SR CAP PO SCH (20:00)
[2020-07-21] MEDS: ATORVASTATIN 10 MG TAB PO SCH (20:00)
[2020-07-22] MEDS: QUETIAPINE 25 MG TAB PO SCH ×2 (09:00→20:46)
[2020-07-22] MEDS: CLOPIDOGREL 75 MG TABLET PO SCH (09:00)
[2020-07-22] MEDS: DOCUSATE NA 100 MG CAP PO SCH (09:00)
[2020-07-22] MEDS: PANTOPRAZOLE 40MG TABLET PO SCH ×2 (09:00→17:15)
[2020-07-22] MEDS: AMLODIPINE 10 MG TAB PO SCH (09:01)
[2020-07-22] MEDS: ZINC SULFATE 220 MG CAP PO SCH (09:01)
[2020-07-22] MEDS: THIAMINE HCL 100 MG TABLET PO SCH ×2 (09:01→20:46)
[2020-07-22] MEDS: FOLIC ACID 1 MG TABLET PO SCH (09:01)
[2020-07-22] MEDS: VITAMIN D 1000 UNIT TAB PO SCH (09:01)
[2020-07-22] MEDS: carvediloL 12.5 MG TAB PO SCH (09:01)
[2020-07-22] MEDS: ASCORBIC ACID 500 MG TABLET PO SCH ×3 (09:02→20:46)
[2020-07-22] MEDS: ENSURE HIGH PROTEIN 237 ML CAN PO SCH (09:02)
[2020-07-22] MEDS: METHYLPREDNISOLONE 125 MG INJ IV SCH ×2 (09:02→20:47)
[2020-07-22] MEDS: FUROSEMIDE 40 MG/4 ML VIAL IV SCH (09:02)
[2020-07-22] MEDS: APIXABAN 5 MG TABLET PO SCH ×2 (09:02→20:46)
[2020-07-22] MEDS: LIDOCAINE 4% PATCH TOP SCH (09:03)
[2020-07-22] MEDS: GLIPIZIDE S.A. 5 MG TAB PO SCH (09:07)
--- NOTE | 2020-07-22 12:13 | P.PN ---
Subjective Date of Service: 07/22/20 Chief Complaint: Respiratory failure from carrillo virus Patient is still requiring high concentrations of oxygen is currently on BiPAP feeling very weak short of breath Review of Systems General: Weakness Respiratory: Shortness of Breath Physical Examination - Vital Signs Temperature: 96.9 F Blood Pressure: 140/68 Pulse: 74 Respirations: 18 Pulse Ox (%): 91 - Physical Exam General: Alert, Moderate distress - Studies Medications List Reviewed: Yes Assessment & Plan - Problems (Diagnosis) (1) Acute respiratory failure due to severe acute respiratory syndrome coronavirus 2 (SARS-CoV-2) infection Current Visit: Yes Status: Acute Plan: Respiratory failure from carrillo virus patient's renal function is worse white count is also elevated cultures are negative start on some IV fluids very poor appetite patient is not eating well start on tube feeds patient has interstitial changes on chest x-ray Physician Review Additional Text: Initial chief complaint: Shortness of breath secondary to COVID 19 Physical Exam: Patient is alert. Dementia noted. Heart: normal rythym Lung: he is on nonrebreather. GI: soft, nontender, nondistended EXT: good range of motion. Impression: Acute respiratory failure with hypoxia secondary to bilateral COVID 19 pneumonia Alzheimer dementia HTN DM Type 2 BPH Hyperlipidemia Plan: Acute respiratory failure with hypoxia secondary to bilateral COVID 19 pneumonia: Patient continues to show slow improvement. Chest x-ray shows improvement. Patient on BiPAP at 55% FiO2. Respiratory to continue to wean off. Patient had been on non-rebreather. Plan is for high-flow then transition to nasal cannula. Pulmonology added Lasix. Physical therapy ordered. Encourage incentive spirometer. Family wants for patient to return back at discharge. Family does not desire for him to go to a skilled facility. Continue with IV steroids and supplementation. Anticipate home in the next 72 hr. I will turn the service over to the hospitalist team tomorrow. I will go plan of care with him. Alzheimer dementia: Overall stable. Continue with mood stabilizers. HTN: Continue medication DM Type 2: Continue Accu-Cheks. Continue to adjust medication. Maintain adequate control of blood sugar. BPH: Continue medication Hyperlipidemia: continue medication
[2020-07-22] MEDS ORDERED: NACHLORIDE 0.45% 1,000 ML IV SCH (13:00)
[2020-07-22] MEDS ORDERED: GLUCERNA SHAKE 237 ML CAN PO SCH ×2 (14:00→21:00)
[2020-07-22] MEDS ORDERED: GLUCERNA 1.2 CAL 1,000 ML BOT FT SCH (17:00)
[2020-07-22] MEDS: ACETAMINOPHEN 500 MG TAB PO PRN (20:45)
[2020-07-22] MEDS: ATORVASTATIN 10 MG TAB PO SCH (20:46)
[2020-07-22] MEDS: TAMSULOSIN 0.4 MG SR CAP PO SCH (20:46)
[2020-07-22] MEDS: MELATONIN 5 MG TABLET PO SCH (20:46)
[2020-07-23 04:22] LABS: Hematocrit 32.9 % (39.6-49.0); MPV 9.7 fL (7.6-11.3); RBC Red Blood Cell Count 3.82 M/uL (4.33-5.43)
[2020-07-23 04:46] LABS: Potassium 4.1 mmol/L (3.5-5.1)
[2020-07-23] MEDS: GLUCERNA SHAKE 237 ML CAN PO SCH ×3 (08:00→16:31)
[2020-07-23] MEDS: LIDOCAINE 4% PATCH TOP SCH (08:26)
[2020-07-23] MEDS: carvediloL 12.5 MG TAB PO SCH (08:27)
[2020-07-23] MEDS: AMLODIPINE 10 MG TAB PO SCH (08:27)
[2020-07-23] MEDS: ZINC SULFATE 220 MG CAP PO SCH (08:27)
[2020-07-23] MEDS: FUROSEMIDE 40 MG/4 ML VIAL IV SCH (08:27)
[2020-07-23] MEDS: VITAMIN D 1000 UNIT TAB PO SCH (08:27)
[2020-07-23] MEDS: METHYLPREDNISOLONE 125 MG INJ IV SCH ×2 (08:28→20:25)
[2020-07-23] MEDS: QUETIAPINE 25 MG TAB PO SCH ×2 (08:28→20:24)
[2020-07-23] MEDS: FOLIC ACID 1 MG TABLET PO SCH (08:28)
[2020-07-23] MEDS: CLOPIDOGREL 75 MG TABLET PO SCH (08:28)
[2020-07-23] MEDS: ASCORBIC ACID 500 MG TABLET PO SCH ×3 (08:28→20:24)
[2020-07-23] MEDS: PANTOPRAZOLE 40MG TABLET PO SCH ×2 (08:28→16:24)
[2020-07-23] MEDS: APIXABAN 5 MG TABLET PO SCH (08:29)
[2020-07-23] MEDS: THIAMINE HCL 100 MG TABLET PO SCH ×2 (08:29→20:24)
[2020-07-23] MEDS: DOCUSATE NA 100 MG CAP PO SCH (08:29)
[2020-07-23] MEDS ORDERED: CEFTRIAXONE 1 GM/NS 50 ML 1 GM/50 ML BAG IV SCH (09:00)
--- NOTE | 2020-07-23 12:38 | P.PN ---
Subjective Date of Service: 07/23/20 Chief Complaint: Respiratory failure from carrillo virus Not doing well his kidney function is worse still very hypoxic agitated Review of Systems General: Weakness Respiratory: Cough, Shortness of Breath Physical Examination - Vital Signs Temperature: 97 F Blood Pressure: 164/78 Pulse: 84 Respirations: 18 Pulse Ox (%): 95 - Studies Medications List Reviewed: Yes Assessment & Plan - Problems (Diagnosis) (1) Acute respiratory failure due to severe acute respiratory syndrome coronavirus 2 (SARS-CoV-2) infection Current Visit: Yes Status: Acute Plan: Respiratory failure kidney function is worse Dc Lasix start on half-normal saline abdominal CT did not show any hydronephrosis white count elevated start on IV antibiotics Rocephin Diflucan for fungal prophylaxis Physician Review Additional Text: Initial chief complaint: Shortness of breath secondary to COVID 19 Physical Exam: Patient is alert. Dementia noted. Heart: normal rythym Lung: he is on nonrebreather. GI: soft, nontender, nondistended EXT: good range of motion. Impression: Acute respiratory failure with hypoxia secondary to bilateral COVID 19 pneumonia Alzheimer dementia HTN DM Type 2 BPH Hyperlipidemia Plan: Acute respiratory failure with hypoxia secondary to bilateral COVID 19 pneumonia: Patient continues to show slow improvement. Chest x-ray shows impr ovement. Patient on BiPAP at 55% FiO2. Respiratory to continue to wean off. Patient had been on non-rebreather. Plan is for high-flow then transition to nasal cannula. Pulmonology added Lasix. Physical therapy ordered. Encourage incentive spirometer. Family wants for patient to return back at discharge. Family does not desire for him to go to a skilled facility. Continue with IV steroids and supplementation. Anticipate home in the next 72 hr. I will turn the service over to the hospitalist team tomorrow. I will go plan of care with him. Alzheimer dementia: Overall stable. Continue with mood stabilizers. HTN: Continue medication DM Type 2: Continue Accu-Cheks. Continue to adjust medication. Maintain a dequate control of blood sugar. BPH: Continue medication Hyperlipidemia: continue medication
[2020-07-23] MEDS: NACHLORIDE 0.45% 1,000 ML IV SCH (12:58)
[2020-07-23] MEDS: FLUCONAZOLE 100 MG TAB PO SCH (13:57)
--- NOTE | 2020-07-23 14:32 | P.PN ---
Subjective Date of Service: 07/22/20 Subjective: No new changes, No C/O voiced, Improving Review of Systems 10-point ROS is otherwise unremarkable Physical Examination - Vital Signs Temperature: 97 F Blood Pressure: 164/78 Pulse: 84 Respirations: 18 Pulse Ox (%): 95 - Physical Exam General: Alert, In no apparent distress, Demented Respiratory: Clear to auscultation bilaterally, Normal air movement Cardiovascular: Regular rate/rhythm, Normal S1 S2, No murmurs Gastrointestinal: Normal bowel sounds, Soft and benign, Non-distended, No tenderness Musculoskeletal: No clubbing, No swelling, No tenderness Neurological: Sensation intact, Cranial nerves 3-12 intact - Studies Medications List Reviewed: Yes Assessment & Plan - Problems (Diagnosis) (1) Pneumonia due to COVID-19 virus Current Visit: Yes Status: Acute (2) DOMONIQUE (acute kidney injury) Current Visit: Yes Status: Acute (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 Continue supportive care; on BIPAP support; 90% FiO2. Hopefully, we will be able to continue to wean down the oxygen slowly 2. IV steroids; may wean down over the next few days his symptoms continued to improve 3. Patient is a do not resuscitate 4. Monitor labs closely; DOMONIQUE; refused dobhoff &pulling at it; encourage fluids and shakes; will continue with IVFs 5. GI and DVT prophylaxis Discharge Plan: Home Plan to discharge in: Greater than 2 days - Advance Directives Does patient have a Living Will: No Does patient have a Durable POA for Healthcare: No - Code Status/Comfort Care Code Status: Do Not Attempt Resuscitat Critical Care: No Time Spent Managing PTS Care (In Minutes): 35
--- NOTE | 2020-07-23 14:37 | P.PN ---
Subjective Date of Service: 07/23/20 Subjective: Improving Oxygen requirements have improved. Renal function has worsened. Patient was large bloody stool today so will stopped the Eliquis. Hold off on Plavix as well. Probably worsening uremia secondary to the GI bleeding. 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 Ahuja. Physical Examination - Vital Signs Temperature: 97 F Blood Pressure: 164/78 Pulse: 84 Respirations: 18 Pulse Ox (%): 95 - Physical Exam General: Confused Respiratory: Rhonchi/gurgles Cardiovascular: Regular rate/rhythm, Normal S1 S2, Systolic murmur Gastrointestinal: Normal bowel sounds, Soft and benign, Non-distended, No tenderness, No masses Musculoskeletal: No clubbing, No swelling, No contractures - Studies Medications List Reviewed: Yes Assessment & Plan - Problems (Diagnosis) (1) Pneumonia due to COVID-19 virus Current Visit: Yes Status: Acute (2) DOMONIQUE (acute kidney injury) Current Visit: Yes Status: Acute (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 Continue supportive care; on BIPAP support; 90% FiO2. Hopefully, we will be able to continue to wean down the oxygen slowly 2. IV steroids; may wean down over the next few days his symptoms continued to improve 3. Patient is a do not resuscitate 4. Monitor labs closely; DOMONIQUE; refused dobhoff &pulling at it; encourage fluids and shakes; will continue with IVFs 5. GI and DVT prophylaxis - Advance Directives Does patient have a Living Will: No Does patient have a Durable POA for Healthcare: No - Code Status/Comfort Care Code Status: Do Not Attempt Resuscitat
[2020-07-23] MEDS: ATORVASTATIN 10 MG TAB PO SCH (20:24)
[2020-07-23] MEDS: ACETAMINOPHEN 500 MG TAB PO PRN (20:24)
[2020-07-23] MEDS: MELATONIN 5 MG TABLET PO SCH (20:24)
[2020-07-23] MEDS: TAMSULOSIN 0.4 MG SR CAP PO SCH (20:24)
[2020-07-23 21:34] LABS: Hematocrit 30.6 % (39.6-49.0)
[2020-07-24] MEDS: NACHLORIDE 0.45% 1,000 ML IV SCH ×3 (03:50→21:57)
[2020-07-24 04:02] LABS: RBC Red Blood Cell Count 3.3 M/uL (4.33-5.43)
[2020-07-24 04:03] LABS: Hematocrit 29.3 % (39.6-49.0); MPV 9.5 fL (7.6-11.3); RBC Red Blood Cell Count 3.38 M/uL (4.33-5.43)
[2020-07-24 04:14] LABS: Protime INR 1.28
[2020-07-24 05:08] LABS: Ferritin 467.7 ng/mL (26-388); Folic Acid, (Folate) 18.3 ng/mL (3.1-17.5); Magnesium 2.4 mg/dL (1.8-2.4); Potassium 4.2 mmol/L (3.5-5.1)
--- NOTE | 2020-07-24 07:10 | RAD REPORT ---
EXAM DESCRIPTION: RAD - Chest Single View - 07/24/2020 5:50 am CLINICAL HISTORY: poss pneumonia, shortness of breath COMPARISON: July 21 portable chest, lung base images July 23 CT abdomen TECHNIQUE: AP portable chest image was obtained 07/24/2020 5:50 am . FINDINGS: Lung volumes are low. Airspace opacification is scattered in the right lung field. More de nse airspace opacification is present in the mid and lower left lung field. Left heart border is obsc ured and there is left costophrenic angle blunting present. Loop recorder overlies the left chest. Tr achea is midline. Patient is rotated. Heart size appears normal for exam limitations. Vasculature mildly prominent due to low lung volumes . No pneumothorax. Left pleural effusion cannot be excluded. No acute bony abnormality seen. No acute aortic findings suspected. IMPRESSION: Lower left lung field pneumonia. Scattered airspace opacities elsewhere in the chest are present. In the current clinical environment, COVID-19 pneumonia cannot be excluded.
[2020-07-24] MEDS: METHYLPREDNISOLONE 125 MG INJ IV SCH ×2 (08:47→21:41)
[2020-07-24] MEDS: LIDOCAINE 4% PATCH TOP SCH (08:47)
[2020-07-24] MEDS: CEFTRIAXONE/SWI 1gm 1 GM/10 ML SYR IV SCH (08:47)
[2020-07-24] MEDS: FLUCONAZOLE 100 MG TAB PO SCH (08:53)
[2020-07-24] MEDS: ZINC SULFATE 220 MG CAP PO SCH (08:54)
[2020-07-24] MEDS: VITAMIN D 1000 UNIT TAB PO SCH (08:54)
[2020-07-24] MEDS: AMLODIPINE 10 MG TAB PO SCH (08:54)
[2020-07-24] MEDS: ASCORBIC ACID 500 MG TABLET PO SCH ×3 (08:54→21:42)
[2020-07-24] MEDS: THIAMINE HCL 100 MG TABLET PO SCH ×2 (08:54→21:42)
[2020-07-24] MEDS: DOCUSATE NA 100 MG CAP PO SCH (08:54)
[2020-07-24] MEDS: PANTOPRAZOLE 40MG TABLET PO SCH ×2 (08:54→16:54)
[2020-07-24] MEDS: GLUCERNA SHAKE 237 ML CAN PO SCH ×3 (08:55→16:56)
[2020-07-24] MEDS: FOLIC ACID 1 MG TABLET PO SCH (08:55)
[2020-07-24] MEDS: carvediloL 12.5 MG TAB PO SCH (08:55)
[2020-07-24] MEDS: QUETIAPINE 25 MG TAB PO SCH ×2 (08:55→21:42)
--- NOTE | 2020-07-24 10:11 | RAD REPORT ---
EXAM DESCRIPTION: CT - Abdomen Pelvis Wo Contrast - 07/23/2020 10:05 pm [facility]: CT ABDOMEN PELVIS WITHOUT IV CONTRAST CLINICAL HISTORY: Gi bleeding. COMPARISON: None. TECHNIQUE: Serial axial CT images were obtained from above the diaphragm through the pubic symphysis without administration of intravenous or oral contrast. All CT scans are performed using dose optimization techniques as appropriate, including automated exp osure control and/or standardized protocols, where dose is adjusted for indication for exam and body habitus. FINDINGS: Thoracic: Prominent interstitial thickening in the lung bases. Questionable small amount o f pneumomediastinum/pneumopericardium, partially imaged. Hepatobiliary: No obvious concerning hepatic lesion identified in the absence of intravenous contrast . A few tiny calcified granulomata in the liver. The hepatic and portal veins are patent. Calcified s tones in the gallbladder. No gallbladder wall thickening. No biliary ductal dilatation. Pancreas: Unremarkable. Spleen: Unremarkable. Gastrointestinal: No evidence of bowel obstruction or perienteric inflammation. The appendix is js l. Moderate to large amount of fecal material in the rectum. Mild to moderate amount of fecal materia l throughout the colon. Mild pancolonic diverticulosis. Adrenals: No abnormality identified in either adrenal gland. Renal: Interpolar right renal posterior simple cyst measures 5.9 cm. Inferior right renal 4.1 cm homo geneous minimally complex lesion (Hounsfield units 18). Superior left renal 1.6 cm hypodensity with a thin septation. Possible few smaller hypodensities in the left kidney. No hydronephrosis or urolithi asis. Bladder/Reproductive: Unremarkable appearance of the urinary bladder by CT technique. Mild prostatome aldair. Vascular/Lymphatics: No lymphadenopathy identified by CT size criteria. Abdominal aorta is normal in caliber. Prominent calcific atherosclerosis. Musculoskeletal: No concerning osseous lesion identified. Osteopenia. Multifocal osseous degenerative changes. Tiny left-sided inguinal hernia containing only fat. Fluid / peritoneum: No significant free fluid. No free intraperitoneal air identified. IMPRESSION: 1. Moderate to large amount of fecal material in the rectum. 2. Mild colonic diverticulosis with no evidence of acute diverticulitis. 3. Cholelithiasis. 4. Partially imaged air density in the pericardium/mediastinum, with differential including bronchi oles within atelectatic lung versus pneumomediastinum/pneumopericardium. Recommend correlation with c hest radiograph or chest CT. Electronically signed by: Elsa Guo MD 07/23/2020 10:30 PM [employer]ERATE NEEDS TEACHER Due to temporary technical issues with the PACS/Fluency reporting system, reports are being signed by the in house radiologist without review as a courtesy to ensure prompt reporting. The interpreting r adiologist is fully responsible for the content of the report.
[2020-07-24] MEDS ORDERED: ZIPRASIDONE MESYLA 20 MG/VIAL IM PRN (11:58)
[2020-07-24] MEDS ORDERED: WATER FOR INJ,STERILE 10 ML IM PRN (11:58)
--- NOTE | 2020-07-24 11:59 | P.PN ---
Subjective Date of Service: 07/24/20 Chief Complaint: Respiratory failure from carrillo virus Patient is slightly better still continues to be very agitated oxygen requirements have decreased Review of Systems is unable to be obtained Physical Examination - Vital Signs Temperature: 96.8 F Blood Pressure: 150/70 Pulse: 90 Respirations: 16 Pulse Ox (%): 97 - Physical Exam General: Alert, Moderate distress Respiratory: Clear to auscultation bilaterally, Diminished Cardiovascular: No edema, Normal S1 S2 - Studies Medications List Reviewed: Yes Assessment & Plan - Problems (Diagnosis) (1) Acute respiratory failure due to severe acute respiratory syndrome coronavirus 2 (SARS-CoV-2) infection Current Visit: Yes Status: Acute Plan: Respiratory failure from carrillo virus patient's renal function is improving still continues to remain very agitated still hypoxic white count is elevated apparently he has some GI bleeding increase IV fluids continue to monitor hemoglobin angio do not p.r.n. poor appetite continue to wean down his oxygen
[2020-07-24] MEDS: ACETAMINOPHEN 500 MG TAB PO PRN (13:36)
[2020-07-24] MEDS: BENZONATATE 100 MG CAP PO PRN (21:41)
[2020-07-24] MEDS: ATORVASTATIN 10 MG TAB PO SCH (21:42)
[2020-07-24] MEDS: TAMSULOSIN 0.4 MG SR CAP PO SCH (21:42)
--- NOTE | 2020-07-25 00:15 | CON ---
Date of Consultation: 07/24/2020 Subjective: The patient is an 85-year-old male who has been admitted to the hospital since the 04 of July. He was originally admitted from the [facility] with worsening altered mental status an d respiratory distress. He was found to have COVID-19 pneumonia and has been in the hospital since t hat time. His hospital course has been complicated by acute renal failure because of which nephrolog y consult is being requested. He is also being treated for COVID-19 pneumonia as well as his respira tory status is being closely monitored. Past Medical History: Significant for history of hypertension, type 2 diabetes, GERD, hyperlipidemia , BPH, history of CKD, dementia, bilateral knee replacement, and appendectomy. Family History: Significant for history of heart disease in the brother and hypertension. Social History: No history of smoking, alcohol, or drug use reported. He was living at home. Review of Systems: Unable to be obtained at this time. Physical Examination: Vital Signs: Showing temperature of 97.1, pulse rate of 68, respiratory rate of 20, and blood pressu re 142/66. General: He appears in no acute distress. He is on nasal cannula oxygen. Lungs: Clear to auscultation. Lungs revealed bilateral creps with occasional rhonchi. Abdomen: Soft and nontender. Extremities: Showed no evidence of edema. Laboratory Data: At this time are showing sodium of 132, potassium of 4.2, chloride of 94, BUN of 10 7, and creatinine of 2.23. Calcium was low at 8 and phosphorus was 3. His ferritin levels were elev ated. CBC showing WBC count of 18.2, hematocrit of 29.3 and hemoglobin of 10. Current Medications: Include normal saline at 100 cc an hour, Tylenol, amlodipine 10 mg a day, vitam in C, atorvastatin, carvedilol, Rocephin, fluconazole, folic acid, Solu-Medrol 80 mg IV b.i.d., Seroq uel 25 mg b.i.d., tamsulosin 0.4 mg at bedtime, thiamine and Geodon p.r.n. Impression: 1.Acute renal failure secondary to acute tubular necrosis, possibly from ongoing GI bleed associated also with concomitant COVID-19. The patient's renal function is slightly better today compared to t he last few days. He has been started on IV fluids, which I will continue for right now. 2.Hyponatremia, possibly secondary to hypovolemia versus SIADH. His volume status looks hypovolemic at this time. We will continue with normal saline and monitor. 3.Acute respiratory failure with hypoxia secondary to COVID-19 pneumonia. The patient is being foll owed by Pulmonary Service and is currently on IV steroids, which is being monitored. 4.Benign prostatic hypertrophy. 5.Alzheimer dementia. 6.Acute gastrointestinal bleed. The patient's hemoglobin is being monitored closely and threshold f or transfusion with hemoglobin of 7. Plan: Overall, patient is clinically stable. I would agree with IV fluids at this time, to monitor renal function, avoid further hypotension and nephrotoxins and follow up closely. Continue all other medications and plan of care. Thank you for allowing us to participate in this patient's care. Ple ase do not hesitate to call us with any questions or concerns. VV/MODL Voice ID: [id number] Report ID: [id number]
[2020-07-25] MEDS: NACHLORIDE 0.45% 1,000 ML IV SCH ×4 (02:01→23:32)
[2020-07-25 03:54] LABS: Hematocrit 27.1 % (39.6-49.0); MPV 9.6 fL (7.6-11.3); RBC Red Blood Cell Count 3.09 M/uL (4.33-5.43)
[2020-07-25 04:03] LABS: Potassium 4.4 mmol/L (3.5-5.1)
[2020-07-25] MEDS: LIDOCAINE 4% PATCH TOP SCH (08:20)
[2020-07-25] MEDS: CEFTRIAXONE/SWI 1gm 1 GM/10 ML SYR IV SCH (08:20)
[2020-07-25] MEDS: VITAMIN D 1000 UNIT TAB PO SCH (08:21)
[2020-07-25] MEDS: FLUCONAZOLE 100 MG TAB PO SCH (08:21)
[2020-07-25] MEDS: PANTOPRAZOLE 40MG TABLET PO SCH ×2 (08:21→16:43)
[2020-07-25] MEDS: METHYLPREDNISOLONE 125 MG INJ IV SCH ×2 (08:21→21:20)
[2020-07-25] MEDS: THIAMINE HCL 100 MG TABLET PO SCH ×2 (08:21→21:19)
[2020-07-25] MEDS: DOCUSATE NA 100 MG CAP PO SCH (08:22)
[2020-07-25] MEDS: ZINC SULFATE 220 MG CAP PO SCH (08:22)
[2020-07-25] MEDS: AMLODIPINE 10 MG TAB PO SCH (08:22)
[2020-07-25] MEDS: carvediloL 12.5 MG TAB PO SCH (08:22)
[2020-07-25] MEDS: QUETIAPINE 25 MG TAB PO SCH ×2 (08:22→21:19)
[2020-07-25] MEDS: FOLIC ACID 1 MG TABLET PO SCH (08:22)
[2020-07-25] MEDS: ASCORBIC ACID 500 MG TABLET PO SCH ×3 (08:22→21:18)
[2020-07-25] MEDS: GLUCERNA SHAKE 237 ML CAN PO SCH ×3 (08:25→16:43)
--- NOTE | 2020-07-25 17:34 | P.PN ---
Date of Service: 07/24/20 Subjective Subjective: Patient was dehydrated but hydration has improved renal function. Patient appears to be doing a little better Physical Examination - Vital Signs Reviewed - Physical Exam General: Alert, In no apparent distress, Demented Respiratory: Clear to auscultation bilaterally, Normal air movement Cardiovascular: Regular rate/rhythm, Normal S1 S2, No murmurs Gastrointestinal: Normal bowel sounds, Soft and benign, Non-distended, No tenderness Musculoskeletal: No clubbing, No swelling, No tenderness Neurological: Sensation intact, Cranial nerves 3-12 intact - Studies Medications List Reviewed: Yes Assessment & Plan - Problems (Diagnosis) (1) Pneumonia due to COVID-19 virus Current Visit: Yes Status: Acute (2) DOMONIQUE (acute kidney injury) Current Visit: Yes Status: Acute (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 Hydration and renal function are improved 2. Need to wean down steroids 3. Patient is a do not resuscitate 4. Advanced diet as tolerated 5. GI and DVT prophylaxis
[2020-07-25] MEDS: TAMSULOSIN 0.4 MG SR CAP PO SCH (21:18)
[2020-07-25] MEDS: ATORVASTATIN 10 MG TAB PO SCH (21:18)
[2020-07-25] MEDS: ACETAMINOPHEN 500 MG TAB PO PRN (21:21)
--- NOTE | 2020-07-25 21:53 | P.PN ---
Date of Service: 07/25/20 Vital Signs Temp Pulse Resp BP Pulse Ox 98.2 F 71 22 H 142/94 H 89 L 07/25/20 19:47 07/25/20 19:47 07/25/20 19:47 07/25/20 19:47 07/25/20 19:47 Medications Acetaminophen (Acetaminophen 500 Mg Tab) 500 mg PO Q6H PRN PRN Reason: TEMP > 100' F Stop: 08/02/20 22:35 Last Admin: 07/25/20 21:21 Dose: 500 mg Documented by: Amlodipine Besylate (Amlodipine 10 Mg Tab) 10 mg PO DAILY [facility] Stop: 08/05/20 09:01 Last Admin: 07/25/20 08:22 Dose: 10 mg Documented by: Ascorbic Acid (Ascorbic Acid 500 Mg Tablet) 500 mg PO TID [facility] Stop: 08/15/20 14:01 Last Admin: 07/25/20 21:18 Dose: 500 mg Documented by: Atorvastatin Calcium (Atorvastatin 10 Mg Tab) 10 mg PO BEDTIME JL Stop: 08/14/20 21:01 Last Admin: 07/25/20 21:18 Dose: 10 mg Documented by: Benzonatate (Benzonatate 100 Mg Cap) 200 mg PO Q4HP PRN PRN Reason: COUGH Stop: 08/08/20 20:11 Last Admin: 07/24/20 21:41 Dose: 200 mg Documented by: Carvedilol (Carvedilol 12.5 Mg Tab) 12.5 mg PO DAILY [facility] Stop: 08/03/20 14:01 Last Admin: 07/25/20 08:22 Dose: 12.5 mg Documented by: Cholecalciferol (Vitamin D 1000 Unit Tab) 2,000 unit PO DAILY [facility] Stop: 08/16/20 09:01 Last Admin: 07/25/20 08:21 Dose: 2,000 unit Documented by: Docusate Sodium (Docusate Na 100 Mg Cap) 100 mg PO DAILY [facility] Last Admin: 07/25/20 08:22 Dose: 100 mg Documented by: Enteral Nutritional Formula (Glucerna Shake 237 Ml Can) 237 ml PO TIDWM [facility] Last Admin: 07/25/20 16:43 Dose: 237 ml Documented by: Fluconazole (Fluconazole 100 Mg Tab) 200 mg PO DAILY [facility]; Protocol Last Admin: 07/25/20 08:21 Dose: 200 mg Documented by: Folic Acid (Folic Acid 1 Mg Tablet) 1 mg PO DAILY [facility] Stop: 08/16/20 09:01 Last Admin: 07/25/20 08:22 Dose: 1 mg Documented by: Ceftriaxone Sodium/Sodium Chloride (Rocephin 1 Gm/10 Ml Swi Ivp) 1 gm in 10 mls @ 600 mls/hr IV DAILY [facility] Last Admin: 07/25/20 08:20 Dose: 10 mls Documented by: Sodium Chloride (Sodium Chloride 0.45%) 1,000 mls @ 100 mls/hr IV .Q10H [facility] Last Admin: 07/25/20 16:51 Dose: 1,000 mls Documented by: Lactulose (Lactulose 20 Gm/30 Ml Ucup) 10 gm PO BID PRN PRN Reason: CONSTIPATION Last Admin: 07/20/20 17:26 Dose: 10 gm Documented by: Lidocaine (Lidocaine 4% Patch) 1 patch TOP DAILY JL Stop: 08/05/20 20:01 Last Admin: 07/25/20 08:20 Dose: 1 patch Documented by: Methylprednisolone Sodium Succinate (Methylprednisolone 125 Mg Inj) 80 mg IV BID [facility] Stop: 08/15/20 14:01 Last Admin: 07/25/20 21:20 Dose: 80 mg Documented by: Pantoprazole Sodium (Pantoprazole 40mg Tablet) 40 mg PO BIDAC [facility]; Protocol Stop: 08/13/20 09:01 Last Admin: 07/25/20 16:43 Dose: 40 mg Documented by: Quetiapine Fumarate (Quetiapine 25 Mg Tab) 25 mg PO BID [facility] Stop: 08/03/20 21:01 Last Admin: 07/25/20 21:19 Dose: 25 mg Documented by: Sodium Chloride (Flush Normal Saline 10 Ml) 10 ml IV BID [facility] Stop: 08/02/20 22:35 Last Admin: 07/25/20 21:17 Dose: 10 ml Documented by: Sodium Chloride (Sodium Chloride 0.9% 10ml Inj) 10 ml IV UD PRN PRN Reason: Diluant Stop: 08/11/20 16:17 Sterile Water (Water For Inj,Sterile 10 Ml) 1.2 ml IM UD PRN PRN Reason: DILUTION OF MED Tamsulosin HCl (Tamsulosin 0.4 Mg Sr Cap) 0.4 mg PO BEDTIME JL Stop: 08/03/20 21:01 Last Admin: 07/25/20 21:18 Dose: 0.4 mg Documented by: Thiamine HCl (Thiamine Hcl 100 Mg Tablet) 200 mg PO BID JL Stop: 08/15/20 21:01 Last Admin: 07/25/20 21:19 Dose: 200 mg Documented by: Zinc Sulfate (Zinc Sulfate 220 Mg Cap) 220 mg PO DAILY JL Stop: 08/16/20 09:01 Last Admin: 07/25/20 08:22 Dose: 220 mg Documented by: Ziprasidone (Ziprasidone Mesyla 20 Mg/Vial) 10 mg IM Q6H PRN PRN Reason: AGITATION Microbiology Results 07/03/20 18:00 Blood - Blood Aerobic Blood Culture - Final No growth in 5 days. 07/03/20 18:00 Blood - Blood Anaerobic Blood Culture - Final No growth in 5 days. 07/03/20 17:00 Blood - Blood Aerobic Blood Culture - Final No growth in 5 days. 07/03/20 17:00 Blood - Blood Anaerobic Blood Culture - Final No growth in 5 days. 07/03/20 18:30 Clean Catch Urine [place] Count - Final No growth. 07/03/20 18:30 Clean Catch Urine - Final No growth. Assessment/ Plan: Nephrology No acute cardiac or pulmonary compaints. No CP or SOB. No acute events overnight. Vitals, medications, blood work and imaging reviewed in the chart. NAD. MMM. Neck supple. CTA. RRR. Soft Abd. No C/C/E. No rash. AAO. Normal Speech. A/P: Continue the current POC and Medications other than the changes listed. AM Labs PRN. Recommend daily weight. Please see the orders for complete details. DOMONIQUE CKD 3B with protienuria -Gentle IVF -No NSAIDs Hyponatremia -May need to change IVF if hyponatremia worsens Hypocalcemia -Continue Vitamin D -Start Calcitriol HTN with CKD/ CHF -Continue Amlodipine and Coreg Diastolic CHF, chronic -Continue Coreg DM II with CKD -Wean steroids as tolerated Moderate malnutrition -Encourage nutrition -Recommend protein supplementation Anemia in chronic illness GI bleed -Give Retacrit X1 BPH with LUTS -Continue Flomax Acute hypoxic respiratory failure due to COVID-19 -Continue steroid therapy
[2020-07-26 04:49] LABS: Hematocrit 27.7 % (39.6-49.0); MPV 9.4 fL (7.6-11.3); RBC Red Blood Cell Count 3.16 M/uL (4.33-5.43)
[2020-07-26 05:03] LABS: Potassium 4.9 mmol/L (3.5-5.1)
[2020-07-26] MEDS: LIDOCAINE 4% PATCH TOP SCH (08:57)
[2020-07-26] MEDS: VITAMIN D 1000 UNIT TAB PO SCH (08:57)
[2020-07-26] MEDS: THIAMINE HCL 100 MG TABLET PO SCH ×2 (08:58→21:07)
[2020-07-26] MEDS: FOLIC ACID 1 MG TABLET PO SCH (08:58)
[2020-07-26] MEDS: FLUCONAZOLE 100 MG TAB PO SCH (08:58)
[2020-07-26] MEDS: PANTOPRAZOLE 40MG TABLET PO SCH ×2 (08:58→17:08)
[2020-07-26] MEDS: ASCORBIC ACID 500 MG TABLET PO SCH ×3 (08:58→21:08)
[2020-07-26] MEDS: CEFTRIAXONE/SWI 1gm 1 GM/10 ML SYR IV SCH (08:59)
[2020-07-26] MEDS: carvediloL 12.5 MG TAB PO SCH (08:59)
[2020-07-26] MEDS: CALCITROL 0.25 MCG CAP PO SCH (08:59)
[2020-07-26] MEDS: QUETIAPINE 25 MG TAB PO SCH ×2 (09:00→21:08)
[2020-07-26] MEDS: METHYLPREDNISOLONE 125 MG INJ IV SCH ×2 (09:00→21:08)
[2020-07-26] MEDS: ZINC SULFATE 220 MG CAP PO SCH (09:00)
[2020-07-26] MEDS ORDERED: EPOETIN ALFA-EPBX 10,000 UNIT/ML VIAL SQ SCH (09:00)
[2020-07-26] MEDS: GLUCERNA SHAKE 237 ML CAN PO SCH ×3 (09:01→17:08)
[2020-07-26] MEDS: DOCUSATE NA 100 MG CAP PO SCH (09:01)
[2020-07-26] MEDS: AMLODIPINE 10 MG TAB PO SCH (09:01)
[2020-07-26] MEDS: ACETAMINOPHEN 500 MG TAB PO PRN (11:07)
[2020-07-26] MEDS: NACHLORIDE 0.45% 1,000 ML IV SCH (13:57)
[2020-07-26] MEDS ORDERED: NACHLORIDE 0.45% 1,000 ML IV SCH (14:00)
--- NOTE | 2020-07-26 14:04 | P.PN ---
Date of Service: 07/25/20 Subjective Subjective: Doing well. No new complaints. Physical Examination - Vital Signs Reviewed - Physical Exam General: Alert, In no apparent distress, Demented Respiratory: Clear to auscultation bilaterally, Normal air movement Cardiovascular: Regular rate/rhythm, Normal S1 S2, No murmurs Gastrointestinal: Normal bowel sounds, Soft and benign, Non-distended, No tenderness Musculoskeletal: No clubbing, No swelling, No tenderness Neurological: Sensation intact, Cranial nerves 3-12 intact Assessment & Plan - Problems (Diagnosis) (1) Pneumonia due to COVID-19 virus Current Visit: Yes Status: Acute (2) DOMONIQUE (acute kidney injury) Current Visit: Yes Status: Acute (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 Hydration and renal function are improved 2. Need to wean down steroids 3. Patient is a do not resuscitate 4. Advanced diet as tolerated 5. GI and DVT prophylaxis
[2020-07-26] MEDS ORDERED: GLUCAGON 1 MG/VIAL IM PRN (15:59)
--- NOTE | 2020-07-26 16:01 | P.PN ---
Subjective Date of Service: 07/26/20 Chief Complaint: Respiratory failure from [place] virus The seems to be improving a little still continues to be agitated saturation satisfactory Review of Systems General: Weakness Respiratory: Shortness of Breath Physical Examination - Vital Signs Temperature: 97.2 F Blood Pressure: 153/70 Pulse: 62 Respirations: 22 Pulse Ox (%): 100 - Studies Medications List Reviewed: Yes Assessment & Plan - Problems (Diagnosis) (1) Acute respiratory failure due to severe acute respiratory syndrome coronavirus 2 (SARS-CoV-2) infection Current Visit: Yes Status: Acute Plan: Respiratory failure from [place] virus patient's renal function has significantly improved white count is also declining continue with IV fluids steroids continue to titrate O2 down blood sugars still elevated add insulin patient's hemoglobin stable resume Lovenox
[2020-07-26] MEDS ORDERED: D50W 25 GM/50 ML VIAL IV PRN (16:20)
[2020-07-26] MEDS: INSULIN 70/30 100 UNITS/ML SQ SCH (17:07)
[2020-07-26] MEDS: ENOXAPARIN 40 MG/0.4 ML SQ SCH (17:07)
[2020-07-26] MEDS: TAMSULOSIN 0.4 MG SR CAP PO SCH (21:08)
[2020-07-26] MEDS: ATORVASTATIN 10 MG TAB PO SCH (21:08)
--- NOTE | 2020-07-26 21:36 | P.PN ---
Date of Service: 07/26/20 Vital Signs Temp Pulse Resp BP Pulse Ox 97.8 F 73 19 149/69 H 100 07/26/20 20:00 07/26/20 20:00 07/26/20 20:00 07/26/20 21:20 07/26/20 20:00 Medications Acetaminophen (Acetaminophen 500 Mg Tab) 500 mg PO Q6H PRN PRN Reason: TEMP > 100' F Stop: 08/02/20 22:35 Last Admin: 07/26/20 11:07 Dose: 500 mg Documented by: Amlodipine Besylate (Amlodipine 10 Mg Tab) 10 mg PO DAILY [facility] Stop: 08/05/20 09:01 Last Admin: 07/26/20 09:01 Dose: 10 mg Documented by: Ascorbic Acid (Ascorbic Acid 500 Mg Tablet) 500 mg PO TID [facility] Stop: 08/15/20 14:01 Last Admin: 07/26/20 21:08 Dose: 500 mg Documented by: Atorvastatin Calcium (Atorvastatin 10 Mg Tab) 10 mg PO BEDTIME JL Stop: 08/14/20 21:01 Last Admin: 07/26/20 21:08 Dose: 10 mg Documented by: Benzonatate (Benzonatate 100 Mg Cap) 200 mg PO Q4HP PRN PRN Reason: COUGH Stop: 08/08/20 20:11 Last Admin: 07/24/20 21:41 Dose: 200 mg Documented by: Calcitriol (Calcitrol 0.25 Mcg Cap) 0.5 mcg PO DAILY [facility] Last Admin: 07/26/20 08:59 Dose: 0.5 mcg Documented by: Carvedilol (Carvedilol 12.5 Mg Tab) 12.5 mg PO DAILY [facility] Stop: 08/03/20 14:01 Last Admin: 07/26/20 08:59 Dose: 12.5 mg Documented by: Cholecalciferol (Vitamin D 1000 Unit Tab) 2,000 unit PO DAILY [facility] Stop: 08/16/20 09:01 Last Admin: 07/26/20 08:57 Dose: 2,000 unit Documented by: Dextrose (D50w 25 Gm/50 Ml Vial) 12.5 gm IV PRN PRN; Protocol PRN Reason: HYPOGLYCEMIA Docusate Sodium (Docusate Na 100 Mg Cap) 100 mg PO DAILY [facility] Last Admin: 07/26/20 09:01 Dose: 100 mg Documented by: Enoxaparin Sodium (Enoxaparin 40 Mg/0.4 Ml) 40 mg SQ DAILY [facility] Last Admin: 07/26/20 17:07 Dose: 40 mg Documented by: Enteral Nutritional Formula (Glucerna Shake 237 Ml Can) 237 ml PO TIDWM [facility] Last Admin: 07/26/20 17:08 Dose: 237 ml Documented by: Fluconazole (Fluconazole 100 Mg Tab) 200 mg PO DAILY [facility]; Protocol Last Admin: 07/26/20 08:58 Dose: 200 mg Documented by: Folic Acid (Folic Acid 1 Mg Tablet) 1 mg PO DAILY [facility] Stop: 08/16/20 09:01 Last Admin: 07/26/20 08:58 Dose: 1 mg Documented by: Glucagon (Glucagon 1 Mg/Vial) 1 mg IM 1X PRN; Protocol PRN Reason: HYPOGLYCEMIA Ceftriaxone Sodium/Sodium Chloride (Rocephin 1 Gm/10 Ml Swi Ivp) 1 gm in 10 mls @ 600 mls/hr IV DAILY [facility] Last Admin: 07/26/20 08:59 Dose: 10 mls Documented by: Insulin Human Isoph/Insulin Regular (Insulin 70/30 100 Units/Ml) 10 unit SQ BIDAC [facility] Last Admin: 07/26/20 17:07 Dose: 10 units Documented by: Lactulose (Lactulose 20 Gm/30 Ml Ucup) 10 gm PO BID PRN PRN Reason: CONSTIPATION Last Admin: 07/20/20 17:26 Dose: 10 gm Documented by: Lidocaine (Lidocaine 4% Patch) 1 patch TOP DAILY [facility] Stop: 08/05/20 20:01 Last Admin: 07/26/20 08:57 Dose: 1 patch Documented by: Methylprednisolone Sodium Succinate (Methylprednisolone 125 Mg Inj) 80 mg IV BID [facility] Stop: 08/15/20 14:01 Last Admin: 07/26/20 21:08 Dose: 80 mg Documented by: Pantoprazole Sodium (Pantoprazole 40mg Tablet) 40 mg PO BIDAC [facility]; Protocol Stop: 08/13/20 09:01 Last Admin: 07/26/20 17:08 Dose: 40 mg Documented by: Quetiapine Fumarate (Quetiapine 25 Mg Tab) 25 mg PO BID [facility] Stop: 08/03/20 21:01 Last Admin: 07/26/20 21:08 Dose: 25 mg Documented by: Sodium Chloride (Flush Normal Saline 10 Ml) 10 ml IV BID [facility] Stop: 08/02/20 22:35 Last Admin: 07/26/20 21:09 Dose: 10 ml Documented by: Sodium Chloride (Sodium Chloride 0.9% 10ml Inj) 10 ml IV UD PRN PRN Reason: Diluant Stop: 08/11/20 16:17 Sterile Water (Water For Inj,Sterile 10 Ml) 1.2 ml IM UD PRN PRN Reason: DILUTION OF MED Tamsulosin HCl (Tamsulosin 0.4 Mg Sr Cap) 0.4 mg PO BEDTIME JL Stop: 08/03/20 21:01 Last Admin: 07/26/20 21:08 Dose: 0.4 mg Documented by: Thiamine HCl (Thiamine Hcl 100 Mg Tablet) 200 mg PO BID JL Stop: 08/15/20 21:01 Last Admin: 07/26/20 21:07 Dose: 200 mg Documented by: Zinc Sulfate (Zinc Sulfate 220 Mg Cap) 220 mg PO DAILY JL Stop: 08/16/20 09:01 Last Admin: 07/26/20 09:00 Dose: 220 mg Documented by: Ziprasidone (Ziprasidone Mesyla 20 Mg/Vial) 10 mg IM Q6H PRN PRN Reason: AGITATION Microbiology Results 07/03/20 18:00 Blood - Blood Aerobic Blood Culture - Final No growth in 5 days. 07/03/20 18:00 Blood - Blood Anaerobic Blood Culture - Final No growth in 5 days. 07/03/20 17:00 Blood - Blood Aerobic Blood Culture - Final No growth in 5 days. 07/03/20 17:00 Blood - Blood Anaerobic Blood Culture - Final No growth in 5 days. 07/03/20 18:30 Clean Catch Urine [place] Count - Final No growth. 07/03/20 18:30 Clean Catch Urine - Final No growth. Assessment/ Plan: Nephrology No acute cardiac or pulmonary complaints. No CP or SOB. +CASTAN[place] Weakness and fatigue No acute events overnight. Vitals, medications, blood work and imaging reviewed in the chart. NAD. MMM. Neck supple. CTA. RRR. Soft Abd. No C/C/E. No rash. AAO. Normal Speech. A/P: Continue the current POC and Medications other than the changes listed. AM Labs PRN. Recommend daily weight. Please see the orders for complete details. DOMONIQUE CKD 3B with protienuria -Stop IVF and restart as needed. -No NSAIDs Hyponatremia -Stop IVF Hypocalcemia -Continue Vitamin D -Continue Calcitriol HTN with CKD/ CHF -Continue Amlodipine and Coreg Diastolic CHF, chronic -Continue Coreg DM II with CKD -Wean steroids as tolerated Moderate malnutrition -Encourage nutrition -Recommend protein supplementation Anemia in chronic illness GI bleed -Retacrit PRN BPH with LUTS -Continue Flomax Acute hypoxic respiratory failure due to COVID-19 -Continue steroid therapy
[2020-07-27] MEDS: QUETIAPINE 25 MG TAB PO SCH ×2 (07:15→20:34)
[2020-07-27] MEDS: CEFTRIAXONE/SWI 1gm 1 GM/10 ML SYR IV SCH (08:29)
[2020-07-27] MEDS: INSULIN 70/30 100 UNITS/ML SQ SCH ×2 (08:30→16:08)
[2020-07-27] MEDS: ENOXAPARIN 40 MG/0.4 ML SQ SCH (08:31)
[2020-07-27] MEDS: DOCUSATE NA 100 MG CAP PO SCH (08:31)
[2020-07-27] MEDS: FLUCONAZOLE 100 MG TAB PO SCH (08:31)
[2020-07-27] MEDS: LIDOCAINE 4% PATCH TOP SCH (08:31)
[2020-07-27] MEDS: FOLIC ACID 1 MG TABLET PO SCH (08:32)
[2020-07-27] MEDS: ASCORBIC ACID 500 MG TABLET PO SCH ×3 (08:32→20:34)
[2020-07-27] MEDS: CALCITROL 0.25 MCG CAP PO SCH (08:32)
[2020-07-27] MEDS: PANTOPRAZOLE 40MG TABLET PO SCH ×2 (08:32→16:09)
[2020-07-27] MEDS: AMLODIPINE 10 MG TAB PO SCH (08:32)
[2020-07-27] MEDS: VITAMIN D 1000 UNIT TAB PO SCH (08:32)
[2020-07-27] MEDS: THIAMINE HCL 100 MG TABLET PO SCH ×2 (08:32→20:34)
[2020-07-27] MEDS: carvediloL 12.5 MG TAB PO SCH (08:33)
[2020-07-27] MEDS: METHYLPREDNISOLONE 125 MG INJ IV SCH ×2 (08:33→20:35)
[2020-07-27] MEDS: ZINC SULFATE 220 MG CAP PO SCH (08:33)
[2020-07-27] MEDS: GLUCERNA SHAKE 237 ML CAN PO SCH ×3 (08:34→18:17)
--- NOTE | 2020-07-27 08:34 | P.PN ---
Date of Service: 07/26/20 Subjective Subjective: Patient continues to improve with no new complaints. Patient's oxygenation is improved. Will start working with physical therapy on Wednesday. Will aggressively wean down oxygenation to keep his sats greater than 88%. Will probably allow for permissive hypoxemia at this time. Physical Examination - Vital Signs Reviewed - Physical Exam General: Alert, In no apparent distress, Demented Respiratory: Clear to auscultation bilaterally, Normal air movement Cardiovascular: Regular rate/rhythm, Normal S1 S2, No murmurs Gastrointestinal: Normal bowel sounds, Soft and benign, Non-distended, No tenderness Musculoskeletal: No clubbing, No swelling, No tenderness Neurological: Sensation intact, Cranial nerves 3-12 intact Assessment & Plan - Problems (Diagnosis) (1) Pneumonia due to COVID-19 virus Current Visit: Yes Status: Acute (2) DOMONIQUE (acute kidney injury) Current Visit: Yes Status: Acute (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 Hydration and renal function are improved; encourage oral intake and decreased IV hydration 2. Need to wean down steroids; 3. Patient is a do not resuscitate 4. Advanced diet as tolerated 5. Encourage physical therapy starting Wednesday 6. GI and DVT prophylaxis
--- NOTE | 2020-07-27 08:36 | P.PN ---
Date of Service: 07/27/20 Subjective Subjective: Patient with no significant changes. Will continue to wean down oxygenation today. Speak with daughter regarding plan of care Physical Examination - Vital Signs Reviewed - Physical Exam General: Alert, In no apparent distress, Demented Respiratory: Diminished breath sound bilaterally; otherwise basilar crackles Cardiovascular: Regular rate/rhythm, Normal S1 S2, No murmurs Gastrointestinal: Normal bowel sounds, Soft and benign, Non-distended, No tenderness Musculoskeletal: No clubbing, No swelling, No tenderness Neurological: Sensation intact, Cranial nerves 3-12 intact Assessment & Plan - Problems (Diagnosis) (1) Pneumonia due to COVID-19 virus Current Visit: Yes Status: Acute (2) DOMONIQUE (acute kidney injury) Current Visit: Yes Status: Acute (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 Hydration and renal function are improved; repeat labs in the morning; encourage oral intake and decreased IV hydration 2. Need to continue to wean down steroids; 3. Patient is a do not resuscitate; discuss with family regarding plan of care 4. Advanced diet as tolerated 5. Encourage physical therapy starting Wednesday 6. GI and DVT prophylaxis
[2020-07-27] MEDS ORDERED: LACTULOSE 20 GM/30 ML UCUP PO ONE (09:00)
[2020-07-27] MEDS: METOCLOPRAMIDE 10 MG/2mL INJ IV SCH (10:07)
--- NOTE | 2020-07-27 13:04 | P.PN ---
Date of Service: 07/27/20 Vital Signs Temp Pulse Resp BP Pulse Ox 97.8 F 62 20 148/72 H 99 07/27/20 12:00 07/27/20 12:00 07/27/20 12:00 07/27/20 12:00 07/27/20 12:00 Medications Acetaminophen (Acetaminophen 500 Mg Tab) 500 mg PO Q6H PRN PRN Reason: TEMP > 100' F Stop: 08/02/20 22:35 Last Admin: 07/26/20 11:07 Dose: 500 mg Documented by: Amlodipine Besylate (Amlodipine 10 Mg Tab) 10 mg PO DAILY [facility] Stop: 08/05/20 09:01 Last Admin: 07/27/20 08:32 Dose: 10 mg Documented by: Ascorbic Acid (Ascorbic Acid 500 Mg Tablet) 500 mg PO TID [facility] Stop: 08/15/20 14:01 Last Admin: 07/27/20 08:32 Dose: 500 mg Documented by: Atorvastatin Calcium (Atorvastatin 10 Mg Tab) 10 mg PO BEDTIME JL Stop: 08/14/20 21:01 Last Admin: 07/26/20 21:08 Dose: 10 mg Documented by: Benzonatate (Benzonatate 100 Mg Cap) 200 mg PO Q4HP PRN PRN Reason: COUGH Stop: 08/08/20 20:11 Last Admin: 07/24/20 21:41 Dose: 200 mg Documented by: Calcitriol (Calcitrol 0.25 Mcg Cap) 0.5 mcg PO DAILY [facility] Last Admin: 07/27/20 08:32 Dose: 0.5 mcg Documented by: Carvedilol (Carvedilol 12.5 Mg Tab) 12.5 mg PO DAILY [facility] Stop: 08/03/20 14:01 Last Admin: 07/27/20 08:33 Dose: 12.5 mg Documented by: Cholecalciferol (Vitamin D 1000 Unit Tab) 2,000 unit PO DAILY [facility] Stop: 08/16/20 09:01 Last Admin: 07/27/20 08:32 Dose: 2,000 unit Documented by: Dextrose (D50w 25 Gm/50 Ml Vial) 12.5 gm IV PRN PRN; Protocol PRN Reason: HYPOGLYCEMIA Docusate Sodium (Docusate Na 100 Mg Cap) 100 mg PO DAILY [facility] Last Admin: 07/27/20 08:31 Dose: 100 mg Documented by: Enoxaparin Sodium (Enoxaparin 40 Mg/0.4 Ml) 40 mg SQ DAILY [facility] Last Admin: 07/27/20 08:31 Dose: 40 mg Documented by: Enteral Nutritional Formula (Glucerna Shake 237 Ml Can) 237 ml PO TIDWM [facility] Last Admin: 07/27/20 11:19 Dose: 237 ml Documented by: Fluconazole (Fluconazole 100 Mg Tab) 200 mg PO DAILY [facility]; Protocol Last Admin: 07/27/20 08:31 Dose: 200 mg Documented by: Folic Acid (Folic Acid 1 Mg Tablet) 1 mg PO DAILY [facility] Stop: 08/16/20 09:01 Last Admin: 07/27/20 08:32 Dose: 1 mg Documented by: Glucagon (Glucagon 1 Mg/Vial) 1 mg IM 1X PRN; Protocol PRN Reason: HYPOGLYCEMIA Ceftriaxone Sodium/Sodium Chloride (Rocephin 1 Gm/10 Ml Swi Ivp) 1 gm in 10 mls @ 600 mls/hr IV DAILY [facility] Last Admin: 07/27/20 08:29 Dose: 10 mls Documented by: Insulin Human Isoph/Insulin Regular (Insulin 70/30 100 Units/Ml) 10 unit SQ BIDAC [facility] Last Admin: 07/27/20 08:30 Dose: 10 units Documented by: Lactulose (Lactulose 20 Gm/30 Ml Ucup) 10 gm PO BID PRN PRN Reason: CONSTIPATION Last Admin: 07/20/20 17:26 Dose: 10 gm Documented by: Lidocaine (Lidocaine 4% Patch) 1 patch TOP DAILY [facility] Stop: 08/05/20 20:01 Last Admin: 07/27/20 08:31 Dose: 1 patch Documented by: Methylprednisolone Sodium Succinate (Methylprednisolone 125 Mg Inj) 80 mg IV BID [facility] Stop: 08/15/20 14:01 Last Admin: 07/27/20 08:33 Dose: 80 mg Documented by: Metoclopramide HCl (Metoclopramide 10 Mg/2ml Inj) 10 mg IV 1X [facility] Last Admin: 07/27/20 10:07 Dose: 10 mg Documented by: Morphine Sulfate (Morphine 2 Mg/Ml Syr) 2 mg IV Q6H PRN PRN Reason: Pain scale 5-7 (Moderate) Pantoprazole Sodium (Pantoprazole 40mg Tablet) 40 mg PO BIDAC [facility]; Protocol Stop: 08/13/20 09:01 Last Admin: 07/27/20 08:32 Dose: 40 mg Documented by: Quetiapine Fumarate (Quetiapine 25 Mg Tab) 25 mg PO BID JL Stop: 08/03/20 21:01 Last Admin: 07/27/20 07:15 Dose: 25 mg Documented by: Sodium Chloride (Flush Normal Saline 10 Ml) 10 ml IV BID JL Stop: 08/02/20 22:35 Last Admin: 07/27/20 08:33 Dose: 10 ml Documented by: Sodium Chloride (Sodium Chloride 0.9% 10ml Inj) 10 ml IV UD PRN PRN Reason: Diluant Stop: 08/11/20 16:17 Sterile Water (Water For Inj,Sterile 10 Ml) 1.2 ml IM UD PRN PRN Reason: DILUTION OF MED Tamsulosin HCl (Tamsulosin 0.4 Mg Sr Cap) 0.4 mg PO BEDTIME JL Stop: 08/03/20 21:01 Last Admin: 07/26/20 21:08 Dose: 0.4 mg Documented by: Thiamine HCl (Thiamine Hcl 100 Mg Tablet) 200 mg PO BID JL Stop: 08/15/20 21:01 Last Admin: 07/27/20 08:32 Dose: 200 mg Documented by: Zinc Sulfate (Zinc Sulfate 220 Mg Cap) 220 mg PO DAILY JL Stop: 08/16/20 09:01 Last Admin: 07/27/20 08:33 Dose: 220 mg Documented by: Ziprasidone (Ziprasidone Mesyla 20 Mg/Vial) 10 mg IM Q6H PRN PRN Reason: AGITATION Microbiology Results 07/03/20 18:00 Blood - Blood Aerobic Blood Culture - Final No growth in 5 days. 07/03/20 18:00 Blood - Blood Anaerobic Blood Culture - Final No growth in 5 days. 07/03/20 17:00 Blood - Blood Aerobic Blood Culture - Final No growth in 5 days. 07/03/20 17:00 Blood - Blood Anaerobic Blood Culture - Final No growth in 5 days. 07/03/20 18:30 Clean Catch Urine [place] Count - Final No growth. 07/03/20 18:30 Clean Catch Urine - Final No growth. Assessment/ Plan: Nephrology No acute cardiac or pulmonary complaints. No CP. Dyspnea/ [place] with persistent hypoxia. Weakness and fatigue No acute events overnight. Vitals, medications, blood work and imaging reviewed in the chart. NAD. MMM. Neck supple. CTA. RRR. Soft Abd. No C/C/E. No rash. AAO. Normal Speech. A/P: Continue the current POC and Medications other than the changes listed. AM Labs PRN. Recommend daily weight. Please see the orders for complete details. DOMONIQUE CKD 3B with protienuria -Hold IVF -No NSAIDs Hyponatremia -Hold IVF Hypocalcemia -Continue Vitamin D -Continue Calcitriol HTN with CKD/ CHF -Continue Amlodipine and Coreg Diastolic CHF, chronic -Continue Coreg DM II with CKD -Wean steroids as tolerated Moderate malnutrition -Encourage nutrition -Recommend protein supplementation Anemia in chronic illness GI bleed -Retacrit PRN BPH with LUTS -Continue Flomax Acute hypoxic respiratory failure due to COVID-19 -Continue steroid therapy -Wean Oxygen as tolerated.
[2020-07-27] MEDS: MORPHINE 2 MG/ML SYR IV PRN (15:43)
[2020-07-27] MEDS: ATORVASTATIN 10 MG TAB PO SCH (20:34)
[2020-07-27] MEDS: TAMSULOSIN 0.4 MG SR CAP PO SCH (20:34)
[2020-07-27] MEDS: ACETAMINOPHEN 500 MG TAB PO PRN (20:34)
[2020-07-28] MEDS: MORPHINE 2 MG/ML SYR IV PRN ×3 (01:54→21:10)
[2020-07-28 07:10] LABS: BUN Blood Urea Nitrogen 48 mg/dL (7-18); Bicarbonate 26 mmol/L (21-32); C-Reactive Protein < 2.90 mg/L (<3.00); Ferritin 374.2 ng/mL (26-388); Glucose Level 146 mg/dL (74-106); NT PRO-BNP 1472 pg/mL (<450); Phosphorus 3.3 mg/dL (2.5-4.9); Potassium 5.3 mmol/L (3.5-5.1); Sodium Level 135 mmol/L (136-145)
[2020-07-28 07:11] LABS: Magnesium 2.4 mg/dL (1.8-2.4)
[2020-07-28] MEDS: GLUCERNA SHAKE 237 ML CAN PO SCH ×3 (08:00→17:00)
[2020-07-28] MEDS: CALCITROL 0.25 MCG CAP PO SCH (08:43)
[2020-07-28] MEDS: INSULIN 70/30 100 UNITS/ML SQ SCH ×2 (08:43→17:10)
[2020-07-28] MEDS: QUETIAPINE 25 MG TAB PO SCH ×2 (08:43→20:13)
[2020-07-28] MEDS: ASCORBIC ACID 500 MG TABLET PO SCH ×3 (08:44→20:13)
[2020-07-28] MEDS: ZINC SULFATE 220 MG CAP PO SCH (08:44)
[2020-07-28] MEDS: FLUCONAZOLE 100 MG TAB PO SCH (08:44)
[2020-07-28] MEDS: AMLODIPINE 10 MG TAB PO SCH (08:44)
[2020-07-28] MEDS: FOLIC ACID 1 MG TABLET PO SCH (08:44)
[2020-07-28] MEDS: PANTOPRAZOLE 40MG TABLET PO SCH ×2 (08:44→17:11)
[2020-07-28] MEDS: VITAMIN D 1000 UNIT TAB PO SCH (08:44)
[2020-07-28] MEDS: METHYLPREDNISOLONE 125 MG INJ IV SCH ×2 (08:45→20:13)
[2020-07-28] MEDS: CEFTRIAXONE/SWI 1gm 1 GM/10 ML SYR IV SCH (08:48)
[2020-07-28] MEDS: LIDOCAINE 4% PATCH TOP SCH (08:48)
[2020-07-28] MEDS: DOCUSATE NA 100 MG CAP PO SCH (08:48)
[2020-07-28] MEDS: METOCLOPRAMIDE 10 MG/2mL INJ IV SCH (08:53)
[2020-07-28] MEDS: carvediloL 12.5 MG TAB PO SCH (08:55)
[2020-07-28] MEDS: THIAMINE HCL 100 MG TABLET PO SCH ×2 (09:00→20:14)
--- NOTE | 2020-07-28 10:45 | RAD REPORT ---
EXAM DESCRIPTION: [place] Single View07/28/2020 6:56 am CLINICAL HISTORY: Chest pain COMPARISON: July 24 FINDINGS: Mild worsening in extensive bilateral pulmonary opacities Heart remains enlarged IMPRESSION: Mild worsening in extensive bilateral pulmonary opacities which may represent pneumonia or pulmonary edema
[2020-07-28] MEDS: ENOXAPARIN 40 MG/0.4 ML SQ SCH ×2 (10:55→20:14)
--- NOTE | 2020-07-28 11:21 | P.PN ---
Subjective Date of Service: 07/28/20 Chief Complaint: Respiratory failure from carr[place] virus Seems to be improving renal function is better continue to wean down on the oxygen Review of Systems General: Weakness Respiratory: Shortness of Breath Physical Examination - Vital Signs Temperature: 97 F Blood Pressure: 134/62 Pulse: 62 Respirations: 20 Pulse Ox (%): 96 - Studies Medications List Reviewed: Yes Assessment & Plan - Problems (Diagnosis) (1) Acute respiratory failure due to severe acute respiratory syndrome coronavirus 2 (SARS-CoV-2) infection Current Visit: Yes Status: Acute Plan: Respiratory failure from carrillo virus renal function is improved white count is declining patient is not eating and drinking much reduce dose of Solu-Medrol Ryne another dose of ivermectin resume DVT prophylaxis hemoglobin stable high risk for thromboembolism Physician Review Additional Text: Initial chief complaint: Shortness of breath secondary to COVID 19 Physical Exam: Patient is alert. Dementia noted. Heart: normal rythym Lung: he is on nonrebreather. GI: soft, nontender, nondistended EXT: good range of motion. Impression: Acute respiratory failure with hypoxia secondary to bilateral COVID 19 pneumonia Alzheimer dementia HTN DM Type 2 BPH Hyperlipidemia Plan: Acute respiratory failure with hypoxia secondary to bilateral COVID 19 pneumonia: Patient continues to show slow improvement. Chest x-ray shows improvement. Patient on BiPAP at 55% FiO2. Respiratory to continue to wean off. Patient had been on non-rebreather. Plan is for high-flow then transition to nasal cannula. Pulmonology added Lasix. Physical therapy ordered. Encourage incentive spirometer. Family wants for patient to return back at discharge. Family does not desire for him to go to a skilled facility. Continue with IV steroids and supplementation. Anticipate home in the next 72 hr. I will turn the service over to the hospitalist team tomorrow. I will go plan of care with him. Alzheimer dementia: Overall stable. Continue with mood stabilizers. HTN: Continue medication DM Type 2: Continue Accu-Cheks. Continue to adjust medication. Maintain adequate control of blood sugar. BPH: Continue medication Hyperlipidemia: continue medication
[2020-07-28] MEDS ORDERED: SOD POLYSTYREN SUL 15 GM/60 ML UCUP PO ONE (11:43)
[2020-07-28] MEDS ORDERED: IVERMECTIN 3 MG TABLET PO ONE (12:00)
[2020-07-28] MEDS ORDERED: LORazepam 2 MG/ML VIAL IV ONE (14:26)
[2020-07-28] MEDS: TAMSULOSIN 0.4 MG SR CAP PO SCH (20:13)
[2020-07-28] MEDS: ATORVASTATIN 10 MG TAB PO SCH (20:13)
[2020-07-28 21:20] LABS: Absolute Lymphocytes (CBC) 0.5 K/uL (0.7-4.9); Basophils % 0.4 % (0-1.3); Hematocrit 29.6 % (39.6-49.0); Lymphocytes % 4.1 % (15.3-44.8); MPV 9.2 fL (7.6-11.3); RBC Red Blood Cell Count 3.35 M/uL (4.33-5.43)
[2020-07-28 22:45] LABS: Blood Morphology Comment NOT SEEN (NOT SEEN); Platelet Estimate ADEQ
--- NOTE | 2020-07-29 02:40 | P.PN ---
Date of Service: 07/28/20 Subjective Subjective: Patient with no significant changes. Family wanted to take patient home. Will discuss with family regarding patient needing to go to a [facility] facility. They have been reluctant; however, she will require quite a bit of care going forward. Physical Examination - Vital Signs Reviewed - Physical Exam General: Alert, In no apparent distress, Demented Respiratory: Diminished breath sound bilaterally; otherwise basilar crackles Cardiovascular: Regular rate/rhythm, Normal S1 S2, No murmurs Gastrointestinal: Normal bowel sounds, Soft and benign, Non-distended, No tenderness Musculoskeletal: No clubbing, No swelling, No tenderness Assessment & Plan - Problems (Diagnosis) (1) Pneumonia due to COVID-19 virus; severe hypoxemia Current Visit: Yes Status: Acute (2) DOMONIQUE (acute kidney injury) Current Visit: Yes Status: Acute (3) Dementia in Alzheimer's disease Current Visit: Yes Status: Acute (4) UTI (urinary tract infection) Onset Date: 03/01/17 Current Visit: No Status: Acute (5) Weakness generalized Onset Date: 03/01/17 Current Visit: No Status: Acute (6) Hypertension Current Visit: Yes Status: Acute (7) Type 2 diabetes mellitus Current Visit: Yes Status: Acute (8) CKD (chronic kidney disease) Current Visit: Yes Status: Acute (9) Leukocytosis Onset Date: 03/01/17 Current Visit: No Status: Acute (10) LGIB; hemorrhoidal bleeding Onset Date: 03/01/17 Current Visit: No Status: Acute - Plan Continue with plan of care as mentioned below 1. Hydration and renal function are improved; heplock IV; repeat labs as needed 2. Need to continue to wean down steroids; 3. Patient is a do not resuscitate; need to readdress and discuss with family regarding plan of care 4. Advanced diet as tolerated 5. Encourage physical therapy on Wednesday 6. GI and DVT prophylaxis
[2020-07-29] MEDS: FUROSEMIDE 20 MG/ 2ML VIAL IV SCH ×2 (04:51→09:04)
[2020-07-29] MEDS: MORPHINE 2 MG/ML SYR IV PRN (05:29)
[2020-07-29] MEDS: GLUCERNA SHAKE 237 ML CAN PO SCH ×3 (08:00→16:42)
[2020-07-29] MEDS: FLUCONAZOLE 100 MG TAB PO SCH (09:00)
[2020-07-29] MEDS: VITAMIN D 1000 UNIT TAB PO SCH (09:00)
[2020-07-29] MEDS: ZINC SULFATE 220 MG CAP PO SCH (09:03)
[2020-07-29] MEDS: QUETIAPINE 25 MG TAB PO SCH ×2 (09:03→20:02)
[2020-07-29] MEDS: AMLODIPINE 10 MG TAB PO SCH (09:03)
[2020-07-29] MEDS: CALCITROL 0.25 MCG CAP PO SCH (09:04)
[2020-07-29] MEDS: CEFTRIAXONE/SWI 1gm 1 GM/10 ML SYR IV SCH (09:04)
[2020-07-29] MEDS: LIDOCAINE 4% PATCH TOP SCH (09:04)
[2020-07-29] MEDS: FOLIC ACID 1 MG TABLET PO SCH (09:04)
[2020-07-29] MEDS: THIAMINE HCL 100 MG TABLET PO SCH ×2 (09:04→20:01)
[2020-07-29] MEDS: carvediloL 12.5 MG TAB PO SCH (09:05)
[2020-07-29] MEDS: ENOXAPARIN 40 MG/0.4 ML SQ SCH ×2 (09:05→20:03)
[2020-07-29] MEDS: METHYLPREDNISOLONE 125 MG INJ IV SCH ×2 (09:05→20:02)
[2020-07-29] MEDS: DOCUSATE NA 100 MG CAP PO SCH (09:05)
[2020-07-29] MEDS: INSULIN 70/30 100 UNITS/ML SQ SCH ×2 (09:06→16:41)
[2020-07-29] MEDS: ASCORBIC ACID 500 MG TABLET PO SCH ×3 (09:06→20:02)
[2020-07-29] MEDS: PANTOPRAZOLE 40MG TABLET PO SCH (09:06)
--- NOTE | 2020-07-29 14:00 | P.PN ---
Subjective Date of Service: 07/29/20 Chief Complaint: Respiratory failure from carrillo virus Subjective: Other (Patient stable on non-rebreather.) Physical Examination - Vital Signs Temperature: 97.2 F Blood Pressure: 137/71 Pulse: 69 Respirations: 15 Pulse Ox (%): 98 - Studies Medications List Reviewed: Yes Assessment & Plan Discharge Plan: Other (halfway facility versus home) Plan to discharge in: Greater than 2 days Physician Review Additional Text: Initial chief complaint: Shortness of breath secondary to COVID 19 Physical Exam: Patient is alert. Dementia noted. Heart: normal rythym Lung: he is on nonrebreather. GI: soft, nontender, nondistended EXT: good range of motion. Impression: Acute respiratory failure with hypoxia secondary to bilateral COVID 19 pneumonia Alzheimer dementia HTN DM Type 2 BPH Hyperlipidemia Plan: Acute respiratory failure with hypoxia secondary to bilateral COVID 19 pneumonia: Patient continues term main stable on non-rebreather. No significant private branch exchange repairer the last week. Will discuss with family about the possibility of skilled placement. Continue with IV steroids and supplementation. Continue to reassess and monitor Alzheimer dementia: Overall stable. Continue with mood stabilizers. HTN: Continue medication DM Type 2: Continue Accu-Cheks. Continue to adjust medication. Maintain adequate control of blood sugar. BPH: Continue medication Hyperlipidemia: continue medication Time Spent Managing Pts Care (In Minutes): 55
--- NOTE | 2020-07-29 16:05 | P.PN ---
Subjective Date of Service: 07/29/20 Chief Complaint: Respiratory failure from carrillo virus Oxygenation improving. Renal function has improved Review of Systems General: Weakness Respiratory: Shortness of Breath Physical Examination - Vital Signs Temperature: 97.2 F Blood Pressure: 137/71 Pulse: 69 Respirations: 15 Pulse Ox (%): 98 - Studies Medications List Reviewed: Yes Assessment & Plan - Problems (Diagnosis) (1) Acute respiratory failure due to severe acute respiratory syndrome coronavirus 2 (SARS-CoV-2) infection Current Visit: Yes Status: Acute Plan: RResp fialure CW titration down on Fio2 sat of 88-90%. Renal funtion poss back to baseline BS reasonable DW respiratory Physician Review Additional Text: Initial chief complaint: Shortness of breath secondary to COVID 19 Physical Exam: Patient is alert. Dementia noted. Heart: normal rythym Lung: he is on nonrebreather. GI: soft, nontender, nondistended EXT: good range of motion. Impression: Acute respiratory failure with hypoxia secondary to bilateral COVID 19 pneumonia Alzheimer dementia HTN DM Type 2 BPH Hyperlipidemia Plan: Acute respiratory failure with hypoxia secondary to bilateral COVID 19 pneumonia : Patient continues term main stable on non-rebreather. No significant cell changer the last week. Will discuss with family about the possibility of skilled placement. Continue with IV steroids and supplementation. Continue to reassess and monitor Alzheimer dementia: Overall stable. Continue with mood stabilizers. HTN: Continue medication DM Type 2: Continue Accu-Cheks. Continue to adjust medication. Maintain adequate control of blood sugar. BPH: Continue medication Hyperlipidemia: continue medication
[2020-07-29] MEDS: LORazepam 2 MG/ML VIAL IV PRN (18:33)
[2020-07-29] MEDS: ATORVASTATIN 10 MG TAB PO SCH (20:00)
[2020-07-29] MEDS: FAMOTIDINE 20 MG TAB PO SCH (20:01)
[2020-07-29] MEDS: TAMSULOSIN 0.4 MG SR CAP PO SCH (20:01)
[2020-07-30] MEDS: LORazepam 2 MG/ML VIAL IV PRN ×2 (01:53→19:29)
[2020-07-30 04:11] LABS: Absolute Lymphocytes (CBC) 0.6 K/uL (0.7-4.9); Basophils % 0.2 % (0-1.3); Hematocrit 31.2 % (39.6-49.0); Lymphocytes % 6.4 % (15.3-44.8); MPV 9.4 fL (7.6-11.3); RBC Red Blood Cell Count 3.49 M/uL (4.33-5.43)
[2020-07-30 04:28] LABS: BUN Blood Urea Nitrogen 49 mg/dL (7-18); Bicarbonate 33 mmol/L (21-32); C-Reactive Protein < 2.90 mg/L (<3.00); Ferritin 325.9 ng/mL (26-388); Glucose Level 120 mg/dL (74-106); Potassium 4.5 mmol/L (3.5-5.1); Sodium Level 139 mmol/L (136-145)
[2020-07-30] MEDS: GLUCERNA SHAKE 237 ML CAN PO SCH ×3 (08:00→17:00)
[2020-07-30] MEDS: LIDOCAINE 4% PATCH TOP SCH (09:49)
[2020-07-30] MEDS: FLUCONAZOLE 100 MG TAB PO SCH (09:49)
[2020-07-30] MEDS: FOLIC ACID 1 MG TABLET PO SCH (09:49)
[2020-07-30] MEDS: ZINC SULFATE 220 MG CAP PO SCH (09:50)
[2020-07-30] MEDS: AMLODIPINE 10 MG TAB PO SCH (09:50)
[2020-07-30] MEDS: THIAMINE HCL 100 MG TABLET PO SCH ×2 (09:50→19:56)
[2020-07-30] MEDS: VITAMIN D 1000 UNIT TAB PO SCH (09:50)
[2020-07-30] MEDS: carvediloL 12.5 MG TAB PO SCH (09:50)
[2020-07-30] MEDS: CALCITROL 0.25 MCG CAP PO SCH (09:50)
[2020-07-30] MEDS: ASCORBIC ACID 500 MG TABLET PO SCH ×3 (09:51→19:56)
[2020-07-30] MEDS: QUETIAPINE 25 MG TAB PO SCH ×2 (09:51→19:56)
[2020-07-30] MEDS: METHYLPREDNISOLONE 125 MG INJ IV SCH ×2 (09:51→19:55)
[2020-07-30] MEDS: FAMOTIDINE 20 MG TAB PO SCH ×2 (09:51→19:55)
[2020-07-30] MEDS: DOCUSATE NA 100 MG CAP PO SCH (09:52)
[2020-07-30] MEDS: ENOXAPARIN 40 MG/0.4 ML SQ SCH ×2 (09:52→19:55)
[2020-07-30] MEDS: INSULIN 70/30 100 UNITS/ML SQ SCH ×2 (09:54→16:30)
--- NOTE | 2020-07-30 16:12 | P.PN ---
Subjective Date of Service: 07/30/20 Chief Complaint: Respiratory failure from carrillo virus Subjective: Other (Overall stable. No change from yesterday.) Physical Examination - Vital Signs Temperature: 96.7 F Blood Pressure: 145/69 Pulse: 74 Respirations: 24 Pulse Ox (%): 96 - Studies Medications List Reviewed: Yes Assessment & Plan Discharge Plan: Other ([facility] facility) Plan to discharge in: Greater than 2 days Physician Review Additional Text: Initial chief complaint: Shortness of breath secondary to COVID 19 Physical Exam: Patient is alert. Dementia noted. Heart: normal rythym Lung: he is on nonrebreather. GI: soft, nontender, nondistended EXT: good range of motion. Impression: Acute respiratory failure with hypoxia secondary to bilateral COVID 19 pneumonia Alzheimer dementia HTN DM Type 2 BPH Hyperlipidemia Plan: Acute respiratory failure with hypoxia secondary to bilateral COVID 19 pneumonia: Patient remains stable on non-rebreather. Slow progress noted. No significant change consultant the last week. Continue with IV steroids and supplementation. Continue to reassess and monitor. spoke with family about skilled placement. They have agreed. Will talk to director social welfare to help arrange. Alzheimer dementia: Overall stable. Continue with mood stabilizers. HTN: Continue medication DM Type 2: Continue Accu-Cheks. Continue to adjust medication. Maintain adequate control of blood sugar. BPH: Continue medication Hyperlipidemia: continue medication Time Spent Managing Pts Care (In Minutes): 55
[2020-07-30] MEDS: TAMSULOSIN 0.4 MG SR CAP PO SCH (19:56)
[2020-07-30] MEDS: ATORVASTATIN 10 MG TAB PO SCH (19:56)
[2020-07-30] MEDS ORDERED: HALOPERIDOL LACT 5 MG/ML INJ IV PRN (21:26)
[2020-07-30] MEDS ORDERED: LORazepam 2 MG/ML VIAL IV ONE (23:31)
[2020-07-31 04:18] LABS: Absolute Lymphocytes (CBC) 0.4 K/uL (0.7-4.9); Basophils % 0.2 % (0-1.3); Hematocrit 30.4 % (39.6-49.0); Lymphocytes % 5.4 % (15.3-44.8); MPV 9.2 fL (7.6-11.3)
[2020-07-31 04:37] LABS: C-Reactive Protein 15.5 mg/L (<3.00); Ferritin 339.4 ng/mL (26-388)
[2020-07-31] MEDS: GLUCERNA SHAKE 237 ML CAN PO SCH ×4 (08:00→17:00)
[2020-07-31] MEDS: QUETIAPINE 25 MG TAB PO SCH ×4 (09:00→21:17)
[2020-07-31] MEDS: DOCUSATE NA 100 MG CAP PO SCH ×2 (09:00→09:40)
[2020-07-31] MEDS: THIAMINE HCL 100 MG TABLET PO SCH ×4 (09:00→21:17)
[2020-07-31] MEDS: CALCITROL 0.25 MCG CAP PO SCH ×2 (09:00→09:40)
[2020-07-31] MEDS: FAMOTIDINE 20 MG TAB PO SCH ×4 (09:00→21:17)
[2020-07-31] MEDS: FOLIC ACID 1 MG TABLET PO SCH ×2 (09:00→09:40)
[2020-07-31] MEDS: AMLODIPINE 10 MG TAB PO SCH ×2 (09:00→09:41)
[2020-07-31] MEDS: ASCORBIC ACID 500 MG TABLET PO SCH ×5 (09:00→21:17)
[2020-07-31] MEDS: carvediloL 12.5 MG TAB PO SCH ×3 (09:00→21:16)
[2020-07-31] MEDS: FLUCONAZOLE 100 MG TAB PO SCH ×2 (09:00→09:40)
[2020-07-31] MEDS: INSULIN 70/30 100 UNITS/ML SQ SCH ×2 (09:39→16:30)
[2020-07-31] MEDS: LIDOCAINE 4% PATCH TOP SCH (09:40)
[2020-07-31] MEDS: ZINC SULFATE 220 MG CAP PO SCH (09:40)
[2020-07-31] MEDS: VITAMIN D 1000 UNIT TAB PO SCH (09:40)
[2020-07-31] MEDS: ENOXAPARIN 40 MG/0.4 ML SQ SCH ×2 (09:41→20:00)
[2020-07-31] MEDS: METHYLPREDNISOLONE 125 MG INJ IV SCH ×2 (09:41→20:00)
--- NOTE | 2020-07-31 14:45 | P.PN ---
Subjective Date of Service: 07/31/20 Chief Complaint: Respiratory failure from carrillo virus Subjective: Other (Mild agitation. Patient required some medication for agitation last night. Patient given Haldol and Ativan.) Physical Examination - Vital Signs Temperature: 97.2 F Blood Pressure: 154/74 Pulse: 99 Respirations: 26 Pulse Ox (%): 96 - Studies Medications List Reviewed: Yes Assessment & Plan Discharge Plan: Other Plan to discharge in: Greater than 2 days Physician Review Additional Text: Initial chief complaint: Shortness of breath secondary to COVID 19 Physical Exam: Patient is alert. Dementia noted. Mild agitation noted today. Heart: normal rythym Lung: he is on nonrebreather. GI: soft, nontender, nondistended EXT: good range of motion. Impression: Acute respiratory failure with hypoxia secondary to bilateral COVID 19 pneumonia Alzheimer dementia HTN DM Type 2 BPH Hyperlipidemia Plan: Acute respiratory failure with hypoxia secondary to bilateral COVID 19 pneumonia: Patient on BiPAP today. Patient had some agitation Overnite. Patient required Haldol and Ativan. Patient arousable. Will monitor closely. Aspiration precaution in place. Continue current medication. Spoke with family the other day. They are in agreement with skilled placement. Will discuss with social work. Patient needs to be able to get on nasal cannula pay for this can happen. Slow progress noted. Alzheimer dementia: Overall stable. Continue with mood stabilizers. HTN: Continue medication DM Type 2: Continue Accu-Cheks. Continue to adjust medication. Maintain adequate control of blood sugar. BPH: Continue medication Hyperlipidemia: continue medication Time Spent Managing Pts Care (In Minutes): 55
--- NOTE | 2020-07-31 16:35 | P.PN ---
Subjective Date of Service: 07/30/20 Chief Complaint: Respiratory failure from carrillo virus [place] and requiring high levels of oxygen has not very responsive or cooperative not eating very much Review of Systems General: Weakness Respiratory: Shortness of Breath Physical Examination - Vital Signs Temperature: 96.9 F Blood Pressure: 152/79 Pulse: 90 Respirations: 25 Pulse Ox (%): 96 - Studies Medications List Reviewed: Yes Assessment & Plan - Problems (Diagnosis) (1) Acute respiratory failure due to severe acute respiratory syndrome coronavirus 2 (SARS-CoV-2) infection Current Visit: Yes Status: Acute Plan: Respiratory failure continued to wean down his oxygen oxygen requirements have been improving patient is not eating much resume IV fluids white count normal
[2020-07-31] MEDS: D5 0.45 NS 1,000 ML IV SCH (17:14)
[2020-07-31] MEDS: TAMSULOSIN 0.4 MG SR CAP PO SCH ×2 (19:27→21:16)
[2020-07-31] MEDS: ATORVASTATIN 10 MG TAB PO SCH ×2 (19:27→21:17)
[2020-07-31] MEDS: LORazepam 2 MG/ML VIAL IV PRN (21:16)
[2020-08-01 04:11] LABS: Absolute Lymphocytes (CBC) 0.3 K/uL (0.7-4.9); Basophils % 0.3 % (0-1.3); Hematocrit 29.3 % (39.6-49.0); Lymphocytes % 7.1 % (15.3-44.8); MPV 9.3 fL (7.6-11.3); RBC Red Blood Cell Count 3.27 M/uL (4.33-5.43)
[2020-08-01 04:35] LABS: C-Reactive Protein 16.1 mg/L (<3.00); Ferritin 341.3 ng/mL (26-388); Potassium 4.8 mmol/L (3.5-5.1)
[2020-08-01 05:38] LABS: Blood Morphology Comment NOT SEEN (NOT SEEN); Platelet Estimate ADEQ
[2020-08-01] MEDS: D5 0.45 NS 1,000 ML IV SCH (06:20)
[2020-08-01] MEDS: NA CHLORIDE 0.9% 1,000 ML IV SCH (07:30)
[2020-08-01] MEDS: GLUCERNA SHAKE 237 ML CAN PO SCH ×3 (08:00→17:00)
--- NOTE | 2020-08-01 08:58 | P.PN ---
Subjective Date of Service: 08/01/20 Primary Care Provider: Dr. Vences Chief Complaint: Respiratory failure from carrillo virus Subjective: Other (Nurses report some rectal bleeding but hemoglobin stable. Less agitation noted today. Patient on BiPAP 60% FiO2. Patient remains on IV fluids.) Physical Examination - Vital Signs Temperature: 96.5 F Blood Pressure: 151/73 Pulse: 75 Respirations: 24 Pulse Ox (%): 93 - Studies Medications List Reviewed: Yes Assessment & Plan Discharge Plan: Home Plan to discharge in: Greater than 2 days Physician Review Additional Text: Initial chief complaint: Shortness of breath secondary to COVID 19 Physical Exam: Patient is alert. Dementia noted. Less agitation noted today. Patient afebrile. Heart: Normal rhythm Lung: Patient currently on BiPAP at 60% FiO2. No significant distress noted.. GI: soft, nontender, nondistended EXT: good range of motion. Impression: Acute respiratory failure with hypoxia secondary to bilateral COVID 19 pneumonia Alzheimer dementia HTN DM Type 2 BPH Hyperlipidemia Acute on chronic renal disease stage III Rectal bleeding suspect hemorrhoid related Mild malnutrition Possible new sacral decubitus ulcer Plan: Acute respiratory failure with hypoxia secondary to bilateral COVID 19 pneumon ia: Patient remains on BiPAP at 60% Fi02. No significant agitation noted Overnite. Will limit medication for agitation. Rectal bleeding noted by nurse. Will monitor this closely. Hemoglobin stable. Recheck CBC at noontime. Will consider decreasing Lovenox. Will discuss with pulmonology. Nurses also report possible new sacral decubitus ulcer. This may be related to his mild m alnutrition. Will consult dietary to address daily needs. Will consult wound care to address ulcer. Will check pro calcitonin. Continue monitor closely. Spoke with daughter today. They do not want the patient to go to a skilled facility. Will continue to work with physical therapy if the patient is less agitated. This has been difficult due to his dementia. Will continue to monitor closely. Will discuss with pulmonology in detail. Will also discuss with nephrology. Alzheimer dementia: Overall stable. Continue with mood stabilizers. HTN: Continue medication. parameters in place. DM Type 2: Continue Accu-Cheks. Continue to adjust medication. Maintain adequate control of blood sugar. BPH: Continue medication Hyperlipidemia: continue medication Acute on chronic renal disease stage III: Continue IV fluids. Will discuss [facility] nephrology. Rectal bleeding suspect hemorrhoid related: Will monitor this closely. Recheck CBC later today. Consider decreasing Lovenox. Will discuss with pulmonology. Mild malnutrition: Will have dietary address daily needs. Patient on IV fluids. Possible new sacral decubitus ulcer: Will have wound care address and evaluate and treat. Time Spent Managing Pts Care (In Minutes): 55
[2020-08-01] MEDS: THIAMINE HCL 100 MG TABLET PO SCH ×2 (09:00→20:48)
[2020-08-01] MEDS: CALCITROL 0.25 MCG CAP PO SCH (09:00)
[2020-08-01] MEDS: ASCORBIC ACID 500 MG TABLET PO SCH ×3 (09:00→20:48)
[2020-08-01] MEDS: VITAMIN D 1000 UNIT TAB PO SCH (09:00)
[2020-08-01] MEDS: FLUCONAZOLE 100 MG TAB PO SCH (09:00)
[2020-08-01] MEDS: ZINC SULFATE 220 MG CAP PO SCH (09:00)
[2020-08-01] MEDS: FAMOTIDINE 20 MG TAB PO SCH ×2 (09:00→20:48)
[2020-08-01] MEDS: DOCUSATE NA 100 MG CAP PO SCH (09:00)
[2020-08-01] MEDS: FOLIC ACID 1 MG TABLET PO SCH (09:00)
[2020-08-01] MEDS: ENOXAPARIN 40 MG/0.4 ML SQ SCH (09:51)
[2020-08-01] MEDS: METHYLPREDNISOLONE 125 MG INJ IV SCH ×2 (09:51→20:48)
[2020-08-01] MEDS: INSULIN 70/30 100 UNITS/ML SQ SCH ×2 (09:55→16:30)
[2020-08-01] MEDS: LIDOCAINE 4% PATCH TOP SCH (09:56)
[2020-08-01] MEDS: QUETIAPINE 25 MG TAB PO SCH ×2 (09:56→20:48)
[2020-08-01] MEDS: carvediloL 12.5 MG TAB PO SCH (09:56)
[2020-08-01] MEDS: AMLODIPINE 10 MG TAB PO SCH (09:56)
--- NOTE | 2020-08-01 10:27 | RAD REPORT ---
EXAM DESCRIPTION: RAD - Abdomen 1 View (KUB) - 08/01/2020 10:16 am CLINICAL HISTORY: blood in stool COMPARISON: Chest Single View dated 07/28/2020 FINDINGS: The gas pattern is nonspecific. Patient has substantial degradation the imaging due to res piratory movement. No dilated bowel loops, free air or pneumatosis suspected. Moderate stool volume d istends the rectum. No suspicious calcifications. Left lung parenchymal opacification is suspected but not adequately visualized on this motion degrad ed study. No significant bone finding. IMPRESSION: Motion degraded study shows no obstruction, free air or pneumatosis.
[2020-08-01 12:36] LABS: Absolute Lymphocytes (CBC) 0.3 K/uL (0.7-4.9); Basophils % 0.6 % (0-1.3); Hematocrit 31.5 % (39.6-49.0); Lymphocytes % 7.1 % (15.3-44.8); MPV 9.6 fL (7.6-11.3); RBC Red Blood Cell Count 3.44 M/uL (4.33-5.43)
[2020-08-01 12:40] LABS: Protime INR 1.07
[2020-08-01] MEDS: ATORVASTATIN 10 MG TAB PO SCH (20:48)
[2020-08-01] MEDS: TAMSULOSIN 0.4 MG SR CAP PO SCH (20:48)
[2020-08-02] MEDS: LORazepam 2 MG/ML VIAL IV PRN ×3 (00:26→22:50)
[2020-08-02] MEDS ORDERED: MORPHINE 2 MG/ML SYR IV ONE (02:52)
[2020-08-02] MEDS: NA CHLORIDE 0.9% 1,000 ML IV SCH (03:00)
[2020-08-02] MEDS ORDERED: MORPHINE 2 MG/ML SYR ONE (03:13)
[2020-08-02 04:46] LABS: Absolute Lymphocytes (CBC) 0.4 K/uL (0.7-4.9); Basophils % 0.2 % (0-1.3); Hematocrit 30.4 % (39.6-49.0); Lymphocytes % 10.6 % (15.3-44.8); MPV 9.6 fL (7.6-11.3); RBC Red Blood Cell Count 3.33 M/uL (4.33-5.43)
[2020-08-02 05:03] LABS: C-Reactive Protein 8.96 mg/L (<3.00); Ferritin 313.8 ng/mL (26-388); Magnesium 2.5 mg/dL (1.8-2.4); Potassium 4.4 mmol/L (3.5-5.1)
[2020-08-02] MEDS: INSULIN 70/30 100 UNITS/ML SQ SCH ×2 (07:30→16:30)
[2020-08-02] MEDS: GLUCERNA SHAKE 237 ML CAN PO SCH ×3 (08:00→17:00)
[2020-08-02] MEDS: AMLODIPINE 10 MG TAB PO SCH (09:00)
[2020-08-02] MEDS: ASCORBIC ACID 500 MG TABLET PO SCH ×3 (09:00→21:50)
[2020-08-02] MEDS: FLUCONAZOLE 100 MG TAB PO SCH (09:00)
[2020-08-02] MEDS: METHYLPREDNISOLONE 125 MG INJ IV SCH (09:00)
[2020-08-02] MEDS: CALCITROL 0.25 MCG CAP PO SCH (09:00)
[2020-08-02] MEDS: ZINC SULFATE 220 MG CAP PO SCH (09:00)
[2020-08-02] MEDS: QUETIAPINE 25 MG TAB PO SCH ×2 (09:00→21:50)
[2020-08-02] MEDS: FOLIC ACID 1 MG TABLET PO SCH (09:00)
[2020-08-02] MEDS: FAMOTIDINE 20 MG TAB PO SCH ×2 (09:00→21:50)
[2020-08-02] MEDS: carvediloL 12.5 MG TAB PO SCH (09:00)
[2020-08-02] MEDS: VITAMIN D 1000 UNIT TAB PO SCH (09:00)
[2020-08-02] MEDS: ENOXAPARIN 40 MG/0.4 ML SQ SCH ×2 (09:00→11:18)
[2020-08-02] MEDS: THIAMINE HCL 100 MG TABLET PO SCH ×2 (09:00→21:50)
[2020-08-02] MEDS: DOCUSATE NA 100 MG CAP PO SCH (09:00)
[2020-08-02] MEDS: LIDOCAINE 4% PATCH TOP SCH (10:32)
[2020-08-02] MEDS: MEDIHONEY 44 ML TOPICAL TUBE TOP SCH (10:32)
--- NOTE | 2020-08-02 12:34 | P.PN ---
Subjective Date of Service: 08/02/20 Primary Care Provider: Dr. Vences Chief Complaint: Respiratory failure from carrillo virus Patient is noncooperative a becomes very agitated saturation satisfactory at rest on BiPAP or once he is awake and becomes agitated the decline is refusing to eat and drink Review of Systems is unable to be obtained Physical Examination - Vital Signs Temperature: 98.3 F Blood Pressure: 154/92 Pulse: 86 Respirations: 33 Pulse Ox (%): 88 - Physical Exam General: Unresponsive Respiratory: Clear to auscultation bilaterally, Diminished - Studies Medications List Reviewed: Yes Assessment & Plan - Problems (Diagnosis) (1) Acute respiratory failure due to severe acute respiratory syndrome coronavirus 2 (SARS-CoV-2) infection Current Visit: Yes Status: Acute Plan: Respiratory failure patient is noncooperative is not eating and drinking much renal function is improving patient is getting progressively more dehydrated was hypernatremia for D5 water blood sugars are reasonably control no evidence of GI bleeding increase anticoagulation prognosis very poor
[2020-08-02] MEDS: D5W 1,000 ML IV SCH (13:00)
--- NOTE | 2020-08-02 13:51 | P.PN ---
Subjective Date of Service: 08/02/20 Primary Care Provider: Dr. Vences Chief Complaint: Respiratory failure from carrillo virus Subjective: Other (Patient remains on BiPAP. Poor oral intake noted) Physical Examination - Vital Signs Temperature: 98.3 F Blood Pressure: 154/92 Pulse: 86 Respirations: 33 Pulse Ox (%): 88 - Studies Medications List Reviewed: Yes Assessment & Plan Discharge Plan: Home Plan to discharge in: Greater than 2 days Physician Review Additional Text: Initial chief complaint: Shortness of breath secondary to COVID 19 Physical Exam: Patient is alert. Dementia noted. Less agitation noted today. Patient afebrile. Heart: Normal rhythm Lung: Patient currently on BiPAP at 60% FiO2. No significant distress noted.. GI: soft, nontender, nondistended EXT: good range of motion. Impression: Acute respiratory failure with hypoxia secondary to bilateral COVID 19 pneumonia Alzheimer dementia HTN DM Type 2 BPH Hyperlipidemia Acute on chronic renal disease stage III Rectal bleeding suspect hemorrhoid related Mild malnutrition Possible new sacral decubitus ulcer Plan: Acute respiratory failure with hypoxia secondary to bilateral COVID 19 pneumonia: Patient remains on BiPAP at 60% Fi02. Poor oral intake noted increase intake. Dietary recommending Dobhoff but this has been tried in the past without success as the patient was pulling on it. Pulmonology has adjusted IV fluids due to hypernatremia. Continue with current treatment for pneumonia. Continue to wean off BiPAP. Wound care to continue therapy. Will monitor closely. Alzheimer dementia: Overall stable. Continue with mood stabilizers. HTN: Continue medication. parameters in place. DM Type 2: Continue Accu-Cheks. IV fluids adjusted. Will need to monitor for hyperglycemia. Continue to adjust medication. Maintain adequate control of blood sugar. BPH: Continue medication Hyperlipidemia: continue medication Acute on chronic renal disease stage III with hypernatremia: IV fluids adjusted. Will discuss with nephrology. Rectal bleeding suspect hemorrhoid related: No rectal bleeding noted. Case discussed with pulmonology. Daughter recommends to increase dose of Lovenox due to risk factors. Will monitor for any bleeding. Mild malnutrition: Will have dietary address daily needs. Pulmonology adjusted medication-fluids. Possible new sacral decubitus ulcer: Will have wound care address and evaluate and treat. Time Spent Managing Pts Care (In Minutes): 55
[2020-08-02] MEDS: ATORVASTATIN 10 MG TAB PO SCH (21:50)
[2020-08-02] MEDS: METHYLPREDNISOLONE 40 MG INJ IV SCH (21:51)
[2020-08-02] MEDS: TAMSULOSIN 0.4 MG SR CAP PO SCH (21:51)
[2020-08-02] MEDS: ACETAMINOPHEN 500 MG TAB PO PRN (21:56)
[2020-08-03 04:44] LABS: Absolute Lymphocytes (CBC) 0.3 K/uL (0.7-4.9); Basophils % 0.2 % (0-1.3); Lymphocytes % 10.7 % (15.3-44.8); MPV 9.7 fL (7.6-11.3); RBC Red Blood Cell Count 3.38 M/uL (4.33-5.43)
[2020-08-03 04:56] LABS: C-Reactive Protein 10.7 mg/L (<3.00); Magnesium 2.6 mg/dL (1.8-2.4); Potassium 4.5 mmol/L (3.5-5.1)
[2020-08-03] MEDS: INSULIN 70/30 100 UNITS/ML SQ SCH ×2 (07:30→17:32)
[2020-08-03] MEDS: GLUCERNA SHAKE 237 ML CAN PO SCH ×3 (08:00→17:18)
[2020-08-03] MEDS: D5W 1,000 ML IV SCH ×2 (09:00→12:56)
[2020-08-03] MEDS: LIDOCAINE 4% PATCH TOP SCH ×2 (09:00→12:56)
[2020-08-03] MEDS: METHYLPREDNISOLONE 40 MG INJ IV SCH ×2 (09:00→20:30)
[2020-08-03] MEDS: CALCITROL 0.25 MCG CAP PO SCH (09:00)
[2020-08-03] MEDS: FLUCONAZOLE 100 MG TAB PO SCH (09:00)
[2020-08-03] MEDS: ENOXAPARIN 40 MG/0.4 ML SQ SCH (09:00)
[2020-08-03] MEDS: THIAMINE HCL 100 MG TABLET PO SCH ×2 (09:00→20:29)
[2020-08-03] MEDS: FOLIC ACID 1 MG TABLET PO SCH (09:00)
[2020-08-03] MEDS: DOCUSATE NA 100 MG CAP PO SCH (09:00)
[2020-08-03] MEDS: AMLODIPINE 10 MG TAB PO SCH ×2 (09:00→12:31)
[2020-08-03] MEDS: carvediloL 12.5 MG TAB PO SCH ×2 (09:00→12:31)
[2020-08-03] MEDS: QUETIAPINE 25 MG TAB PO SCH ×2 (09:00→20:26)
[2020-08-03] MEDS: FAMOTIDINE 20 MG TAB PO SCH ×2 (09:00→20:26)
[2020-08-03] MEDS: ASCORBIC ACID 500 MG TABLET PO SCH ×3 (09:00→20:28)
[2020-08-03] MEDS: VITAMIN D 1000 UNIT TAB PO SCH (09:00)
[2020-08-03] MEDS: ZINC SULFATE 220 MG CAP PO SCH (09:00)
[2020-08-03] MEDS ORDERED: BENZONATATE 100 MG CAP PO PRN (09:34)
[2020-08-03] MEDS ORDERED: WATER FOR INJ,STERILE 10 ML IM PRN (09:44)
--- NOTE | 2020-08-03 09:49 | P.PN ---
Subjective Date of Service: 08/03/20 Primary Care Provider: Dr. Vences Chief Complaint: Respiratory failure from carrillo virus Subjective: No new changes Physical Examination - Vital Signs Temperature: 97.7 F Blood Pressure: 184/99 Pulse: 89 Respirations: 20 Pulse Ox (%): 94 - Studies Medications List Reviewed: Yes Assessment & Plan Discharge Plan: Home Plan to discharge in: Greater than 2 days Physician Review Additional Text: Initial chief complaint: Shortness of breath secondary to COVID 19 Physical Exam: Patient is alert. Dementia noted. Less agitation noted today. Patient afebrile. Heart: Normal rhythm Lung: Patient currently on BiPAP at 65% FiO2. No significant distress noted.. GI: soft, nontender, nondistended EXT: good range of motion. Impression: Acute respiratory failure with hypoxia secondary to bilateral COVID 19 pneumonia Alzheimer dementia HTN DM Type 2 BPH Hyperlipidemia Acute on chronic renal disease stage III Rectal bleeding suspect hemorrhoid related Mild malnutrition Possible new sacral decubitus ulcer Thrombocytopenia likely related to above Plan: Acute respiratory failure with hypoxia secondary to bilateral COVID 19 pneumonia: Patient remains on BiPAP at 65% Fi02. Continue to encourage oral intake. Continue D5W. Continue to monitor hypernatremia. Respiratory to wean off BiPAP. Platelet count low. Hold Lovenox for today. Recheck LDH, platelet count tomorrow. Haptoglobin pending. Peripheral smear reviewed. No schistocyte noted. Continue current plan of care. Alzheimer dementia: Overall stable. Continue with mood stabilizers. HTN: Continue medication. parameters in place. DM Type 2: Continue Accu-Cheks. IV fluids adjusted. Will need to monitor for hyperglycemia. Continue to adjust medication. Maintain adequate control of blood sugar. BPH: Continue medication Hyperlipidemia: continue medication Acute on chronic renal disease stage III with hypernatremia: Patient remains on D5W. Will monitor closely. Rectal bleeding suspect hemorrhoid related: No rectal bleeding noted. Case discussed with pulmonology. Hold Lovenox if platelet count less than 100. Will monitor for any bleeding. Mild malnutrition: Will have dietary address daily needs. Pulmonology adjusted medication-fluids. Possible new sacral decubitus ulcer: Will have wound care address and evaluate and treat. Thrombocytopenia likely related to above: Will monitor closely. Recheck lab tomorrow. Whole Lovenox if platelet count less than 100. Time Spent Managing Pts Care (In Minutes): 55
[2020-08-03] MEDS ORDERED: D50W 25 GM/50 ML VIAL IV PRN (10:03)
[2020-08-03] MEDS: MEDIHONEY 44 ML TOPICAL TUBE TOP SCH (11:08)
--- NOTE | 2020-08-03 14:42 | P.PN ---
Date of Service: 08/03/20 Progress Note Dictated. Reviewed with RNLiliana. increase d5w to 75ccs/hour for 1 litre then go back to 50ccs/hour. still requiring high oxygen supplementation/critical with covid 19 and respiratory failure.
[2020-08-03] MEDS ORDERED: D5W 1,000 ML IV SCH ×2 (15:00)
--- NOTE | 2020-08-03 19:31 | PN ---
Subjective: The patient is alert, awake, but not able to answer questions appropriately due to his q uestion baseline dementia, question due to difficulty with breathing. The patient has an oxygen on w ith mask non-rebreather currently, still having some difficulty with breathing and as he speaks, he g ets short of breath, unable to complete sentences. Objective: Vital Signs: His vitals look stable. Blood pressure is 132/62, pulse is 90 to 95 and re gular, respirations are around 18 to 20, and afebrile, O2 sats 100%, but he is currently on a non-jake reather, getting oxygen with face mask. He does have otherwise stable vitals except for his breathin g situation. Lungs: Coarse breath sounds with decreased breath sounds at the bases. He does not have good air mo vement. Abdomen: Soft. Extremities: No edema. Heart: Sounds are regular. Medications: Reviewed. Laboratory Data: Reviewed. Labs show WBC count of 2.9, hemoglobin 10.2, hematocrit 31, platelet cou nt of 97. His sodium has continued to come up with sodium today at 147, potassium 4.5, chloride 112, bicarb is 31, BUN is 51, creatinine is 1.53. Assessment And Plan: The patient with history of COVID-19 respiratory bronchitis with question pneum onia, currently being followed by gin inspector Pulmonary/Critical Care. Dr. Louise appreciate their input and assistance. The patient is requiring high level of oxygen. His volume status seems to be close to euvolemic. If anything, he is slightly volume depleted, especially free water depleted. Tracy king has not been eating and drinking much due to his high oxygen requirement. At this point, his sodiu m has creeped up to 147. He is currently on 50 cc of D5W, that has been started by Dr. Louise. Ag ree with this D5W replenishing free water, we will go ahead and increase it to 75 cc/hour for 1 L and then revert back to 50 cc/hour of D5W and assess with BMP to see if further free water repletion adj ustment is needed in the near future. I will continue to monitor closely. The patient's condition c ontinues to be critical with significant respiratory failure, most likely secondary to COVID-19 as hi s volume status seems not to be overloaded at this point. His acute kidney injury could be from the COVID-19 infection, also due to some volume depletion. Appreciate your consultation. Do not hesitate to call me if any questions. /MELE Voice ID: [id number] Report ID: [id number]
[2020-08-03] MEDS: TAMSULOSIN 0.4 MG SR CAP PO SCH (20:25)
[2020-08-03] MEDS: LACTULOSE 20 GM/30 ML UCUP PO PRN (20:25)
[2020-08-03] MEDS ORDERED: METHYLPREDNISOLONE 40 MG INJ ONE (20:28)
[2020-08-03] MEDS: ATORVASTATIN 10 MG TAB PO SCH (20:28)
[2020-08-03] MEDS: LORazepam 2 MG/ML VIAL IV PRN (22:52)
[2020-08-03] MEDS ORDERED: LORazepam 2 MG/ML VIAL ONE (23:07)
[2020-08-04 05:04] LABS: Absolute Lymphocytes (CBC) 0.3 K/uL (0.7-4.9); Basophils % 0.1 % (0-1.3); Hematocrit 29.2 % (39.6-49.0); Lymphocytes % 11.2 % (15.3-44.8); MPV 9.9 fL (7.6-11.3); RBC Red Blood Cell Count 3.18 M/uL (4.33-5.43)
[2020-08-04 05:13] LABS: Protime INR 0.99
[2020-08-04 05:23] LABS: Ferritin 258.1 ng/mL (26-388); Magnesium 2.5 mg/dL (1.8-2.4)
[2020-08-04 05:38] LABS: Anisocytosis 1+; Blood Morphology Comment NOTED (NOT SEEN); Hypochromasia 1+; Ovalocytes 1+; Platelet Estimate DECR; White Blood Cell Scan OK (OK)
[2020-08-04] MEDS: GLUCERNA SHAKE 237 ML CAN PO SCH ×3 (08:00→17:00)
[2020-08-04] MEDS: ENOXAPARIN 40 MG/0.4 ML SQ SCH (09:00)
[2020-08-04] MEDS: MEDIHONEY 44 ML TOPICAL TUBE TOP SCH (09:00)
[2020-08-04] MEDS: THIAMINE HCL 100 MG TABLET PO SCH ×2 (09:00→21:07)
[2020-08-04] MEDS: FAMOTIDINE 20 MG TAB PO SCH ×2 (10:08→20:55)
[2020-08-04] MEDS: carvediloL 12.5 MG TAB PO SCH (10:08)
[2020-08-04] MEDS: ASCORBIC ACID 500 MG TABLET PO SCH ×3 (10:10→21:00)
[2020-08-04] MEDS: ZINC SULFATE 220 MG CAP PO SCH (10:10)
[2020-08-04] MEDS: FLUCONAZOLE 100 MG TAB PO SCH (10:10)
[2020-08-04] MEDS: DOCUSATE NA 100 MG CAP PO SCH (10:11)
[2020-08-04] MEDS: AMLODIPINE 10 MG TAB PO SCH (10:11)
[2020-08-04] MEDS: VITAMIN D 1000 UNIT TAB PO SCH (10:11)
[2020-08-04] MEDS: FOLIC ACID 1 MG TABLET PO SCH (10:11)
[2020-08-04] MEDS: INSULIN 70/30 100 UNITS/ML SQ SCH ×2 (10:58→17:58)
[2020-08-04] MEDS: METHYLPREDNISOLONE 40 MG INJ IV SCH ×2 (10:58→20:55)
[2020-08-04] MEDS: LIDOCAINE 4% PATCH TOP SCH (10:59)
[2020-08-04] MEDS: CALCITROL 0.25 MCG CAP PO SCH (10:59)
--- NOTE | 2020-08-04 11:01 | P.PN ---
Subjective Date of Service: 08/04/20 Primary Care Provider: Dr. Vences Chief Complaint: Respiratory failure from carrillo virus Subjective: Other (Patient appears improved. More alert. Patient on non- rebreather.) Physical Examination - Vital Signs Temperature: 97 F Blood Pressure: 170/79 Pulse: 96 Respirations: 26 Pulse Ox (%): 98 - Studies Medications List Reviewed: Yes Assessment & Plan Discharge Plan: Home Plan to discharge in: Greater than 2 days Physician Review Additional Text: Initial chief complaint: 85-year-old male presented with acute respiratory failure with hypoxia secondary to COVID 19 Physical Exam: Patient appears more alert. Patient denies any pain. Dementia noted. Less agitation noted today. Patient afebrile. Vital signs stable. Heart: Normal rhythm Lung: Patient wean down to non-rebreather. Was on BiPAP yesterday. No significant distress noted.. GI: soft, nontender, nondistended EXT: good range of motion. Impression: Acute respiratory failure with hypoxia secondary to bilateral COVID 19 pneumonia Alzheimer dementia HTN DM Type 2 BPH Hyperlipidemia Acute on chronic renal disease stage III Rectal bleeding suspect hemorrhoid related Mild malnutrition Possible new sacral decubitus ulcer Thrombocytopenia likely related to above Plan: Acute respiratory failure with hypoxia secondary to bilateral COVID 19 pneumonia: Patient on BiPAP yesterday. Now on non-rebreather. Oxygen saturations stable. Platelet count low. Continue to hold Lovenox. Will monitor platelet count. Continue IV Solu-Medrol. Patient on D5W due to hypernatremia. This has resolved. Will discuss with nephrology and pulmonology about adjustment in medication. Spoke with family earlier in the week. They did not desire skilled placement for the patient. Patient's progress has been poor. Continue with current plan of care. Will monitor closely. I will turn the service over to the hospitalist team tomorrow. Alzheimer dementia: Overall stable. Continue with mood stabilizers. HTN: Continue medication. parameters in place. DM Type 2: Continue Accu-Cheks. IV fluids adjusted by Nephrology and pulmonology. Will need to monitor for hyperglycemia. Continue to adjust medication. Maintain adequate control of blood sugar. BPH: Continue medication Hyperlipidemia: continue medication Acute on chronic renal disease stage III with hypernatremia: Nephrology continues to adjust medication.. Rectal bleeding suspect hemorrhoid related: No rectal bleeding noted. Case discussed with pulmonology. Hold Lovenox if platelet count less than 100. Will monitor for any bleeding. Mild malnutrition: Continue to have dietary address daily needs. Encourage oral intake. Possible new sacral decubitus ulcer: Will have wound care address and evaluate and treat. Thrombocytopenia likely related to above: Platelet count low. Continue to hold Lovenox. LDH improved. INR/PTT unchanged. Peripheral smear showed no schistocytes. Suspect thrombocytopenia related to above. Will monitor closely. Will monitor closely. Will discuss with pulmonology. Time Spent Managing Pts Care (In Minutes): 55
[2020-08-04] MEDS ORDERED: NACHLORIDE 0.45% 1,000 ML IV SCH (14:00)
[2020-08-04] MEDS ORDERED: D5W 1,000 ML IV SCH (15:00)
--- NOTE | 2020-08-04 18:26 | PN ---
Location: Patient was seen in 4th floor at [facility]. History Of Present Illness: Patient is an 85-year-old male. Patient is looking improved, compared t o yesterday. He is still on non-rebreather, but seems to be breathing better. He is able to respond better states that he is feeling well. Nods his head and seems to be more interactive, compared to yesterday. Physical Examination: Vital Signs: Reviewed. Blood pressure now is 146/73, pulse around 90-95 and regular, respirations a round 16-18. His O2 saturations are 97%. Still using non-rebreather. Lungs: With coarse sounds, but better air entry, compared to yesterday. Abdomen: Soft. Extremities: Reveal no edema. Cardiovascular: Heart sounds are regular. Assessment And Plan: Acute respiratory failure with COVID-19 pneumonia. Patient also with hypertens ion. Patient with acute renal failure with chronic kidney disease history. At this point, patient i s improving. His sodium has improved slightly compared to yesterday. He does not seem to be volume overloaded despite getting some D5W yesterday, which was for hydration. Continue patient with D5W at 50 cc an hour, but for now, increase it to about 75 cc an hour for 1 L and then revert back to 50 cc an hour. Recheck BMP tomorrow. Patient clinically seems to be improved. Continue to monitor close ly. Condition still guarded with high requirement for oxygen. Continue treatment with steroids. /EMLE Voice ID: [id number] Report ID: [id number]
[2020-08-04] MEDS: ATORVASTATIN 10 MG TAB PO SCH (20:55)
[2020-08-04] MEDS: TAMSULOSIN 0.4 MG SR CAP PO SCH (20:56)
[2020-08-05 04:40] LABS: Absolute Lymphocytes (CBC) 0.4 K/uL (0.7-4.9); Basophils % 0.2 % (0-1.3); Hematocrit 26.7 % (39.6-49.0); Lymphocytes % 11.6 % (15.3-44.8); MPV 9.3 fL (7.6-11.3); RBC Red Blood Cell Count 2.93 M/uL (4.33-5.43)
[2020-08-05 04:46] LABS: Protime INR 1.04
[2020-08-05 05:09] LABS: Bilirubin Total 0.9 mg/dL (0.2-1.0); C-Reactive Protein 13.6 mg/L (<3.00); Ferritin 268.9 ng/mL (26-388); Magnesium 2.4 mg/dL (1.8-2.4); Potassium 4.4 mmol/L (3.5-5.1)
[2020-08-05] MEDS: GLUCERNA SHAKE 237 ML CAN PO SCH ×3 (08:00→16:35)
[2020-08-05] MEDS: MEDIHONEY 44 ML TOPICAL TUBE TOP SCH (09:00)
[2020-08-05] MEDS: ENOXAPARIN 40 MG/0.4 ML SQ SCH ×2 (09:00→09:26)
[2020-08-05] MEDS: THIAMINE HCL 100 MG TABLET PO SCH ×3 (09:00→21:00)
[2020-08-05] MEDS: LIDOCAINE 4% PATCH TOP SCH (09:25)
[2020-08-05] MEDS: ASCORBIC ACID 500 MG TABLET PO SCH ×3 (09:25→22:53)
[2020-08-05] MEDS: AMLODIPINE 10 MG TAB PO SCH (09:25)
[2020-08-05] MEDS: FLUCONAZOLE 100 MG TAB PO SCH (09:25)
[2020-08-05] MEDS: CALCITROL 0.25 MCG CAP PO SCH (09:26)
[2020-08-05] MEDS: FAMOTIDINE 20 MG TAB PO SCH ×2 (09:26→22:51)
[2020-08-05] MEDS: VITAMIN D 1000 UNIT TAB PO SCH (09:26)
[2020-08-05] MEDS: DOCUSATE NA 100 MG CAP PO SCH (09:26)
[2020-08-05] MEDS: INSULIN 70/30 100 UNITS/ML SQ SCH ×2 (09:26→16:34)
[2020-08-05] MEDS: METHYLPREDNISOLONE 40 MG INJ IV SCH ×2 (09:27→22:52)
[2020-08-05] MEDS: ZINC SULFATE 220 MG CAP PO SCH (09:32)
[2020-08-05] MEDS: carvediloL 12.5 MG TAB PO SCH (09:32)
[2020-08-05] MEDS: FOLIC ACID 1 MG TABLET PO SCH (09:53)
[2020-08-05] MEDS: HYDROCODONE/APAP 5/325 MG TAB PO PRN (09:53)
[2020-08-05] MEDS: D5W 1,000 ML IV SCH ×2 (14:00→18:44)
--- NOTE | 2020-08-05 21:20 | P.PN ---
Date of Service: 08/05/20 Vital Signs Temp Pulse Resp BP Pulse Ox 96.5 F L 63 20 148/88 H 96 08/05/20 20:00 08/05/20 20:00 08/05/20 20:00 08/05/20 20:00 08/05/20 20:00 Medications Hydrocodone Bitart/Acetaminophen (Hydrocodone/Apap 5/325 Mg Tab) 1 tab PO Q6H PRN PRN Reason: Pain scale 5-7 (Moderate) Last Admin: 08/05/20 09:53 Dose: 1 tab Documented by: Amlodipine Besylate (Amlodipine 10 Mg Tab) 10 mg PO DAILY [facility] Last Admin: 08/05/20 09:25 Dose: 10 mg Documented by: Ascorbic Acid (Ascorbic Acid 500 Mg Tablet) 500 mg PO TID [facility] Last Admin: 08/05/20 12:43 Dose: 500 mg Documented by: Atorvastatin Calcium (Atorvastatin 10 Mg Tab) 10 mg PO BEDTIME [facility] Last Admin: 08/04/20 20:55 Dose: 10 mg Documented by: Benzonatate (Benzonatate 100 Mg Cap) 200 mg PO Q4HP PRN PRN Reason: COUGH Calcitriol (Calcitrol 0.25 Mcg Cap) 0.5 mcg PO DAILY [facility] Last Admin: 08/05/20 09:26 Dose: 0.5 mcg Documented by: Carvedilol (Carvedilol 12.5 Mg Tab) 12.5 mg PO DAILY [facility] Last Admin: 08/05/20 09:32 Dose: 12.5 mg Documented by: Cholecalciferol (Vitamin D 1000 Unit Tab) 2,000 unit PO DAILY [facility] Last Admin: 08/05/20 09:26 Dose: 2,000 unit Documented by: Dextrose (D50w 25 Gm/50 Ml Vial) 12.5 gm IV PRN PRN; Protocol PRN Reason: HYPOGLYCEMIA Docusate Sodium (Docusate Na 100 Mg Cap) 100 mg PO DAILY [facility] Last Admin: 08/05/20 09:26 Dose: 100 mg Documented by: Emollient Gel (Medihoney 44 Ml Topical Tube) 1 appl TOP DAILY [facility] Last Admin: 08/05/20 09:00 Dose: 1 appl Documented by: Enoxaparin Sodium (Enoxaparin 40 Mg/0.4 Ml) 40 mg SQ DAILY [facility] Last Admin: 08/05/20 09:00 Dose: Not Given Documented by: Enteral Nutritional Formula (Glucerna Shake 237 Ml Can) 237 ml PO TIDWM [facility] Last Admin: 08/05/20 16:35 Dose: 237 ml Documented by: Famotidine (Famotidine 20 Mg Tab) 20 mg PO BID [facility]; Protocol Last Admin: 08/05/20 09:26 Dose: 20 mg Documented by: Fluconazole (Fluconazole 100 Mg Tab) 100 mg PO DAILY [facility]; Protocol Last Admin: 08/05/20 09:25 Dose: 100 mg Documented by: Folic Acid (Folic Acid 1 Mg Tablet) 1 mg PO DAILY [facility] Last Admin: 08/05/20 09:53 Dose: 1 mg Documented by: Glucagon (Glucagon 1 Mg/Vial) 1 mg IM 1X PRN; Protocol PRN Reason: HYPOGLYCEMIA Dextrose/Water (Dextrose In Water (1-Liter)) 1,000 mls @ 50 mls/hr IV .Q20H [facility] Last Admin: 08/05/20 18:44 Dose: 1,000 mls Documented by: Insulin Human Isoph/Insulin Regular (Insulin 70/30 100 Units/Ml) 10 unit SQ BIDAC [facility] Last Admin: 08/05/20 16:34 Dose: 10 units Documented by: Lactulose (Lactulose 20 Gm/30 Ml Ucup) 10 gm PO BID PRN PRN Reason: CONSTIPATION Last Admin: 08/03/20 20:25 Dose: 10 gm Documented by: Lidocaine (Lidocaine 4% Patch) 1 patch TOP DAILY [facility] Last Admin: 08/05/20 09:25 Dose: 1 patch Documented by: Lorazepam (Lorazepam 2 Mg/Ml Vial) 0.25 mg IV TIDP PRN PRN Reason: ANXIETY Methylprednisolone Sodium Succinate (Methylprednisolone 40 Mg Inj) 40 mg IV BID [facility] Last Admin: 08/05/20 09:27 Dose: 40 mg Documented by: Sodium Chloride (Sodium Chloride 0.9% 10ml Inj) 10 ml IV UD PRN PRN Reason: Diluant Stop: 08/11/20 16:17 Sterile Water (Water For Inj,Sterile 10 Ml) 1.2 ml IM UD PRN PRN Reason: DILUTION OF MED Tamsulosin HCl (Tamsulosin 0.4 Mg Sr Cap) 0.4 mg PO BEDTIME [facility] Last Admin: 08/04/20 20:56 Dose: 0.4 mg Documented by: Thiamine HCl (Thiamine Hcl 100 Mg Tablet) 200 mg PO BID [facility] Last Admin: 08/05/20 12:51 Dose: 200 mg Documented by: Zinc Sulfate (Zinc Sulfate 220 Mg Cap) 220 mg PO DAILY [facility] Last Admin: 08/05/20 09:32 Dose: 220 mg Documented by: Microbiology Results 07/03/20 18:00 Blood - Blood Aerobic Blood Culture - Final No growth in 5 days. 07/03/20 18:00 Blood - Blood Anaerobic Blood Culture - Final No growth in 5 days. 07/03/20 17:00 Blood - Blood Aerobic Blood Culture - Final No growth in 5 days. 07/03/20 17:00 Blood - Blood Anaerobic Blood Culture - Final No growth in 5 days. 07/03/20 18:30 Clean Catch Urine [place] Count - Final No growth. 07/03/20 18:30 Clean Catch Urine - Final No growth. Assessment/ Plan: Nephrology No acute cardiac or pulmonary complaints. +CASTANON Weakness and fatigue No acute events overnight. Vitals, medications, blood work and imaging reviewed in the chart. NAD. MMM. Neck supple. CTA. RRR. Soft Abd. No C/C/E. No rash. Somnolent. Normal Speech. A/P: Continue the current POC and Medications other than the changes listed. AM Labs PRN. Recommend daily weight. Please see the orders for complete details. DOMONIQUE CKD 3B with protienuria -No NSAIDs Hyponatremia Hypocalcemia -Continue Vitamin D -Continue Calcitriol HTN with CKD/ CHF -Continue Amlodipine and Coreg Diastolic CHF, chronic -Continue Coreg DM II with CKD -Wean steroids as tolerated Moderate malnutrition -Encourage nutrition -Recommend protein supplementation Anemia in chronic illness GI bleed -Retacrit PRN BPH with LUTS -Continue Flomax Acute hypoxic respiratory failure due to COVID-19 -Continue steroid therapy -Wean Oxygen as tolerated.
[2020-08-05] MEDS: THIAMINE HCL 100 MG TABLET ONE ×2 (22:50→22:53)
[2020-08-05] MEDS: TAMSULOSIN 0.4 MG SR CAP PO SCH (22:51)
[2020-08-05] MEDS: ATORVASTATIN 10 MG TAB PO SCH (22:51)
[2020-08-06] MEDS: ZINC SULFATE 220 MG CAP PO SCH (09:00)
[2020-08-06] MEDS: FLUCONAZOLE 100 MG TAB PO SCH (09:00)
[2020-08-06] MEDS: ASCORBIC ACID 500 MG TABLET PO SCH ×3 (09:00→23:00)
[2020-08-06] MEDS: ENOXAPARIN 40 MG/0.4 ML SQ SCH (09:00)
[2020-08-06] MEDS: METHYLPREDNISOLONE 40 MG INJ IV SCH ×2 (09:00→22:59)
[2020-08-06] MEDS: INSULIN 70/30 100 UNITS/ML SQ SCH ×2 (09:47→17:16)
[2020-08-06] MEDS: GLUCERNA SHAKE 237 ML CAN PO SCH ×3 (09:47→17:20)
[2020-08-06] MEDS: LIDOCAINE 4% PATCH TOP SCH (09:48)
[2020-08-06] MEDS: DOCUSATE NA 100 MG CAP PO SCH (09:48)
[2020-08-06] MEDS: THIAMINE HCL 100 MG TABLET PO SCH ×2 (09:49→22:59)
[2020-08-06] MEDS: AMLODIPINE 10 MG TAB PO SCH (09:49)
[2020-08-06] MEDS: carvediloL 12.5 MG TAB PO SCH (09:50)
[2020-08-06] MEDS: VITAMIN D 1000 UNIT TAB PO SCH (09:50)
[2020-08-06] MEDS: CALCITROL 0.25 MCG CAP PO SCH (09:50)
[2020-08-06] MEDS: FAMOTIDINE 20 MG TAB PO SCH ×2 (09:50→22:59)
[2020-08-06] MEDS: FOLIC ACID 1 MG TABLET PO SCH (09:51)
[2020-08-06] MEDS: MEDIHONEY 44 ML TOPICAL TUBE TOP SCH (09:52)
[2020-08-06] MEDS: D5W 1,000 ML IV SCH (10:00)
--- NOTE | 2020-08-06 20:24 | P.PN ---
Date of Service: 08/06/20 Vital Signs Temp Pulse Resp BP Pulse Ox 97.4 F 79 20 133/64 91 08/06/20 16:00 08/06/20 16:00 08/06/20 16:00 08/06/20 16:00 08/06/20 16:00 Medications Hydrocodone Bitart/Acetaminophen (Hydrocodone/Apap 5/325 Mg Tab) 1 tab PO Q6H PRN PRN Reason: Pain scale 5-7 (Moderate) Last Admin: 08/05/20 09:53 Dose: 1 tab Documented by: Amlodipine Besylate (Amlodipine 10 Mg Tab) 10 mg PO DAILY [facility] Last Admin: 08/06/20 09:49 Dose: 10 mg Documented by: Ascorbic Acid (Ascorbic Acid 500 Mg Tablet) 500 mg PO TID [facility] Last Admin: 08/06/20 13:13 Dose: 500 mg Documented by: Atorvastatin Calcium (Atorvastatin 10 Mg Tab) 10 mg PO BEDTIME [facility] Last Admin: 08/05/20 22:51 Dose: 10 mg Documented by: Benzonatate (Benzonatate 100 Mg Cap) 200 mg PO Q4HP PRN PRN Reason: COUGH Calcitriol (Calcitrol 0.25 Mcg Cap) 0.5 mcg PO DAILY [facility] Last Admin: 08/06/20 09:50 Dose: 0.5 mcg Documented by: Carvedilol (Carvedilol 12.5 Mg Tab) 12.5 mg PO DAILY [facility] Last Admin: 08/06/20 09:50 Dose: 12.5 mg Documented by: Cholecalciferol (Vitamin D 1000 Unit Tab) 2,000 unit PO DAILY [facility] Last Admin: 08/06/20 09:50 Dose: 2,000 unit Documented by: Dextrose (D50w 25 Gm/50 Ml Vial) 12.5 gm IV PRN PRN; Protocol PRN Reason: HYPOGLYCEMIA Docusate Sodium (Docusate Na 100 Mg Cap) 100 mg PO DAILY [facility] Last Admin: 08/06/20 09:48 Dose: 100 mg Documented by: Emollient Gel (Medihoney 44 Ml Topical Tube) 1 appl TOP DAILY [facility] Last Admin: 08/06/20 09:52 Dose: 1 appl Documented by: Enoxaparin Sodium (Enoxaparin 40 Mg/0.4 Ml) 40 mg SQ DAILY [facility] Last Admin: 08/06/20 09:00 Dose: Not Given Documented by: Enteral Nutritional Formula (Glucerna Shake 237 Ml Can) 237 ml PO TIDWM [facility] Last Admin: 08/06/20 17:20 Dose: 237 ml Documented by: Famotidine (Famotidine 20 Mg Tab) 20 mg PO BID [facility]; Protocol Last Admin: 08/06/20 09:50 Dose: 20 mg Documented by: Fluconazole (Fluconazole 100 Mg Tab) 100 mg PO DAILY [facility]; Protocol Last Admin: 08/06/20 09:00 Dose: 100 mg Documented by: Folic Acid (Folic Acid 1 Mg Tablet) 1 mg PO DAILY [facility] Last Admin: 08/06/20 09:51 Dose: 1 mg Documented by: Glucagon (Glucagon 1 Mg/Vial) 1 mg IM 1X PRN; Protocol PRN Reason: HYPOGLYCEMIA Dextrose/Water (Dextrose In Water (1-Liter)) 1,000 mls @ 50 mls/hr IV .Q20H [facility] Last Admin: 08/06/20 10:00 Dose: Not Given Documented by: Insulin Human Isoph/Insulin Regular (Insulin 70/30 100 Units/Ml) 10 unit SQ BIDAC [facility] Last Admin: 08/06/20 17:16 Dose: 215 units Documented by: Lactulose (Lactulose 20 Gm/30 Ml Ucup) 10 gm PO BID PRN PRN Reason: CONSTIPATION Last Admin: 08/03/20 20:25 Dose: 10 gm Documented by: Lidocaine (Lidocaine 4% Patch) 1 patch TOP DAILY [facility] Last Admin: 08/06/20 09:48 Dose: 1 patch Documented by: Lorazepam (Lorazepam 2 Mg/Ml Vial) 0.25 mg IV TIDP PRN PRN Reason: ANXIETY Methylprednisolone Sodium Succinate (Methylprednisolone 40 Mg Inj) 40 mg IV BID [facility] Last Admin: 08/06/20 09:00 Dose: 40 mg Documented by: Sodium Chloride (Sodium Chloride 0.9% 10ml Inj) 10 ml IV UD PRN PRN Reason: Diluant Stop: 08/11/20 16:17 Sterile Water (Water For Inj,Sterile 10 Ml) 1.2 ml IM UD PRN PRN Reason: DILUTION OF MED Tamsulosin HCl (Tamsulosin 0.4 Mg Sr Cap) 0.4 mg PO BEDTIME [facility] Last Admin: 08/05/20 22:51 Dose: 0.4 mg Documented by: Thiamine HCl (Thiamine Hcl 100 Mg Tablet) 200 mg PO BID [facility] Last Admin: 08/06/20 09:49 Dose: 200 mg Documented by: Zinc Sulfate (Zinc Sulfate 220 Mg Cap) 220 mg PO DAILY [facility] Last Admin: 08/06/20 09:00 Dose: 220 mg Documented by: Microbiology Results 07/03/20 18:00 Blood - Blood Aerobic Blood Culture - Final No growth in 5 days. 07/03/20 18:00 Blood - Blood Anaerobic Blood Culture - Final No growth in 5 days. 07/03/20 17:00 Blood - Blood Aerobic Blood Culture - Final No growth in 5 days. 07/03/20 17:00 Blood - Blood Anaerobic Blood Culture - Final No growth in 5 days. 07/03/20 18:30 Clean Catch Urine [place] Count - Final No growth. 07/03/20 18:30 Clean Catch Urine - Final No growth. Assessment/ Plan: Nephrology No acute cardiac or pulmonary complaints. +CASTANON Weakness and fatigue No acute events overnight. Vitals, medications, blood work and imaging reviewed in the chart. NAD. MMM. Neck supple. CTA. RRR. Soft Abd. No C/C/E. No rash. Somnolent. Normal Speech. A/P: Continue the current POC and Medications other than the changes listed. AM Labs PRN. Recommend daily weight. Please see the orders for complete details. DOMONIQUE CKD 3B with protienuria -No NSAIDs Hyponatremia Hypocalcemia -Continue Vitamin D -Continue Calcitriol HTN with CKD/ CHF -Continue Amlodipine and Coreg Diastolic CHF, chronic -Continue Coreg DM II with CKD -Wean steroids as tolerated Moderate malnutrition -Encourage nutrition -Recommend protein supplementation Anemia in chronic illness GI bleed -Retacrit PRN BPH with LUTS -Continue Flomax Acute hypoxic respiratory failure due to COVID-19 -Continue steroid therapy -Wean Oxygen as tolerated.
[2020-08-06] MEDS: TAMSULOSIN 0.4 MG SR CAP PO SCH (22:58)
[2020-08-06] MEDS: ATORVASTATIN 10 MG TAB PO SCH (22:59)
[2020-08-07] MEDS: D5W 1,000 ML IV SCH (06:00)
[2020-08-07] MEDS: INSULIN 70/30 100 UNITS/ML SQ SCH ×2 (07:30→16:50)
[2020-08-07] MEDS: ENOXAPARIN 40 MG/0.4 ML SQ SCH (09:00)
[2020-08-07] MEDS: GLUCERNA SHAKE 237 ML CAN PO SCH ×3 (09:28→16:51)
[2020-08-07] MEDS: THIAMINE HCL 100 MG TABLET PO SCH ×2 (09:41→20:38)
[2020-08-07] MEDS: DOCUSATE NA 100 MG CAP PO SCH (09:41)
[2020-08-07] MEDS: METHYLPREDNISOLONE 40 MG INJ IV SCH ×2 (09:41→20:40)
[2020-08-07] MEDS: LIDOCAINE 4% PATCH TOP SCH (09:41)
[2020-08-07] MEDS: ZINC SULFATE 220 MG CAP PO SCH (09:41)
[2020-08-07] MEDS: FOLIC ACID 1 MG TABLET PO SCH (09:41)
[2020-08-07] MEDS: FAMOTIDINE 20 MG TAB PO SCH ×2 (09:42→20:40)
[2020-08-07] MEDS: AMLODIPINE 10 MG TAB PO SCH (09:43)
[2020-08-07] MEDS: carvediloL 12.5 MG TAB PO SCH (09:44)
[2020-08-07] MEDS: ASCORBIC ACID 500 MG TABLET PO SCH ×3 (09:44→20:39)
[2020-08-07] MEDS: VITAMIN D 1000 UNIT TAB PO SCH (09:44)
[2020-08-07] MEDS: FLUCONAZOLE 100 MG TAB PO SCH (09:44)
[2020-08-07] MEDS: CALCITROL 0.25 MCG CAP PO SCH (09:44)
[2020-08-07] MEDS: MEDIHONEY 44 ML TOPICAL TUBE TOP SCH (09:45)
[2020-08-07] MEDS: HYDROCODONE/APAP 5/325 MG TAB PO PRN ×2 (09:49→20:41)
[2020-08-07] MEDS: ATORVASTATIN 10 MG TAB PO SCH (20:40)
[2020-08-07] MEDS: TAMSULOSIN 0.4 MG SR CAP PO SCH (20:40)
[2020-08-07] MEDS: JUVEN PACKET PO SCH (20:41)
[2020-08-07] MEDS: LORazepam 2 MG/ML VIAL IV PRN (23:20)
[2020-08-08] MEDS: D5W 1,000 ML IV SCH ×2 (00:04→22:14)
[2020-08-08] MEDS ORDERED: MORPHINE 2 MG/ML SYR IV ONE (01:58)
[2020-08-08] MEDS: GLUCERNA SHAKE 237 ML CAN PO SCH ×4 (08:00→17:00)
[2020-08-08] MEDS: JUVEN PACKET PO SCH ×3 (09:00→21:00)
[2020-08-08] MEDS: CALCITROL 0.25 MCG CAP PO SCH ×2 (09:00→09:22)
[2020-08-08] MEDS: FAMOTIDINE 20 MG TAB PO SCH ×3 (09:00→22:14)
[2020-08-08] MEDS: FLUCONAZOLE 100 MG TAB PO SCH ×2 (09:00→09:23)
[2020-08-08] MEDS: DOCUSATE NA 100 MG CAP PO SCH ×2 (09:00→09:22)
[2020-08-08] MEDS: ZINC SULFATE 220 MG CAP PO SCH ×2 (09:00→09:22)
[2020-08-08] MEDS: ASCORBIC ACID 500 MG TABLET PO SCH ×4 (09:00→22:14)
[2020-08-08] MEDS: THIAMINE HCL 100 MG TABLET PO SCH ×3 (09:00→22:14)
[2020-08-08] MEDS: FOLIC ACID 1 MG TABLET PO SCH ×2 (09:00→09:22)
[2020-08-08] MEDS: VITAMIN D 1000 UNIT TAB PO SCH ×2 (09:00→09:22)
[2020-08-08] MEDS: AMLODIPINE 10 MG TAB PO SCH ×2 (09:00)
[2020-08-08] MEDS: ENOXAPARIN 40 MG/0.4 ML SQ SCH (09:00)
[2020-08-08] MEDS: carvediloL 12.5 MG TAB PO SCH ×2 (09:00→09:23)
[2020-08-08] MEDS: METHYLPREDNISOLONE 40 MG INJ IV SCH ×2 (09:24→22:30)
[2020-08-08] MEDS: LIDOCAINE 4% PATCH TOP SCH (09:25)
[2020-08-08] MEDS: INSULIN 70/30 100 UNITS/ML SQ SCH ×2 (09:25→16:52)
--- NOTE | 2020-08-08 09:40 | P.PN ---
Date of Service: 08/05/20 Subjective Subjective: Patient is doing better with no new complaints. We need to try continue weaning down the oxygen Physical Examination - Vital Signs Reviewed - Physical Exam General: Alert, In no apparent distress, Demented Respiratory: Diminished breath sound bilaterally; otherwise basilar crackles Cardiovascular: Regular rate/rhythm, Normal S1 S2, No murmurs Gastrointestinal: Normal bowel sounds, Soft and benign, Non-distended, No tenderness Musculoskeletal: No clubbing, No swelling, No tenderness Assessment & Plan - Problems (Diagnosis) (1) Pneumonia due to COVID-19 virus; severe hypoxemia Current Visit: Yes Status: Acute (2) DOMONIQUE (acute kidney injury) Current Visit: Yes Status: Acute (3) Dementia in Alzheimer's disease Current Visit: Yes Status: Acute (4) UTI (urinary tract infection) Onset Date: 03/01/17 Current Visit: No Status: Acute (5) Weakness generalized Onset Date: 03/01/17 Current Visit: No Status: Acute (6) Hypertension Current Visit: Yes Status: Acute (7) Type 2 diabetes mellitus Current Visit: Yes Status: Acute (8) CKD (chronic kidney disease) Current Visit: Yes Status: Acute (9) Leukocytosis Onset Date: 03/01/17 Current Visit: No Status: Acute (10) LGIB; hemorrhoidal bleeding Onset Date: 03/01/17 Current Visit: No Status: Acute - Plan Continue with plan of care as mentioned below 1. heplock IV; repeat labs as needed-monitor fluids closely 2. Monitor steroid usage 3. Patient is a do not resuscitate; need to readdress and discuss with family regarding plan of care 4. Advanced diet as tolerated 5. Encourage physical therapy on Wednesday 6. GI and DVT prophylaxis
--- NOTE | 2020-08-08 09:41 | P.PN ---
Date of Service: 08/06/20 Subjective Subjective: We need to keep him off the non-rebreather and wean down the oxygen saturation and keep his sats greater than 85%. Physical Examination - Vital Signs Reviewed - Physical Exam General: Alert, In no apparent distress, Demented Respiratory: Diminished breath sound bilaterally; otherwise basilar crackles Cardiovascular: Regular rate/rhythm, Normal S1 S2, No murmurs Gastrointestinal: Normal bowel sounds, Soft and benign, Non-distended, No tenderness Musculoskeletal: No clubbing, No swelling, No tenderness Assessment & Plan - Problems (Diagnosis) (1) Pneumonia due to COVID-19 virus; severe hypoxemia Current Visit: Yes Status: Acute (2) DOMONIQUE (acute kidney injury) Current Visit: Yes Status: Acute (3) Dementia in Alzheimer's disease Current Visit: Yes Status: Acute (4) UTI (urinary tract infection) Onset Date: 03/01/17 Current Visit: No Status: Acute (5) Weakness generalized Onset Date: 03/01/17 Current Visit: No Status: Acute (6) Hypertension Current Visit: Yes Status: Acute (7) Type 2 diabetes mellitus Current Visit: Yes Status: Acute (8) CKD (chronic kidney disease) Current Visit: Yes Status: Acute (9) Leukocytosis Onset Date: 03/01/17 Current Visit: No Status: Acute (10) LGIB; hemorrhoidal bleeding Onset Date: 03/01/17 Current Visit: No Status: Acute - Plan Continue with plan of care as mentioned below 1. Recheck renal function 2. Monitor steroid usage 3. Patient is a do not resuscitate; 4. Advanced diet as tolerated 5. Encourage physical therapy on Wednesday 6. GI and DVT prophylaxis
[2020-08-08] MEDS: LORazepam 2 MG/ML VIAL IV PRN (09:48)
--- NOTE | 2020-08-08 09:49 | P.PN ---
Date of Service: 08/07/20 Subjective Subjective: Spoke with daughter. She does not want to move him to another hospital. We talked about long-term acute care hospital settings. We also have talked about hospice setting. Physical Examination - Vital Signs Reviewed - Physical Exam General: Alert, In no apparent distress, Demented Respiratory: Diminished breath sound bilaterally; otherwise basilar crackles Cardiovascular: Regular rate/rhythm, Normal S1 S2, No murmurs Gastrointestinal: Normal bowel sounds, Soft and benign, Non-distended, No tenderness Musculoskeletal: No clubbing, No swelling, No tenderness Assessment & Plan - Problems (Diagnosis) (1) Pneumonia due to COVID-19 virus; severe hypoxemia Current Visit: Yes Status: Acute (2) DOMONIQUE (acute kidney injury) Current Visit: Yes Status: Acute (3) Dementia in Alzheimer's disease Current Visit: Yes Status: Acute (4) UTI (urinary tract infection) Onset Date: 03/01/17 Current Visit: No Status: Acute (5) Weakness generalized Onset Date: 03/01/17 Current Visit: No Status: Acute (6) Hypertension Current Visit: Yes Status: Acute (7) Type 2 diabetes mellitus Current Visit: Yes Status: Acute (8) CKD (chronic kidney disease) Current Visit: Yes Status: Acute (9) Leukocytosis Onset Date: 03/01/17 Current Visit: No Status: Acute (10) LGIB; hemorrhoidal bleeding Onset Date: 03/01/17 Current Visit: No Status: Acute - Plan Continue with plan of care as mentioned below 1. Continue monitoring labs closely 2. taper steroid usage 3. Patient is a do not resuscitate; 4. Advanced diet as tolerated; poor nutritional status 5. Supportive care along with wound care for stage II decubitus ulcer 6. GI and DVT prophylaxis
--- NOTE | 2020-08-08 09:50 | P.PN ---
Date of Service: 08/08/20 Subjective Subjective: Patient is agitated. Continuing to desat quite a bit. Prognosis is poor. Would probably need to get him set-up with hospice care. Physical Examination - Vital Signs Reviewed - Physical Exam General: Alert, In no apparent distress, Demented Respiratory: Diminished breath sound bilaterally; otherwise basilar crackles Cardiovascular: Regular rate/rhythm, Normal S1 S2, No murmurs Gastrointestinal: Normal bowel sounds, Soft and benign, Non-distended, No tenderness Musculoskeletal: No clubbing, No swelling, No tenderness Assessment & Plan - Problems (Diagnosis) (1) Pneumonia due to COVID-19 virus; severe hypoxemia Current Visit: Yes Status: Acute (2) DOMONIQUE (acute kidney injury) Current Visit: Yes Status: Acute (3) Dementia in Alzheimer's disease Current Visit: Yes Status: Acute (4) UTI (urinary tract infection) Onset Date: 03/01/17 Current Visit: No Status: Acute (5) Weakness generalized Onset Date: 03/01/17 Current Visit: No Status: Acute (6) Hypertension Current Visit: Yes Status: Acute (7) Type 2 diabetes mellitus Current Visit: Yes Status: Acute (8) CKD (chronic kidney disease) Current Visit: Yes Status: Acute (9) Leukocytosis Onset Date: 03/01/17 Current Visit: No Status: Acute (10) LGIB; hemorrhoidal bleeding Onset Date: 03/01/17 Current Visit: No Status: Acute - Plan Continue with plan of care as mentioned below 1. Cont supportive care 2. Wean steroids 3. Patient is a DNR 4. Advance diet as tolerated; 5. Supportive care along with wound care for stage II decubitus ulcer 6. GI and DVT prophylaxis
[2020-08-08] MEDS ORDERED: METOPROLOL TARTRATE 5 MG/5 ML INJ IV STA (09:58)
[2020-08-08] MEDS: MEDIHONEY 44 ML TOPICAL TUBE TOP SCH (10:10)
[2020-08-08 11:32] LABS: Absolute Lymphocytes (CBC) 0.6 K/uL (0.7-4.9); Basophils % 0.2 % (0-1.3); Hematocrit 31.2 % (39.6-49.0); Lymphocytes % 11.3 % (15.3-44.8); MPV 10.3 fL (7.6-11.3); RBC Red Blood Cell Count 3.41 M/uL (4.33-5.43)
[2020-08-08 12:09] LABS: Magnesium 1.8 mg/dL (1.8-2.4); Potassium 4.6 mmol/L (3.5-5.1)
[2020-08-08] MEDS ORDERED: MORPHINE 2 MG/ML SYR IV PRN (12:40)
[2020-08-08] MEDS ORDERED: LORazepam 2 MG/ML VIAL IV PRN (12:40)
[2020-08-08 12:55] LABS: Anisocytosis 1+; Blood Morphology Comment NOTED (NOT SEEN); Platelet Estimate DECR; White Blood Cell Scan OK (OK)
[2020-08-08] MEDS: HYDRALAZINE HCL 20 MG/ML VIAL IV PRN ×2 (13:05→22:30)
[2020-08-08] MEDS ORDERED: MAGNESIUM SULFATE 1 gm IVPB 1 GM/100 ML BAG IV ONE (14:00)
--- NOTE | 2020-08-08 18:51 | P.PN ---
Date of Service: 08/08/20 Vital Signs Temp Pulse Resp BP Pulse Ox 97.3 F 67 18 152/72 H 90 L 08/08/20 16:00 08/08/20 16:00 08/08/20 16:00 08/08/20 16:00 08/08/20 16:00 Medications Hydrocodone Bitart/Acetaminophen (Hydrocodone/Apap 5/325 Mg Tab) 1 tab PO Q6H PRN PRN Reason: Pain scale 5-7 (Moderate) Last Admin: 08/07/20 20:41 Dose: 1 tab Documented by: Amlodipine Besylate (Amlodipine 10 Mg Tab) 10 mg PO DAILY [facility] Last Admin: 08/08/20 09:00 Dose: Not Given Documented by: Ascorbic Acid (Ascorbic Acid 500 Mg Tablet) 500 mg PO TID [facility] Last Admin: 08/08/20 13:03 Dose: Not Given Documented by: Atorvastatin Calcium (Atorvastatin 10 Mg Tab) 10 mg PO BEDTIME [facility] Last Admin: 08/07/20 20:40 Dose: 10 mg Documented by: Benzonatate (Benzonatate 100 Mg Cap) 200 mg PO Q4HP PRN PRN Reason: COUGH Calcitriol (Calcitrol 0.25 Mcg Cap) 0.5 mcg PO DAILY [facility] Last Admin: 08/08/20 09:00 Dose: Not Given Documented by: Carvedilol (Carvedilol 12.5 Mg Tab) 12.5 mg PO DAILY [facility] Last Admin: 08/08/20 09:00 Dose: Not Given Documented by: Cholecalciferol (Vitamin D 1000 Unit Tab) 2,000 unit PO DAILY [facility] Last Admin: 08/08/20 09:00 Dose: Not Given Documented by: Dextrose (D50w 25 Gm/50 Ml Vial) 12.5 gm IV PRN PRN; Protocol PRN Reason: HYPOGLYCEMIA Docusate Sodium (Docusate Na 100 Mg Cap) 100 mg PO DAILY [facility] Last Admin: 08/08/20 09:00 Dose: Not Given Documented by: Emollient Gel (Medihoney 44 Ml Topical Tube) 1 appl TOP DAILY [facility] Last Admin: 08/08/20 10:10 Dose: 1 appl Documented by: Enoxaparin Sodium (Enoxaparin 40 Mg/0.4 Ml) 40 mg SQ DAILY [facility] Last Admin: 08/08/20 09:00 Dose: Not Given Documented by: Enteral Nutritional Formula (Glucerna Shake 237 Ml Can) 237 ml PO TIDWM [facility] Last Admin: 08/08/20 17:00 Dose: 237 ml Documented by: Famotidine (Famotidine 20 Mg Tab) 20 mg PO BID [facility]; Protocol Last Admin: 08/08/20 09:00 Dose: Not Given Documented by: Fluconazole (Fluconazole 100 Mg Tab) 100 mg PO DAILY [facility]; Protocol Last Admin: 08/08/20 09:00 Dose: Not Given Documented by: Folic Acid (Folic Acid 1 Mg Tablet) 1 mg PO DAILY [facility] Last Admin: 08/08/20 09:00 Dose: Not Given Documented by: Glucagon (Glucagon 1 Mg/Vial) 1 mg IM 1X PRN; Protocol PRN Reason: HYPOGLYCEMIA Hydralazine HCl (Hydralazine Hcl 20 Mg/Ml Vial) 10 mg IV Q4HP PRN PRN Reason: Titrate to SBP (MUST DEFINE) Last Admin: 08/08/20 13:05 Dose: 10 mg Documented by: Dextrose/Water (Dextrose In Water (1-Liter)) 1,000 mls @ 50 mls/hr IV .Q20H [facility] Last Admin: 08/08/20 00:04 Dose: 1,000 mls Documented by: Insulin Human Isoph/Insulin Regular (Insulin 70/30 100 Units/Ml) 10 unit SQ BIDAC [facility] Last Admin: 08/08/20 16:52 Dose: 10 units Documented by: L-Arginine/L-Glutamine/HMB (Dariel Packet) 1 pkt PO BID [facility] Last Admin: 08/08/20 09:00 Dose: Not Given Documented by: Lactulose (Lactulose 20 Gm/30 Ml Ucup) 10 gm PO BID PRN PRN Reason: CONSTIPATION Last Admin: 08/03/20 20:25 Dose: 10 gm Documented by: Lidocaine (Lidocaine 4% Patch) 1 patch TOP DAILY [facility] Last Admin: 08/08/20 09:25 Dose: 1 patch Documented by: Lorazepam (Lorazepam 2 Mg/Ml Vial) 0.25 mg IV Q4H PRN PRN Reason: ANXIETY Last Admin: 08/08/20 13:38 Dose: 0.25 mg Documented by: Methylprednisolone Sodium Succinate (Methylprednisolone 40 Mg Inj) 40 mg IV BID [facility] Last Admin: 08/08/20 09:24 Dose: 40 mg Documented by: Morphine Sulfate (Morphine 2 Mg/Ml Syr) 2 mg IV Q6H PRN PRN Reason: Pain scale 5-7 (Moderate) Sodium Chloride (Sodium Chloride 0.9% 10ml Inj) 10 ml IV UD PRN PRN Reason: Diluant Stop: 08/11/20 16:17 Sterile Water (Water For Inj,Sterile 10 Ml) 1.2 ml IM UD PRN PRN Reason: DILUTION OF MED Tamsulosin HCl (Tamsulosin 0.4 Mg Sr Cap) 0.4 mg PO BEDTIME [facility] Last Admin: 08/07/20 20:40 Dose: 0.4 mg Documented by: Thiamine HCl (Thiamine Hcl 100 Mg Tablet) 200 mg PO BID [facility] Last Admin: 08/08/20 09:00 Dose: Not Given Documented by: Zinc Sulfate (Zinc Sulfate 220 Mg Cap) 220 mg PO DAILY [facility] Last Admin: 08/08/20 09:00 Dose: Not Given Documented by: Microbiology Results 07/03/20 18:00 Blood - Blood Aerobic Blood Culture - Final No growth in 5 days. 07/03/20 18:00 Blood - Blood Anaerobic Blood Culture - Final No growth in 5 days. 07/03/20 17:00 Blood - Blood Aerobic Blood Culture - Final No growth in 5 days. 07/03/20 17:00 Blood - Blood Anaerobic Blood Culture - Final No growth in 5 days. 07/03/20 18:30 Clean Catch Urine [place] Count - Final No growth. 07/03/20 18:30 Clean Catch Urine - Final No growth. Assessment/ Plan: Nephrology No acute cardiac or pulmonary complaints. +CASTANON Weakness and fatigue No acute events overnight. Vitals, medications, blood work and imaging reviewed in the chart. NAD. MMM. Neck supple. CTA. RRR. Soft Abd. No C/C/E. No rash. Awake. Normal Speech. A/P: Continue the current POC and Medications other than the changes listed. AM Labs PRN. Recommend daily weight. Please see the orders for complete details. DOMONIQUE CKD 3A with protienuria -No NSAIDs Hyponatremia Hypocalcemia -Continue Vitamin D -Continue Calcitriol HTN with CKD/ CHF -Continue Amlodipine and Coreg Diastolic CHF, chronic -Continue Coreg DM II with CKD -Wean steroids as tolerated Moderate malnutrition -Encourage nutrition -Recommend protein supplementation Anemia in chronic illness GI bleed -Retacrit PRN BPH with LUTS -Continue Flomax Acute hypoxic respiratory failure due to COVID-19 -Continue steroid therapy -Wean Oxygen as tolerated.
[2020-08-08] MEDS: TAMSULOSIN 0.4 MG SR CAP PO SCH (22:13)
[2020-08-08] MEDS: ATORVASTATIN 10 MG TAB PO SCH (22:13)
[2020-08-08] MEDS ORDERED: METHYLPREDNISOLONE 40 MG INJ ONE (22:46)
[2020-08-09 06:29] LABS: Absolute Lymphocytes (CBC) 0.4 K/uL (0.7-4.9); Basophils % 0.2 % (0-1.3); Hematocrit 32.8 % (39.6-49.0); Lymphocytes % 7.4 % (15.3-44.8); MPV 10.6 fL (7.6-11.3)
[2020-08-09 06:40] LABS: BUN Blood Urea Nitrogen 31 mg/dL (7-18); Bicarbonate 30 mmol/L (21-32); Ferritin 231.4 ng/mL (26-388); Glucose Level 82 mg/dL (74-106); Magnesium 1.9 mg/dL (1.8-2.4); NT PRO-BNP 1302 pg/mL (<450); Potassium 4.7 mmol/L (3.5-5.1); Sodium Level 136 mmol/L (136-145)
[2020-08-09] MEDS: INSULIN 70/30 100 UNITS/ML SQ SCH (07:30)
--- NOTE | 2020-08-09 07:46 | RAD REPORT ---
EXAM DESCRIPTION: RAD - Chest Single View - 08/09/2020 4:41 am CLINICAL HISTORY: pneumonia COMPARISON: July 28 TECHNIQUE: AP portable chest image was obtained 08/09/2020 4:41 am . FINDINGS: Lung volumes are low but improved from the prior study. Interstitial and alveolar opacitie s are present throughout the lung rivera also showing interval improvement. Cardiomegaly and vascular engorgement are still present. No pneumothorax or large pleural effusion. No measurable pleural effu ava and no pneumothorax. No acute bony abnormality seen. No acute aortic findings suspected. IMPRESSION: Bilateral pneumonia or edema present in both lung rivera significantly improved from the July 28 study.
[2020-08-09] MEDS: GLUCERNA SHAKE 237 ML CAN PO SCH ×2 (08:00→12:00)
[2020-08-09] MEDS: ASCORBIC ACID 500 MG TABLET PO SCH ×3 (09:00→12:50)
[2020-08-09] MEDS: JUVEN PACKET PO SCH (09:00)
[2020-08-09] MEDS: ENOXAPARIN 40 MG/0.4 ML SQ SCH (09:00)
[2020-08-09] MEDS: VITAMIN D 1000 UNIT TAB PO SCH (09:19)
[2020-08-09] MEDS: AMLODIPINE 10 MG TAB PO SCH (09:19)
[2020-08-09] MEDS: FAMOTIDINE 20 MG TAB PO SCH (09:19)
[2020-08-09] MEDS: ZINC SULFATE 220 MG CAP PO SCH (09:19)
[2020-08-09] MEDS: FOLIC ACID 1 MG TABLET PO SCH (09:19)
[2020-08-09] MEDS: FLUCONAZOLE 100 MG TAB PO SCH (09:20)
[2020-08-09] MEDS: CALCITROL 0.25 MCG CAP PO SCH (09:20)
[2020-08-09] MEDS: carvediloL 12.5 MG TAB PO SCH (09:20)
[2020-08-09] MEDS: DOCUSATE NA 100 MG CAP PO SCH (09:20)
[2020-08-09] MEDS: LIDOCAINE 4% PATCH TOP SCH (09:21)
[2020-08-09] MEDS: THIAMINE HCL 100 MG TABLET PO SCH (09:22)
[2020-08-09] MEDS: MEDIHONEY 44 ML TOPICAL TUBE TOP SCH (09:25)
[2020-08-09] MEDS: MORPHINE 2 MG/ML SYR IV PRN ×2 (09:52→15:05)
--- NOTE | 2020-08-09 11:15 | P.PN ---
Subjective Date of Service: 08/09/20 Primary Care Provider: Dr. Vences Chief Complaint: Respiratory failure from [place] virus Patient is not doing well he continues to remain agitated confused combative acquiring high concentrations of oxygen Review of Systems is unable to be obtained Physical Examination - Vital Signs Temperature: 96.9 F Blood Pressure: 153/82 Pulse: 79 Respirations: 18 Pulse Ox (%): 94 - Studies Medications List Reviewed: Yes Assessment & Plan - Problems (Diagnosis) (1) Acute respiratory failure due to severe acute respiratory syndrome coronavirus 2 (SARS-CoV-2) infection Current Visit: Yes Status: Acute Plan: Respiratory failure patient is not doing well as not made any progress recommend hospice care is been year a long time without any change recommend withdrawal of care he has been here for over a month not cooperate
[2020-08-09 13:08] VITALS: BP 168/76; TEMP 96.1
[2020-08-09 13:40] VITALS: O2SAT 93
[2020-08-09] MEDS: D5W 1,000 ML IV SCH ×2 (14:22→15:12)
--- NOTE | 2020-08-09 20:39 | P.PN ---
Date of Service: 08/09/20 Vital Signs Temp Pulse Resp BP Pulse Ox 96.1 F L 61 24 H 168/76 H 93 08/09/20 13:06 08/09/20 13:06 08/09/20 15:05 08/09/20 13:06 08/09/20 15:05 Microbiology Results 07/03/20 18:00 Blood - Blood Aerobic Blood Culture - Final No growth in 5 days. 07/03/20 18:00 Blood - Blood Anaerobic Blood Culture - Final No growth in 5 days. 07/03/20 17:00 Blood - Blood Aerobic Blood Culture - Final No growth in 5 days. 07/03/20 17:00 Blood - Blood Anaerobic Blood Culture - Final No growth in 5 days. 07/03/20 18:30 Clean Catch Urine Erwinna Count - Final No growth. 07/03/20 18:30 Clean Catch Urine - Final No growth. Assessment/ Plan: Nephrology Worsening dyspnea with hypoxia. Weakness and fatigue No acute events overnight. Vitals, medications, blood work and imaging reviewed in the chart. NAD. MMM. Neck supple. CTA. RRR. Soft Abd. No C/C/E. No rash. Awake. Normal Speech. A/P: Continue the current POC and Medications other than the changes listed. AM Labs PRN. Recommend daily weight. Please see the orders for complete details. DOMONIQUE CKD 3A with proteinuria -No NSAIDs Hyponatremia Hypocalcemia -Continue Vitamin D -Continue Calcitriol HTN with CKD/ CHF -Continue Amlodipine and Coreg Diastolic CHF, chronic -Continue Coreg DM II with CKD -Wean steroids as tolerated Moderate malnutrition -Encourage nutrition -Recommend protein supplementation Anemia in chronic illness GI bleed -Retacrit PRN BPH with LUTS -Continue Flomax Acute hypoxic respiratory failure due to COVID-19 -Continue steroid therapy -Wean Oxygen as tolerated. Poor prognosis due to failure to improve.
--- NOTE | 2020-08-11 21:23 | P.DS ---
Discharge Date: 08/09/20 Primary Care Provider: Dr. 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 Family reports the patient has not been acting himself lately, was noted to be hypotensive at home 90s/60s. They report he has been complaining of a headache behind his right eye intermittently over the past few days. Family were concerned so they brought the patient in. Workup in ED notable for elevated creatinine at 2.27, elevated pro calcitonin 1.29, UA suggestive of urinary tract infection, COVID +. No leukocytosis Patient is alert and oriented himself only, unable to provide any history. History obtained from patient's daughter. Daughter reports that the patient has some dementia but mostly has a " sharp mind". Spoke with patient's PCP, reports patient's cognitive function and it has been slowly declining over the past year or so as well. Hospital Course: Patient has not improved. His chest x-ray shows diffuse inflammation throughout both lung rivera. Patient's prognosis is poor. I spoke to his daughter who is his medical power of candy spreader helper and she spoke to her siblings and I was able to communicate with him on pace time and decision was made to proceed with hospice care. Vital Signs/Physical Exam: Temp Pulse Resp BP Pulse Ox 96.1 F L 61 24 H 168/76 H 93 08/09/20 13:06 08/09/20 13:06 08/09/20 15:05 08/09/20 13:06 08/09/20 15:05 General: Confused Laboratory Data at Discharge: WBC 5.70 K/uL (4.3-10.9) 08/09/20 05:55 Hgb 10.9 g/dL (13.6-17.9) L 08/09/20 05:55 Hct 32.8 % (39.6-49.0) L 08/09/20 05:55 Plt Count 82 K/uL (152-406) L 08/09/20 05:55 PT 12.0 SECONDS (9.5-12.5) 08/05/20 03:42 INR 1.04 08/05/20 03:42 APTT 20.0 SECONDS (24.3-36.9) L 08/05/20 03:42 Sodium 136 mmol/L (136-145) 08/09/20 05:55 Potassium 4.7 mmol/L (3.5-5.1) 08/09/20 05:55 BUN 31 mg/dL (7-18) H 08/09/20 05:55 Creatinine 0.79 mg/dL (0.55-1.3) 08/09/20 05:55 Glucose 82 mg/dL (74-106) 08/09/20 05:55 Phosphorus 3.0 mg/dL (2.5-4.9) 08/08/20 10:50 Magnesium 1.9 mg/dL (1.8-2.4) 08/09/20 05:55 Total Bilirubin 0.9 mg/dL (0.2-1.0) 08/05/20 03:42 AST 37 U/L (15-37) 08/05/20 03:42 ALT 202 U/L (12-78) H 08/05/20 03:42 Alkaline Phosphatase 68 U/L (45-117) 08/05/20 03:42 Home Medications: Amlodipine [Norvasc] 10 mg PO DAILY 07/04/20 Carvedilol [Coreg] 12.5 mg PO DAILY 07/04/20 Chlorthalidone [Hygroton 25mg Tab] 25 mg PO DAILY 07/04/20 Clopidogrel Bisulfate [Plavix] 75 mg PO DAILY 07/04/20 Glipizide [Glipizide ER] 5 mg PO BID 07/04/20 Quetiapine Fumarate [Seroquel] 25 mg PO BID 07/04/20 RX: Lovastatin 20 mg PO DAILY 07/04/20 Tamsulosin [Flomax] 0.4 mg PO BEDTIME 07/04/20 Physician Discharge Instructions: Proceed to hospice care Followup: NONE,NONE [Primary Care Provider] - Time spent managing pt's care (in minutes): 35
== END 2020-08-09 15:40 | disposition hospice, inpatient (51) | DRG 177 ==
LOC: ER 16:05 → ERHOLD 18:56 → 4TH 21:40 → OBSVTOIN 07-05 13:28
PROVIDERS: ADMIT Hospitalist; ATTEND Hospitalist
PROC: 5A09557 Assistance with Respiratory Ventilation, Greater than 96 Consecutive Hours, Continuous Positive Airway Pressure (ICD-10-PCS; principal; 2020-07-09)
DX: U07.1 COVID-19 (principal); G93.41 Metabolic encephalopathy; J12.82 Pneumonia due to coronavirus disease 2019; J96.01 Acute respiratory failure with hypoxia; E43 Unspecified severe protein-calorie malnutrition; D62 Acute posthemorrhagic anemia; N39.0 Urinary tract infection, site not specified; N17.9 Acute kidney failure, unspecified; E87.1 Hypo-osmolality and hyponatremia; I50.32 Chronic diastolic (congestive) heart failure; I13.0 Hypertensive heart and chronic kidney disease with heart failure and stage 1 through stage 4 chronic kidney disease, or unspecified chronic kidney disease; E87.0 Hyperosmolality and hypernatremia; N18.32 Chronic kidney disease, stage 3b; E11.22 Type 2 diabetes mellitus with diabetic chronic kidney disease; E11.65 Type 2 diabetes mellitus with hyperglycemia; E78.5 Hyperlipidemia, unspecified; K64.9 Unspecified hemorrhoids; G30.9 Alzheimer's disease, unspecified; F02.80 Dementia in other diseases classified elsewhere, unspecified severity, without behavioral disturbance, psychotic disturbance, mood disturbance, and anxiety; N40.1 Benign prostatic hyperplasia with lower urinary tract symptoms; D69.6 Thrombocytopenia, unspecified; D63.8 Anemia in other chronic diseases classified elsewhere; L89.152 Pressure ulcer of sacral region, stage 2; D72.829 Elevated white blood cell count, unspecified; M79.604 Pain in right leg; E83.51 Hypocalcemia; K21.9 Gastro-esophageal reflux disease without esophagitis; Z66 Do not resuscitate; Z79.02 Long term (current) use of antithrombotics/antiplatelets; Z79.899 Other long term (current) drug therapy; Z79.4 Long term (current) use of insulin; Z90.49 Acquired absence of other specified parts of digestive tract; Z68.30 Body mass index [BMI] 30.0-30.9, adult
CPT/HCPCS: 36415; 51702; 70450; 70551; 71045; 74018; 74176; 80048; 80053; 81003; 81015; 82565; 82728; 82746; 82947; 83010; 83540; 83605; 83615; 83735; 83880; 84100; 84145; 84450; 84460; 85014; 85018; 85025; 85027; 85044; 85379; 85610; 85730; 86140; 87040; 87086; 87088; 93971; 94002; 94003; 94010; 94660; 94760; 96361; 96365; 97110; 97112; 97116; 97161; 97530; 99251; 99285; C9113; G0378; J0360; J0696; J1610; J1630; J1650; J1815; J1940; J2270; J2765; J2920; J2930; J3475; J3486; J7030; J7799; Q5106; U0003

== ENCOUNTER 2020-08-09 15:10 | Inpatient (IN) | payer OTHER ==
[2020-08-09] MEDS ORDERED: LORazepam 2 MG/ML VIAL IV PRN (16:24)
[2020-08-09 16:35] VITALS: BMI 30.7
[2020-08-09] MEDS ORDERED: BISACODYL 10 MG RECTAL SUPP PR PRN (16:54)
[2020-08-09] MEDS ORDERED: SCOPOLAMINE HYDROBROMIDE PATCH TD PRN (16:55)
[2020-08-09] MEDS ORDERED: ONDANSETRON 4 MG/2 ML VIAL IV PRN (16:56)
[2020-08-09] MEDS ORDERED: ACETAMINOPHEN 650MG/RECT SUPP PR PRN (16:56)
[2020-08-09] MEDS: LORazepam 2 MG/ML VIAL IV SCH ×2 (17:00→20:59)
[2020-08-09] MEDS: MORPHINE 2 MG/ML SYR IV SCH ×2 (17:00→20:57)
--- OUTSIDE RECORDS SUMMARY | 2020-08-09 17:48 | XMS REPORT | Continuity of Care Document ---
:1935 Author Organization [facility] t Address [address] [place] [address] Care Team Providers Name Role Phone Festus Vences MD Primary Care Physician Pavithra Livingston MD Attending Clinician [phone] Cara AIKEN Attending Clinician Unavailable MAURILIO SIMS Attending Clinician Unavailable Jacqueline BURCH Admitting Clinician Unavailable MAURILIO SIMS Admitting Clinician Unavailable Problems Condition Condition Condition Status Onset Resolution Last Treating Co mments Source Name Details Category Date Date Treatment Clinician Date Altered Altered Disease Active [facility] status status [facility]:00: Medical 00 [place] Syncope, Syncope, Disease [facility]ifie unspecifie 03-10 Angy kes - d syncope d syncope 00:00: Medi magdalena type type 00 Center Carotid Carotid Disease Active [facility] artery [facility] - stenosis stenosis 00:00: Medica l 00 Center S/P S/P Disease Active [address] carotid carotid 8-20 [facility] - endarterec endarterec 00:00: Me dical gee gee 00 [place] ([facility] 01/31) 01/31) Respirator Respirator Disease Active 2018- [facility] y y 8-20 [facility] - insufficie insufficie 00:00: Me dical ncy ncy 00 Center Hypertensi Hypertensi Disease Active [address] ve urgency ve urgency 8- Angy kes - 00:00: Medical 00 Center Diabetes Diabetes Disease Active [facility] mellitus mellitus [facility] - 00:[facility]: Medical 00 Center GERD GERD Disease Active [facility] (gastroeso (gastroeso 01-31 Angy kes - phageal phageal 00:00: Medical reflux reflux 00 Center disease) disease) Hyperlipid Hyperlipid Disease Active [facility] emia emia 01-31 [facility] - 00:00: Medical 00 [place] Hypertensi Hypertensi Disease Active [facility] on on 01-31 [facility] - 00:00: Medical 00 [place] Carotid Carotid Disease Active [facility] artery artery [facility] - occlusion occlusion [facility] Allergies, Adverse Reactions, Alerts This patient has no known allergies or adverse reactions. Family History Family Member Diagnosis Comments Start Date Stop Date Source Natural sister Heart disease [facility] Natural brother Heart disease [facility] Natural father Heart disease [facility] Natural father Hyperlipidemia [facility] Natural father Hypertension [facility] Natural mother Heart disease [facility] Natural mother Hyperlipidemia [facility] Natural mother Hypertension [facility] Social History Social Habit Start Date Stop Date Quantity Comments Source [facility] Dr[facility] Binge Medical [facility] ter Sex Assigned At [facility] Tobacco use and 2019-03-10 2019-03-[address] [facility] - exposure 00:00:00 00:00:00 [facility] Alcohol intake 2019-03-10 2019-03-10 Current [facility] es - 00:00:00 00:00:00 non-drinker of Medical nter alcohol (finding) History SDOH 2019-01-30 2019-01-30 1 [facility] - Alcohol Frequency 00:00:00 00:00:00 [facility] Smoking Status Start Date Stop Date Source Never smoker [facility] Medications Ordered Filled Start Stop Current Ordering Indication Dosage Frequency Signature Comments Components Source Medication Medication Date Date Medication? Clinician (SIG) Name Name losartan 2018-06 2020- No 25mg QD Take [address] [facility] [address] ([facility]) 25 0-03 10-02 tablet [...] 00:00:00 protein (procedure) Medical Center [code = 011793549] Future Scheduled 2019-08-[address] Angy kes - Test 00:00:00 measurement Medical Center (procedure) [code = 92368871] Future Scheduled 2019-06-[address] [facility] u[facility] - Test 00:00:00 WELLNESS (YEAR 2 or Medical Center FIRST YEAR if no IPPE) [code = MEDICARE ANNUAL WELLNESS (YEAR 2 or FIRST YEAR if no IPPE)] Future Scheduled 1998 PNEUMOCOCCAL 65+ YRS [facility] - Test 00:00:00 (1 of 1 - Medical Center [id number] PCV13) [code = PNEUMOCOCCAL 65+ YRS (1 of 1 - [id number] PCV13)] Future Scheduled 1943 DIABETIC EYE EXAM [facility] - Test 00:00:00 [code = DIABETIC EYE Medical Center EXAM] Future Scheduled [address] [facility] es - Test 00:00:00 examination Medical Center (regime/therapy) [code = 651097783] Encounters Start End Encounter Admission Attending Care Care Encounter Source Date/Time Date/Time Type Type Clinicians Facility Department ID 2019-10-04 2019-10-04 Office Rocky RODRIGUEZ [id number] 97 13:53:57 14:23:57 Visit [facility], AMBULATOR [id number] Pavithra Y [id number] Myra [id number] Results Test Description Test Time Test Comments Results Result Comments Source POCT-GLUCOSE METER 2019-03-15 12:05:00 Test Item Value Reference Range Interpretation Comme nts POC-GLUCOSE METER (BEAKER) (test 140 mg/dL 70-110 H TESTED AT [facility] [address] code = 1538) [facility] 7703 0 POCT-GLUCOSE [id number] 09:37:00 Test Item Value Reference Range Interpretation Comments POC-GLUCOSE METER 133 mg/dL 70-110 H TESTED AT [facility] 6720 (BEAKER) (test code = ASYA Modi [facility] 1538) [address] BASIC METABOLIC [id number] 06:58:00 Test Item Value Reference Range Interpretation [...] NOT APPLICABLE FOR DIALYSIS PATIEN TS. POCT-GLUCOSE [id number] 21:04:00 Test Item Value Reference Range Interpretation Comments POC-GLUCOSE METER 161 mg/dL 70-110 H TESTED AT [facility] 6720 (BEAKER) (test code = ASYA CASILL[place] 1538) [address] EEG AWAKE AND [id number] 18:24:00Reason for exam:->CEREBROVASCULAR ACCIDENTDate(s) of EE03/14/2019 DATE OF REPORT: 03/14/2019 ACC: [id number] EEG Number: [id number] TestLocation: Inpatient Room Start time: 03/14/2019 09:03 Stop time: 03/14/2019 09:24 ICD-10: R41.82, R55 CPT Code: 89099 HISTORY: 83 y.o. male with hypertension, chronic [...] Ceasar Lerner MD Neurophysiology Attending POCT- GLUCOSE [id number] 18:04:00 Test Item Value Reference Range Interpretation Comments POC-GLUCOSE METER 111 mg/dL 70-110 H TESTED AT [place] [address] ([facility]) (test code = [facility] 1538) [address] POCT-GLUCOSE [id number] 14:11:00 Test Item Value Reference Range Interpretation Comments POC-GLUCOSE METER 113 mg/dL 70-110 H TESTED AT [place] [address] ([facility]) (test code = [facility] 1538) [address] POCT-GLUCOSE [id number] 08:00:00 Test Item Value Reference Range Interpretation Comments POC-GLUCOSE METER 107 mg/dL 70-110 TESTED AT [place] [address] ([facility]) (test code = [facility] 1538) [address] BASIC METABOLIC [id number] 07:50:00 Test Item Value Reference Range Interpretation Comments SODIUM (BEAKER) 137 meq/L 136-145 (test code = 381) POTASSIUM (BEAKER) 3.8 meq/L 3.5-5.1 (test code = 379) CHLORIDE (BEAKER) 104 meq/L 98-107 (test code = 382) CO2 (BEAKER) (test 25 meq/L 22-29 code = 355) BLOOD UREA NITROGEN 34 mg/dL 7-21 H (BEAKER) (test code = 354) CREATININE (BEAKER) 1.90 [...] 0-0 (BEAKER) (test code = 413) POCT-GLUCOSE [id number] 21:38:00 Test Item Value Reference Range Interpretation Comments POC-GLUCOSE METER 110 mg/dL 70-110 TESTED AT [facility] 6720 ([facility]) (test code = [place] 1538) [address] POCT-GLUCOSE [id number] 17:14:00 Test Item Value Reference Range Interpretation Comments POC-GLUCOSE METER 146 mg/dL 70-110 H TESTED AT [place] [address] ([facility]) (test code = ASYA Modi [facility] 1538) [address] POCT-GLUCOSE [id number] 12:23:00 Test Item Value Reference Range Interpretation Comments POC-GLUCOSE METER 139 mg/dL 70-110 H TESTED AT [place] [address] ([facility]) (test code = ASYA Modi [facility] 1538) [address] POCT-GLUCOSE [id number] 10:11:00 Test Item Value Reference Range Interpretation Comments POC-GLUCOSE METER 118 mg/dL 70-110 H TESTED AT [place] [address] ([facility]) (test code = ASYA Modi [facility] 1538) [address] POCT-GLUCOSE [id number] 20:41:00 Test Item Value Reference Range Interpretation Comments POC-GLUCOSE METER 118 mg/dL 70-110 H TESTED AT [place] [address] ([facility]) (test code = ASYA Modi [facility] 1538) [address] POCT-GLUCOSE [id number] 18:31:00 Test Item Value Reference Range Interpretation Comments POC-GLUCOSE METER 110 mg/dL 70-110 TESTED AT [place] [address] ([facility]) (test code = ASYA Modi [facility] 1538) [address] POCT-GLUCOSE [id number] 14:25:00 Test Item Value Reference Range Interpretation Comments POC-GLUCOSE METER 101 mg/dL 70-110 TESTED AT [place] [address] ([facility]) (test code = ASYA Modi [facility] 1538) [address] [id number] 12:15:00 Test Item Value Reference Range Interpretation Comments RPR SCREEN ([facility]) (test code = Nonreactive Nonreactive 420) POCT-GLUCOSE [id number] 10:11:00 Test Item Value Reference Range Interpretation Comments POC-GLUCOSE METER 98 mg/dL 70-110 TESTED AT [place] [address] ([facility]) ([facility] = [facility] [address] 1538) BASIC METABOLIC [id number] 06:57:00 Test Item Value Reference Range Interpretation Comments SODIUM ([facility]) 138 meq/L 136-145 (test code = 381) POTASSIUM ([facility]) 4.2 meq/L 3.5-5.1 (test code = 379) [...] 0-0 (BEAKER) (test code = 413) POCT-GLUCOSE [id number] 21:33:00 Test Item Value Reference Range Interpretation Comments POC-GLUCOSE METER 91 mg/dL 70-110 TESTED AT [facility] 6720 (BEAKER) (test code = [facility] Ly [facility] [address] 1538) POCT-GLUCOSE [id number] 17:12:00 Test Item Value Reference Range Interpretation Comments POC-GLUCOSE METER 128 mg/dL 70-110 H TESTED AT [place] [address] (BEAKER) (test code = [facility] 1538) [address] POCT-GLUCOSE [id number] 17:08:00 Test Item Value Reference Range Interpretation Comments POC-GLUCOSE METER 115 mg/dL 70-110 H [facility] AT [place] [address] [facility] (test code = [facility] 1538) [address] BASIC METABOLIC [id number] 08:50:00 Test Item Value Reference Range Interpretation [...] (test code = 413) MR, BRAIN, WITHOUT [id number] 06:09:00Reason for exam:- >CEREBROVASCULAR ACCIDENTFINAL REPORT MRI [...] Verified Date/Time: 03/11/2019 06:09:32 TSH/FREE T4 IF [id number] 19:42:00 Test Item Value Reference Range Interpretation Comments THYROID STIMULATING HORMONE 1.98 uIU/mL 0.35-4.94 (BEAKER) (test code = 772) VITAMIN B12 AND [id number] 19:42:00 Test Item Value Reference Range Interpretation Comments VITAMIN B12 (BEAKER) (test code = 243 pg/mL 213-816 774) FOLATE (BEAKER) (test code = 362) 9.3 ng/mL >=7.0 URINALYSIS W/ REFLEX URINE [id number] 19:07:00 Test Item Value Reference Range Interpretation [...] 514) SOURCE(BEAKER) (test code = 2795) POCT-GLUCOSE [id number] 19:04:00 Test Item Value Reference Range Interpretation Comments POC-GLUCOSE METER 100 mg/dL 70-110 TESTED AT [facility] 6720 ([facility]) (test code = ASYA [place] 1538) [address] [id number] 14:38:00 Test Item Value Reference Range Interpretation [...] mechanical heart valves.CBC W/PLT COUNT & AUTO [id number] 14:23:00 Test Item Value Reference Range Interpretation [...] PERCENT (BEAKER) (test code = 2801) TROPONIN [id number] 14:13:00 Test Item Value Reference Range Interpretation [...] failure, acidosis, acute neurological disease, and persistent tachyarrhythmia.[id number] 14:07:00 Test Item Value Reference Range Interpretation Comments MAGNESIUM (BEAKER) (test code = 2.0 mg/dL 1.6-2.6 627) BASIC METABOLIC [id number] 14:07:00 Test Item Value Reference Range Interpretation [...] PATIEN TS. RAD, CHEST, 1 VIEW, NON [id number] 14:01:00Reason for exam:->strokeFINAL REPORT Clinical History: stroke Comparison Study: None Findings: The heart and lungs are within normal limits. The pleural spaces are clear. There is no pneumothorax. Degenerative changes are seen. Impression: No active cardiopulmonary disease. Signed: Dean Telloeport Verified Date/Time: 03/10/2019 14:01:41 Reading Location: [facility] Radiology Reading Room [facility]/STROKE [id number] 13:28:00Reason for exam:->AMSWhat is the patient's sedation [...] MDReport Verified Date/Time: 03/10/2019 13:28:27 Reading Location: [facility] C013V Neuro Reading Room TISSUE EXAM 2019-02-08 17:52:00Surgical Pathology Report Case: [id number] Authorizing Provider: Manan Sims, Collected: 01/31/2019 0829 OrderingLocation: [facility] Received: 01/31/2019 0938 PERIOPERATIVE SERVICES Pathologist: Montana Kaufman MD Specimen: Plaque, right carotid plaque ARTERY, RIGHT CAROTID, ENDARTERECTOMY:CALCIFIC ATHEROSCLEROTIC PLAQUE Signing Pathologist Direct Phone Line: [phone] carotid plaque The specimen is received in formalin and consists of a portion of fibrotic, calcified, vasculartissue measuring 3.5 x 1.1 x 0.5 cm. Decorating Kiln Operator sections are submitted in one cassette for decalcification. CB/ewPerformedPOCT-GLUCOSE [id number] 17:51:00 Test Item Value Reference Range Interpretation Comments POC-GLUCOSE METER 129 mg/dL 70-110 H TESTED AT [facility] 67 [facility] (test code = [facility] Ly [facility] 1538) [address] POCT-GLUCOSE [id number] 08:26:00 Test Item Value Reference Range Interpretation Comments POC-GLUCOSE METER 136 mg/dL 70-110 H TESTED AT [facility] 6720 ([facility] (test code = [place] [address] [facility] 1538) [address] [id number] 06:14:00 Test Item Value Reference Range Interpretation Comments MAGNESIUM ([facility]) (test code = 2.0 mg/dL 1.6-2.6 627) BASIC METABOLIC [id number] 06:14:00 Test Item Value Reference Range Interpretation [...] 0-0 (BEAKER) (test code = 413) POCT-GLUCOSE [id number] 18:44:00 Test Item Value Reference Range Interpretation Comments POC-GLUCOSE METER 148 mg/dL 70-110 H TESTED AT [place] [address] (BEAKER) (test code = [facility] 1538) [address] POCT-GLUCOSE [id number] 14:58:00 Test Item Value Reference Range Interpretation Comments POC-GLUCOSE METER 138 mg/dL 70-110 H TESTED AT [place] [address] ([facility]) (test code = [facility] 1538) [address] HEMOGLOBIN [id number] 11:52:00 Test Item Value Reference Range Interpretation Comments HEMOGLOBIN A1C (BEAKER) (test code = 6.4 % 4.3-6.1 H 368) POCT-GLUCOSE [id number] 08:45:00 Test Item Value Reference Range Interpretation Comments POC-GLUCOSE METER 144 mg/dL 70-110 H TESTED AT [place] [address] ([facility] (test code = [facility] 1538) [address] [id number] 04:50:00 Test Item Value Reference Range Interpretation Comments PHOSPHORUS (BEAKER) (test code = 5.2 mg/dL 2.3-4.7 H 604) [id number] 04:50:00 Test Item Value Reference Range Interpretation Comments MAGNESIUM (BEAKER) (test code = 2.0 mg/dL 1.6-2.6 627) BASIC METABOLIC [id number] 04:50:00 Test Item Value Reference Range Interpretation [...] (BEAKER) (test code = 413) BLOOD GAS, [id number] 04:27:00 Test Item Value Reference Range Interpretation [...] (test code = 1819) 28.0 % CALCIUM, [id number] 04:26:00 Test Item Value Reference Range Interpretation Comments CALCIUM IONIZED (BEAKER) (test 1.26 mmol/L 1.12-1.27 code = 698) PH, BLOOD (BEAKER) (test code = 7.35 1810) POCT-GLUCOSE [id number] 00:57:00 Test Item Value Reference Range Interpretation Comments POC-GLUCOSE METER 110 mg/dL 70-110 TESTED AT [facility] 67 ([facility] (test code = [place] 1538) [address] POCT-GLUCOSE [id number] 18:45:00 Test Item Value Reference Range Interpretation Comments POC-GLUCOSE METER 122 mg/dL 70-110 H TESTED AT [facility] 6720 ([facility] (test code = [place] 1538) [address] [id number] 11:33:00 Test Item Value Reference Range Interpretation Comments PHOSPHORUS (BEAKER) (test code = 3.6 mg/dL 2.3-4.7 604) [id number] 11:33:00 Test Item Value Reference Range Interpretation Comments MAGNESIUM (BEAKER) (test code = 2.0 mg/dL 1.6-2.6 627) BASIC METABOLIC [id number] 11:33:00 Test Item Value Reference Range Interpretation [...] APPLICABLE FOR DIALYSIS PATIEN TS. HEPATIC FUNCTION [id number] 11:33:00 Test Item Value Reference Range Interpretation [...] (test code = 13 U/L 6-55 347) [id number] 11:03:00 Test Item Value Reference Range Interpretation [...] (BEAKER) (test code = 413) BLOOD GAS, [id number] 10:50:00 Test Item Value Reference Range Interpretation [...] (test code = 1819) 28.0 % GLUCOSE-STAT [id number] 10:50:00 Test Item Value Reference Range Interpretation Comments GLUCOSE RANDOM (BEAKER) (test code 146 mg/dL 70-110 H = 652) HGB/HCT (H&H) - STAT [id number] 10:50:00 Test Item Value Reference Range Interpretation Comments HEMOGLOBIN (BEAKER) (test code = 12.6 g/dL 13.0-16.8 L 410) HEMATOCRIT (BEAKER) (test code = 37.0 % 40.0-50.0 L 411) CALCIUM, [id number] 10:50:00 Test Item Value Reference Range Interpretation Comments CALCIUM IONIZED (BEAKER) (test 1.23 mmol/L 1.12-1.27 code = 698) PH, BLOOD (BEAKER) (test code = 7.36 1810) SODIUM NA-STAT [id number] 10:49:00 Test Item Value Reference Range Interpretation Comments SODIUM (BEAKER) (test code = 381) 138 meq/L 135-148 POTASSIUM-STAT [id number] 10:49:00 Test Item Value Reference Range Interpretation Comments POTASSIUM (BEAKER) (test code = 4.2 meq/L 3.6-5.5 379) POCT-GLUCOSE [id number] 06:30:00 Test Item Value Reference Range Interpretation Comments POC-GLUCOSE METER 125 mg/dL 70-110 H TESTED AT [facility] 6720 (BEAKER) (test code = [place] 1538) [address] CBC W/PLT COUNT & AUTO [id number] 15:40:00 Test Item Value Reference Range Interpretation [...] Received comment: User comments: Slide comments:BASIC METABOLIC [id number] 13:49:00 Test Item Value Reference Range Interpretation [...] APPLICABLE FOR DIALYSIS PATIEN TS. Specimen slightly [id number] 13:46:00 Test Item Value Reference Range Interpretation Comments PARTIAL THROMBOPLASTIN TIME 27.1 seconds 22.5-36.0 (BEAKER) (test code = 760) PROTHROMBIN [id number] 13:45:00 Test Item Value Reference Range Interpretation [...]
[2020-08-10] MEDS: MORPHINE 2 MG/ML SYR IV SCH ×5 (01:09→13:20)
[2020-08-10] MEDS: LORazepam 2 MG/ML VIAL IV SCH ×5 (01:09→13:21)
[2020-08-10] MEDS: LORazepam 2 MG/ML VIAL IV PRN (22:01)
[2020-08-11] MEDS: MORPHINE 2 MG/ML SYR IV PRN ×4 (00:33→22:05)
[2020-08-11] MEDS: LORazepam 2 MG/ML VIAL IV PRN ×2 (11:30→19:27)
--- NOTE | 2020-08-11 21:34 | P.HP ---
Certification for Inpatient Patient admitted to: Inpatient With expected LOS: >2 Midnights Patient will require the following post-hospital care: Hospice Practitioner: I am a practitioner with admitting privileges, knowledge of patient current condition, hospital course, and medical plan of care. Services: Services provided to patient in accordance with Admission requirements found in Title 42 Section 412.3 of the Code of Federal Regulations Patient History Date of Service: 08/10/20 Reason for admission: inpatient hospice for acute respiratory failure History of Present Illness: patient is an 85-year-old gentleman who has declined after being diagnosed with COVID-19 pneumonia. Patient has diffuse inflammation and has been getting more hypoxic. Since there was no improvement over the course of the last month family has decided to proceed with inpatient hospice care. Family is wanting medication only on an as-needed basis. They were worried that we will over sedate patient even though he is not in pain. I did tell her that it is unlikely for us to do this but I will make sure the nurses are aware and all pain and sedatives will be p.r.n.. Allergies No Known Allergies Allergy (Verified 07/03/20 22:36) Home Medications: Amlodipine [Norvasc] 10 mg PO DAILY 07/04/20 Carvedilol [Coreg] 12.5 mg PO DAILY 07/04/20 Chlorthalidone [Hygroton 25mg Tab] 25 mg PO DAILY 07/04/20 Clopidogrel Bisulfate [Plavix] 75 mg PO DAILY 07/04/20 Glipizide [Glipizide ER] 5 mg PO BID 07/04/20 Lovastatin 20 mg PO DAILY 07/04/20 Quetiapine Fumarate [Seroquel] 25 mg PO BID 07/04/20 Tamsulosin [Flomax] 0.4 mg PO BEDTIME 07/04/20 - Past Medical/Surgical History Diabetic: Yes -: HTN -: DM Type 2 -: GERD -: HYPERLIPIDEMIA -: BPH -: KIDNEY PROBLEMS -: dementia -: [place] -: APPENDECTOMY - Family History Brother Medical History: Heart disease, Hypertension Sister Medical History: Heart disease, Hypertension - Social History Smoking Status: Unknown if ever smoked Alcohol use: No CD- Drugs: No Caffeine use: No Review of Systems is unable to be obtained Physical Examination - Vital Signs Temperature: 96.3 F Blood Pressure: 131/71 Pulse: 91 Respirations: 24 Pulse Ox (%): 97 - Physical Exam General: Unresponsive HEENT: Atraumatic Neck: Supple Respiratory: Expiratory wheezes, Rhonchi/gurgles Cardiovascular: Regular rate/rhythm, Normal S1 S2 Gastrointestinal: Normal bowel sounds, Soft and benign, Non-distended, W/out succussion splash Musculoskeletal: No clubbing Assessment & Plan - Problems (Diagnosis) (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 Patient is currently on BiPAP but we will put him on non-rebreather and nasal cannula at this time. Keep saturations stable as tolerated Discharge Plan: Other (hospice) - Advance Directives Does patient have a Living Will: No Does patient have a Durable POA for Healthcare: No - Code Status/Comfort Care Code Status Assessed: Yes Code Status: Do Not Attempt Resuscitat Comfort Measures: Hospice Care Critical Care: No Time Spent Managing PTS Care (In Minutes): 35
--- NOTE | 2020-08-11 21:36 | P.PN ---
Subjective Date of Service: 08/11/20 Subjective: Other ( family at bedside. 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 Patient is on non-rebreather and nasal cannula at this time. Keep saturations stable as tolerated. - Advance Directives Does patient have a Living Will: No Does patient have a Durable POA for Healthcare: No - Code Status/Comfort Care Code Status: Do Not Attempt Resuscitat Comfort Measures: Hospice Care Critical Care: No Time Spent Managing PTS Care (In Minutes): 30
[2020-08-12] MEDS: MORPHINE 2 MG/ML SYR IV PRN ×5 (02:58→20:27)
[2020-08-12] MEDS: LORazepam 2 MG/ML VIAL IV PRN ×2 (03:17→12:22)
[2020-08-13] MEDS: MORPHINE 2 MG/ML SYR IV PRN ×7 (02:41→20:22)
[2020-08-13] MEDS: LORazepam 2 MG/ML VIAL IV PRN ×4 (05:25→18:50)
[2020-08-14] MEDS: LORazepam 2 MG/ML VIAL IV PRN ×3 (00:32→10:35)
[2020-08-14] MEDS: MORPHINE 2 MG/ML SYR IV PRN ×2 (04:07→09:42)
[2020-08-14 08:03] VITALS: BP 113/58; TEMP 97.6
[2020-08-14 10:32] VITALS: O2SAT 82
== END 2020-08-14 10:49 | disposition hospice, home (50) | DRG 951 ==
LOC: 4TH 15:10
PROVIDERS: ADMIT Hospitalist; ATTEND Family Medicine
DX: Z51.5 Encounter for palliative care (principal)
CPT/HCPCS: 94660; J2270